=== PATIENT | male | born 1945 | race Caucasian/White ===

== ENCOUNTER 2019-01-24 12:55 | Emergency (ER) | payer MEDICARE, SELFPAY ==
--- NOTE | ~2019-01-24 | CT_ITS ---
EXAMINATION: CT abdomen pelvis w con DATE: 01/24/2019 14:47 INDICATION: Right abdominal pain. TECHNIQUE: Computed tomography (CT) of the abdomen and pelvis was performed with 100 mL Omnipaque 350 intravenous contrast. Automated exposure control and iterative reconstruction technique were employe d. The dose-length product was 881.66 mGy-cm. COMPARISON: CT abdomen and pelvis 07/16/2017 FINDINGS: The visualized portions of the lung bases demonstrate emphysema and chronic lung disease. N o pleural effusion. The heart size is normal. No pericardial effusion. The liver, gallbladder, spleen , pancreas, adrenal glands, and kidneys are normal. The prostate is mildly enlarged. There are no dil ated loops of bowel. The appendix is normal. There are no pathologically enlarged lymph nodes. There is no free intraperitoneal fluid. 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 There is mild lumbar spondylosis. IMPRESSION: 1. No specific etiology for the patient's symptoms. Reviewed, dictated and finalized at location B. ORATE RELATIONS DIRECTOR
[2019-01-24 13:05] VITALS: BP 126/78; PULSE 91; RESP 20; TEMP 36.8; O2SAT 93
--- NOTE | 2019-01-24 13:11 | ED.ABDPAIN ---
HPI - Abdominal Pain General Chief Complaint: Abdominal Pain Stated Complaint: lower r side pain Source: patient Mode of arrival: ambulatory Limitations: no limitations History of Present Illness HPI narrative: Mr. Watson is a 73 year old man who presents with a complaint of flank pain. It started early today. There is dull aching in the RUQ and right flank. He denies n/v/d. No fevers. No sick contacts. He does recall a concern with Potassium in the past. He wonders if this is causing liver damage and presents for evaluation. He recalls that he was seen here 2 days after dizziness. After his discharge, he had no further dizziness and was well until this AM when he started to have RUQ pain. Related Data Home Medications Medication Instructions Recorded Confirmed albuterol sulfate 1.25 mg INHALATION Q4H 01/18/19 01/24/19 albuterol sulfate [ProAir HFA] 1 inh INHALATION QID PRN 01/18/19 01/24/19 carvedilol [Coreg] 3.125 mg PO DAILY 01/18/19 01/24/19 fluticasone propion-salmeterol 1 inh INHALATION Q12H 01/18/19 01/24/19 [Advair Diskus] furosemide 40 mg PO BID 01/18/19 01/24/19 spironolactone 25 mg PO DAILY 01/18/19 01/24/19 tamsulosin 0.4 mg PO DAILY 01/18/19 01/24/19 tiotropium bromide [Spiriva 2 puff INHALATION DAILY 01/18/19 01/24/19 Respimat] Allergies Allergy/AdvReac Type Severity Reaction Status Date / Time azithromycin Allergy Mild Dizziness Verified 01/22/19 10:18 Sulfa (Sulfonamide Allergy Mild Rash Verified 01/22/19 10:18 Antibiotics) Review of Systems Constitutional: Constitutional: Denies fatigue, Denies fever(s) and Denies weakness Eyes: Eyes: Denies blurry vision, Denies itchy eyes and Denies other visual disturbances ENT: Denies dizziness, Denies hearing loss, Denies nasal discharge and Denies sore throat Cardiovascular: Cardiovascular: Denies chest pain and Denies dyspnea Respiratory: Respiratory: Denies cough, Denies dyspnea and Denies wheezing Gastrointestinal: Gastrointestinal: Denies diarrhea, Denies nausea and Denies vomiting Genitourinary: Genitourinary: Denies dysuria, Denies urinary frequency and Denies urinary urgency Musculoskeletal: Musculoskeletal: Denies arthralgias and Denies muscle weakness Integumentary/Breasts: Skin/Breast: Denies rash and Denies wounds Neurologic: Denies dizziness and Denies weakness Psychiatric: Psychiatric: Denies anxiety, Denies depression and Denies suicidal ideation Endocrine: Endocrine: Denies cold intolerance, Denies fatigue and Denies heat intolerance Allergic/Immunologic: Allergic/Immunologic: Denies itchy eyes, Denies seasonal rhinorrhea and Denies wheezing [facility] Social History Social History Smoking status: Former smoker Second hand tobacco smoke exposure: Yes Smoking end date: 02/14/85 Alcohol intake: current Exam Const: General: cooperative, healthy appearing, no acute distress, well developed and alert; No poor hygiene Nutritional Appearance: average body habitus Orientation/consciousness: oriented to person, oriented to place and oriented to time Limitations: No physical limitations HENMT: Head: normal to inspection Ears: hearing grossly normal bilaterally and external ears normal General nose exam: external nose normal Face and sinus: face symmetric and no abrasions Mouth: Yes oral mucosae normal, Yes lip normal, Yes tongue normal, Yes moist mucous membranes and No drooling Teeth and gingiva: dentition normal and gingiva normal Throat: posterior oropharynx normal and uvula midline Eyes: General: appearance normal, both eyes and all related structures Periorbital: periorbital findings normal Eyelids: eyelids normal Conjunctivae: conjunctivae normal Pupils: PERRL EOM: EOM intact bilaterally Neck: Neck: normal visual inspection Resp: Effort & Inspection: able to speak in complete sentences and no respiratory distress Auscultation: clear to auscultation bilater
--- NOTE | 2019-01-24 13:12 | ECG_ITS ---
Measurements Intervals [place] Rate: 85 P: 70 MN: 218 QRS: 55 QRSD: 84 T: 53 QT: 343 QTc: 409 Interpretive Statements SINUS RHYTHM WITH FIRST DEGREE AV BLOCK BASELINE ARTIFACT- I, II, III, AVR, AVF ABNORMAL ECG Electronically Signed On 01-24-2019 13:39:31 PEST CONTROL OPERATOR by Marito Hernandez D.O.
[2019-01-24] MEDS: METOCLOPRAMIDE HCL INJ 10 MG/2 ML VIAL IV PUSH (13:32)
[2019-01-24 13:39] LABS: Hemoglobin 13.1 g/dL (12.4-15.3); Mean Corpuscular HGB Conc 33.6 g/dL (32.0-36.0); Mean Corpuscular Volume 101.3 fL (78.0-102.0); Mean Platelet Volume 9.2 fl (8.7-11.0); Platelet Count Result 176 K/mm3 (150-420); Red Blood Count 3.85 M/mm3 (4.70-6.10); Red Cell Distribution Width 14.9 % (11.6-14.4); White Blood Count 9.4 K/mm3 (4.8-10.8)
[2019-01-24 13:40] LABS: Appearance Urine Clear (Clear); Bilirubin Urine Negative (Negative); Blood Urine Negative (Negative); Color Urine Yellow (Yellow); Glucose Urine UA Negative (Negative); Ketones Urine Negative (Negative); Leukocyte Esterase Ur Negative (Negative); Nitrate Urine Negative (Negative); Protein Urine Negative (Negative); Specific Grav Ur 1.025 (1.010-1.020); Urobilinogen Urine 0.2 mg/dL (0.2-1.0); pH Urine 5.5 (5.0-8.0)
--- NOTE | 2019-01-24 13:49 | PC.NURSE ---
Report to ODILON Melendez.
[2019-01-24 14:02] LABS: Alanine Aminotransferase 32 U/L (16-63); Albumin Level 2.7 g/dL (3.4-5.0); Alkaline Phosphatase 96 U/L (46-116); Amylase 73 U/L (25-115); Aspartate Amino Transferase 21 U/L (15-37); Bilirubin,Total 1.2 mg/dL (0.00-1.00); Blood Urea Nitrogen 15 mg/dL (7-18); Calcium 8.4 mg/dL (8.5-10.1); Carbon Dioxide 29 mmol/L (21-32); Chloride 97 mmol/L (98-108); Estimated CRCL calculation 70 ml/min; Estimated Glomerular Filt Rate > 60; Glucose 98 mg/dL (70-99); Lipase 149 U/L (73-393); Osmolality Calculated 280 mOsm/kg (285-295); Sodium 135 mmol/L (136-145); Thyroid Stimulating Hormone 1.94 uIU/mL (0.36-3.74); Total Protein 5.9 g/dL (6.4-8.2)
--- NOTE | 2019-01-24 14:03 | PC.NURSE ---
RESTING ON STREACHER. APPEARS IN NO DISTRESS. FAMILY AT BEDSIDE.
[2019-01-24 14:04] LABS: Troponin I < 0.02 ng/mL (0.00-0.056)
[2019-01-24 14:10] LABS: Add Urine Microscopic? NO
--- NOTE | 2019-01-24 14:55 | PC.NURSE ---
DOZING EYES COLSED. RESP EASY AND REG. .
[2019-01-24 15:12] VITALS: BP 143/72; PULSE 73; RESP 18; O2SAT 97
== END 2019-01-24 15:14 | disposition home or self-care (01) ==
PROVIDERS: Emergency Provider Family Medicine; PCP Internal Medicine
DX: R10.9 Unspecified abdominal pain (principal); Z87.891 Personal history of nicotine dependence; Z79.899 Other long term (current) drug therapy
CPT/HCPCS: 36415; 74177; 80053; 81003; 82150; 83690; 84443; 84484; 85027; 87040; 93005; 96374; 99283; 99284; J2765; Q9965

== ENCOUNTER 2019-02-16 12:44 | Inpatient (IN) | payer MEDICARE, SELFPAY ==
[2019-02-16 13:00] VITALS: BP 126/81; PULSE 98; RESP 18; TEMP 37.2; O2SAT 98; BMI 26.3
--- NOTE | 2019-02-16 13:20 | PC.NURSE ---
Admitted to skilled swing bed from [facility] for weakness, recent admit for pnx, resp failure, hyoxia, oriented to room and hospital procedures
--- NOTE | 2019-02-16 13:49 | PC.NURSE ---
Lunch tray to patient
[2019-02-16 14:00] VITALS: RESP 20; O2SAT 98
--- NOTE | 2019-02-16 14:35 | PC.NURSE ---
Resting with HOB elevated, working cross word puzzle, call light in reach of patient
[2019-02-16 14:36] VITALS: RESP 20
--- NOTE | 2019-02-16 14:58 | PM.IMHP ---
H&P: HPI History of Present Illness Chief complaint: rehab Narrative: Jose Watson is a 73 year old male WHO WAS ADMITTED to [facility] ON 02/06/2019 FOR SEPSIS, CAP and acute respiratory failure with hypoxemia. Patient presented to hospital with productive cough with yellow sputum, dizziness and increased weakness over the past 2 weeks. He has a past medical history of COPD coronary artery disease, GERD and gout. while hospitalized patient was intubated on 02/07/2019 self extubated himself on 02/13/2019. He was treated with vancomycin and ceftriaxon with growth H. Influenza in his blood culture. He also has a history of alpha 1 anti trypsin deficiency he takes Prolastin infusions for every Tuesday. 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 Clifford Laura was contacted informed us that he will be holding treatment until patient is discharge. Patient has been admitted to a swing bed due to decreased balance, decreased mobility, severely limited functional endurance or motility mobility. PT/ OT has been ordered for this patient. Review of Systems Constitutional: Constitutional: Denies fever(s), Denies headache(s), Reports poor appetite and Reports weakness Cardiovascular: Cardiovascular: Denies chest pain at rest, Denies chest pain with activity, Denies syncope and Denies leg edema Respiratory: Respiratory: Reports chest congestion and Reports cough Gastrointestinal: Gastrointestinal: Denies heartburn, Denies diarrhea, Reports loose stools, Denies nausea and Denies vomiting Musculoskeletal: Musculoskeletal: Reports muscle weakness, Denies numbness, Denies stiffness and Denies tingling PMFSH Past Medical History Medical History (Updated 02/16/19 @ 15:35 by MORENITA Serna) [id number] deficiency COPD (chronic obstructive pulmonary disease) History of coronary artery disease History of gastroesophageal reflux (GERD) History of gout Surgical History Surgical History History of cardiac catheterization History of tonsillectomy Social History Social History Smoking status: Former smoker Tobacco type: cigarettes Second hand tobacco smoke exposure: Yes Smoking end date: 02/14/79 Alcohol intake: current Drinks per week: 8 Substance use: never Gender identity (if verbalized by the patient): Male Spiritual care concerns: No Agree to blood products: Yes Meds Home Medications and Allergies Home Medications Medication Instructions Recorded Confirmed Type tamsulosin 0.4 mg PO QPM 01/18/19 02/16/19 History allopurinol 300 mg PO DAILY 02/10/19 02/16/19 History albuterol sulfate 2.5 mg INHALATION Q4HRT PRN 30 02/16/19 02/16/19 Rx Days each dextromethorphan-guaifenesin 5 ml PO Q4H PRN 02/16/19 02/16/19 History ipratropium bromide 0.5 mg INHALATION Q6HRT PRN 30 02/16/19 02/16/19 Rx Days ml levalbuterol HCl 1.25 mg INHALATION Q6HRT 30 Days 02/16/19 02/16/19 Rx #60 each polyethylene glycol 3350 [Miralax] 17 g PO QAM 30 Days each 02/16/19 02/16/19 Rx potassium chloride 40 meq PO BID 30 Days each 02/16/19 02/16/19 Rx Allergies Allergy/AdvReac Type Severity Reaction Status Date / Time azithromycin Allergy Mild Dizziness Verified 02/06/19 10:20 Sulfa (Sulfonamide Allergy Mild Rash Verified 02/06/19 10:20 Antibiotics) Vital Signs Vital Signs - 24 hr 02/16/19 13:00 02/16/19 14:00 02/16/19 14:36 Temperature 37.2 C Pulse Rate 98 Respiratory Rate 18 20 20 Blood Pressure 126/81 Pulse Oximetry 98 98 Exam Const: General: cooperative, comfortable and no acute distress Resp: Effort & Inspection: able to speak in complete sentences and cough Auscultation: diminished lung sounds Cardio: Jugular venous distension: no JVD Rate: regular rate GI: Inspection: normal to inspection Assessment and Plan Assessment and plan (1) [id number]
[2019-02-16 15:38] VITALS: BP 128/69; PULSE 104; RESP 20; TEMP 36.9; O2SAT 99
[2019-02-16] MEDS: POTASSIUM CHLORIDE 20 MEQ TABLET 40 MEQ PO (17:16)
[2019-02-16] MEDS: TAMSULOSIN HCL 0.4 MG CAPSULE PO (17:16)
[2019-02-16] MEDS: BENZONATATE 100 MG CAPSULE 200 MG PO (17:17)
[2019-02-16] MEDS: IPRATROPIUM 0.5 MG/ALBUTEROL SULFATE 2.5 MG AMPUL.NEB 3 ML INHALATION (18:34)
[2019-02-16] MEDS: SALMET XINAFT/FLUTIC PROPIN 100 MCG/50 MCG INH CAP 1 PUFF INHALATION (18:35)
[2019-02-16 18:40] VITALS: PULSE 88; RESP 18
[2019-02-16] MEDS: PANTOPRAZOLE 40 MG TABLET PO (22:03)
[2019-02-17] VITALS (11 sets, daily range): BP systolic 93–118; BP diastolic 52–74; PULSE 82–107; RESP 16–20; TEMP 36.4–36.6; O2SAT 95–99
[2019-02-17] MEDS: IPRATROPIUM 0.5 MG/ALBUTEROL SULFATE 2.5 MG AMPUL.NEB 3 ML INHALATION ×5 (00:25→23:47)
--- NOTE | 2019-02-17 03:24 | PC.NURSE ---
PT SLEEPING, APPEARS COMFORTABLE. RESPIRATIONS EVEN AND UNLABORED. CALL HYATT IN REACH.
[2019-02-17 05:17] LABS: Hematocrit 30.8 % (37.0-46.0); Mean Corpuscular HGB Conc 32.5 g/dL (32.0-36.0); Mean Corpuscular Hemoglobin 34.7 pg (27.0-31.0); Mean Corpuscular Volume 106.9 fL (78.0-102.0); Mean Platelet Volume 9.7 fl (8.7-11.0); Platelet Count Result 225 K/mm3 (150-420); Red Blood Count 2.88 M/mm3 (4.70-6.10); Red Cell Distribution Width 13.9 % (11.6-14.4); White Blood Count 6.6 K/mm3 (4.8-10.8)
--- NOTE | 2019-02-17 05:25 | PC.NURSE ---
PT SITTING UP AT SIDE OF BED. A&OX3. O2 ON PER NC. COFFEE GIVEN PER PT REQUEST. HAS NO COMPLAINTS. CALL HYATT IN REACH. REMINDED TO CALL WITH NEEDS.
[2019-02-17 05:39] LABS: Alanine Aminotransferase 32 U/L (16-63); Albumin Level 1.9 g/dL (3.4-5.0); Alkaline Phosphatase 91 U/L (46-116); Aspartate Amino Transferase 27 U/L (15-37); Bilirubin,Total 0.6 mg/dL (0.00-1.00); Blood Urea Nitrogen 13 mg/dL (7-18); Calcium 7.7 mg/dL (8.5-10.1); Carbon Dioxide 27 mmol/L (21-32); Chloride 109 mmol/L (98-108); Estimated CRCL calculation 89 ml/min; Estimated Glomerular Filt Rate > 60; Glucose 90 mg/dL (70-99); Osmolality Calculated 294 mOsm/kg (285-295); Sodium 142 mmol/L (136-145); Total Protein 4.9 g/dL (6.4-8.2)
--- NOTE | 2019-02-17 05:54 | PC.NURSE ---
PT UP IN CHAIR, GETTING BREATHING TREATMENT. HAS NO COMPLAINTS. REMINDED TO CALL WITH NEEDS.
--- NOTE | 2019-02-17 07:41 | PC.NURSE ---
Reminded to not get up unassisted, gait is steady, doesn't choose to use walker for stability, patient got self from chair to bed, oxygen is off and on as patient desires, room air sat noted to be 98%, with cough does drop to 80% but rises up to 98% when cough is done, personal items in reach of patient
[2019-02-17] MEDS: SALMET XINAFT/FLUTIC PROPIN 100 MCG/50 MCG INH CAP 1 PUFF INHALATION ×2 (08:38→18:00)
[2019-02-17] MEDS: allopurinoL 300 MG TABLET PO (08:39)
[2019-02-17] MEDS: CALCIUM CARBONATE (TUMS) 500 MG (200 MG ELEMENTAL) PO (08:40)
[2019-02-17] MEDS: POTASSIUM CHLORIDE 20 MEQ TABLET 40 MEQ PO ×2 (08:40→17:06)
[2019-02-17] MEDS: BENZONATATE 100 MG CAPSULE 200 MG PO ×3 (08:41→17:05)
[2019-02-17] MEDS: PANTOPRAZOLE 40 MG TABLET PO ×2 (08:41→21:20)
--- NOTE | 2019-02-17 10:30 | PC.NURSE ---
Up in scherer with walker and gait belt, ambulating well, at side
--- NOTE | 2019-02-17 12:20 | PC.NURSE ---
Up in chair eating lunch, denies needs, takes oxygen off when doesn't feel he needs it, call light in reach of patient
--- NOTE | 2019-02-17 13:11 | PC.NURSE ---
Up in scherer walking with walker with family
--- NOTE | 2019-02-17 13:29 | PC.NURSE ---
Assistance needed with hygiene after having BM/voiding in bathroom. Up off toilet with minimal assistance. Ambulated back to chair using walker with stand by assist. Endurance fair.
--- NOTE | 2019-02-17 14:25 | PC.NURSE ---
laying in bed at this time, [employer] wore him out today
[2019-02-17] MEDS: TAMSULOSIN HCL 0.4 MG CAPSULE PO (17:06)
[2019-02-18] VITALS (11 sets, daily range): BP systolic 100–116; BP diastolic 58–64; PULSE 78–110; RESP 16–20; TEMP 36.6–36.8; O2SAT 93–97
[2019-02-18] MEDS: SALMET XINAFT/FLUTIC PROPIN 100 MCG/50 MCG INH CAP 1 PUFF INHALATION ×2 (05:40→17:56)
[2019-02-18] MEDS: IPRATROPIUM 0.5 MG/ALBUTEROL SULFATE 2.5 MG AMPUL.NEB 3 ML INHALATION ×4 (05:46→23:47)
--- NOTE | 2019-02-18 08:15 | PC.NURSE ---
Up in chair eating breakfast
[2019-02-18] MEDS: POTASSIUM CHLORIDE 20 MEQ TABLET 40 MEQ PO ×2 (08:47→16:45)
[2019-02-18] MEDS: CALCIUM CARBONATE (TUMS) 500 MG (200 MG ELEMENTAL) PO (08:48)
[2019-02-18] MEDS: BENZONATATE 100 MG CAPSULE 200 MG PO ×3 (08:48→16:49)
[2019-02-18] MEDS: PANTOPRAZOLE 40 MG TABLET PO ×2 (08:49→20:27)
[2019-02-18] MEDS: allopurinoL 300 MG TABLET PO (08:49)
--- NOTE | 2019-02-18 10:38 | PC.NURSE ---
feels that patient ankles are more swollen than they have been, was on lasix in the past, no currently a medication on APR, will update hospitalist
--- NOTE | 2019-02-18 11:24 | PC.NURSE ---
Up in scherer with physical therapy
[2019-02-18] MEDS: FUROSEMIDE 40 MG TABLET PO (11:52)
--- NOTE | 2019-02-18 13:18 | PM.IMPN ---
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 Mesa she resumed treatment he is discharged. - continue nebulizers and inhalers - will administer oxygen as needed (2) Generalized weakness: Code(s): R53.1 - Weakness Status: Acute Assessment and Plan: - patient will continue physical therapy/occupation therapy while here. - patient will use appropriate equipment to ambulate to prevent falls. - patient will be given supplement nutrition (3) Community acquired pneumonia: Qualifiers: Laterality: right Lung location: lower lobe of lung Qualified Code(s): J18.9 - Pneumonia, unspecified organism Code(s): J18.9 - Pneumonia, unspecified organism Status: Acute Assessment and Plan: resolved - patient intubated while at [facility] in ICU and given antibiotics. - continue use of IS - continue physical therapy occupational therapy (4) Edema, lower extremity: Code(s): R60.0 - Localized edema Status: Acute Assessment and Plan: -continue home dose of Lasix - elevate legs at night Subjective Date/time seen: 02/18/19 13:18 Was informed by that patient has bilateral LE swelling . Before he was hospitalized at [place] he to the 40 mg of Lasix daily. I will resume his Lasix. he does not have any shortness of breath, chest pain or palpitation at this time and pulses are present bilaterally. 1+ pitting edema bilaterally noted. Review of Systems Constitutional: Constitutional: Denies fever(s), Denies headache(s), Reports poor appetite and Reports weakness ENT: Denies headache(s) Cardiovascular: Cardiovascular: Denies chest pain at rest, Denies chest pain with activity, Denies syncope, Reports edema and Denies leg edema Respiratory: Respiratory: Reports chest congestion and Reports cough Gastrointestinal: Gastrointestinal: Denies heartburn, Denies diarrhea, Reports loose stools, Denies nausea and Denies vomiting Musculoskeletal: Musculoskeletal: Reports muscle weakness, Denies numbness, Denies stiffness and Denies tingling Neurologic: Denies syncope, Denies headache(s), Denies numbness, Denies tingling and Reports weakness Exam Const: General: cooperative, comfortable and no acute distress Resp: Effort & Inspection: able to speak in complete sentences and cough Auscultation: diminished lung sounds Cardio: Jugular venous distension: no JVD Rate: regular rate Peripheral pulses: pulses 2+ throughout GI: Inspection: normal to inspection Extrem: General: edema ( bilateral lower extremities) bilateral Objective Data Vital Signs Vital Signs: Vital Signs - 24 hr 02/17/19 15:08 02/17/19 18:00 02/17/19 18:15 Temperature 36.6 C Pulse Rate 105 H 90 94 Respiratory Rate 20 20 20 Blood Pressure 118/74 Pulse Oximetry 95 02/17/19 20:00 02/18/19 00:00 02/18/19 05:47 Temperature 36.8 C Pulse Rate 94 98 95 Respiratory Rate 20 20 16 Blood Pressure 106/64 Pulse Oximetry 95 94 02/18/19 05:54 02/18/19 07:46 02/18/19 11:52 Temperature 36.8 C Pulse Rate 96 98 89 Respiratory Rate 16 20 16 Blood Pressure 116/64 Pulse Oximetry 93 02/18/19 12:03 Temperature Pulse Rate 89 Respiratory Rate 16 Blood Pressure Pulse Oximetry Intake/Output Intake/Output: Intake & Output 02/15/19 02/16/19 02/17/19 02/18/19 23:59 23:59 23:59 23:59 Intake Total 557 1180 1050 Output Total 25 1 1 Balance 532 1179 1049 Meds/Results Medications: Active Medications Generic Name Dose Route Start Last Admin Trade Name Freq PRN Reason Stop Do
--- NOTE | 2019-02-18 15:49 | PC.NURSE ---
Up in scherer with walker, gait steady, feels like he is ready to go home advised that Physical therapy would re evaluate him in the am and determine length of stay
[2019-02-18] MEDS: TAMSULOSIN HCL 0.4 MG CAPSULE PO (16:49)
[2019-02-19] VITALS: BP 108/63; PULSE 98; RESP 20; TEMP 36.8; O2SAT 96
[2019-02-19 00:05] VITALS: PULSE 96; RESP 20
[2019-02-19] MEDS: IPRATROPIUM 0.5 MG/ALBUTEROL SULFATE 2.5 MG AMPUL.NEB 3 ML INHALATION (05:41)
[2019-02-19 05:42] VITALS: PULSE 90; RESP 16
[2019-02-19] MEDS: SALMET XINAFT/FLUTIC PROPIN 100 MCG/50 MCG INH CAP 1 PUFF INHALATION (05:48)
[2019-02-19 05:51] VITALS: PULSE 88; RESP 16
[2019-02-19 07:15] VITALS: BP 104/52; PULSE 110; PULSE 111; RESP 20; TEMP 36.4; O2SAT 94
[2019-02-19] MEDS: CALCIUM CARBONATE (TUMS) 500 MG (200 MG ELEMENTAL) PO (08:45)
[2019-02-19] MEDS: BENZONATATE 100 MG CAPSULE 200 MG PO (08:45)
[2019-02-19] MEDS: allopurinoL 300 MG TABLET PO (08:45)
[2019-02-19] MEDS: POTASSIUM CHLORIDE 20 MEQ TABLET 40 MEQ PO (08:45)
[2019-02-19] MEDS: FUROSEMIDE 40 MG TABLET PO (08:46)
[2019-02-19] MEDS: PANTOPRAZOLE 40 MG TABLET PO (08:47)
--- NOTE | 2019-02-19 10:25 | PC.NURSE ---
Assisted patient to sent with volunteer to therapy
--- NOTE | 2019-02-19 11:05 | PC.NURSE ---
Returned from therapy
--- NOTE | 2019-02-19 11:22 | PC.NURSE ---
Sitting in chair, no distress, on room air at this time
--- NOTE | 2019-02-19 11:45 | PM.DS ---
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 Mesa she resumed treatment. - continue nebulizers and inhalers (2) Generalized weakness: Code(s): R53.1 - Weakness Status: Acute Assessment and Plan: - patient will continue physical therapy As outpatient for 3 weeks - patient will use appropriate equipment to ambulate to prevent falls. (3) Community acquired pneumonia: Qualifiers: Laterality: right Lung location: lower lobe of lung Qualified Code(s): J18.9 - Pneumonia, unspecified organism Code(s): J18.9 - Pneumonia, unspecified organism Status: Acute Assessment and Plan: resolved - patient intubated while at [facility] in ICU and given antibiotics. (4) Edema, lower extremity: Code(s): R60.0 - Localized edema Status: Acute Assessment and Plan: -continue home dose of Lasix - elevate legs at night DS: Summary Hospital Course Hospital Course: patient admitted to rehab swing bed after being discharged from [facility] for CAP. patient condition has since improved and he has strength since participating in PT /OT. Patient will discharge home with outpatient physical therapy in follow-up with his kitchen and counter worker for his infusion treatment. Patient able to tolerate all meals , slept well and ambulate at baseline. Patient denies SOB, CP, palpitation, extremity numbness, lightheadness, dizziness, constipation, diarrhea, or chills or fever. Patient agree that they are ready for discharge and discharge plan. Time Spent with Patient Time attestation: Total time spent providing and/or coordinating discharge services: Exam Const: General: cooperative, comfortable and no acute distress Resp: Effort & Inspection: able to speak in complete sentences and cough Auscultation: diminished lung sounds Cardio: Jugular venous distension: no JVD Rate: regular rate Peripheral pulses: pulses 2+ throughout GI: Inspection: normal to inspection Extrem: General: edema ( bilateral lower extremities) bilateral Discharge Plan Discharge Attending physician on discharge: Cuco Brown Discharging Clinician: Song Devi Anticipated Discharge Date/Time: 02/19/19 00:00 Patient Disposition: Home, Self-Care Activity: may drive after 2 weeks and as tolerated Diet: low sodium Discharge Instructions: Follow up with primary provider in 1-2 weeks Take medication as prescribed When do I need to call the doctor? ?Signs of infection. These include a fever of 100.4?F (38?C) or higher, chills, very bad sore throat, ear or sinus pain, cough, more sputum or change in color of sputum ?Pass out or feel like you are going to pass out ?Problems thinking clearly ?Trouble breathing or feeling short of breath when at rest ?Cough does not get better with your drugs ?Coughing up blood ?You are not feeling better in 2 to 3 days or you are feeling worse Patient Instructions: Antibiotic Form Stand Alone Forms: General Discharge Information Follow-up/Referrals: Song Devi, SENIOR QA AUTOMATION ENGINEER-C [Advanced Practice Nurse] - Discharge Medications: New guaifenesin [Mucus Relief ER] 600 mg Tablet Extended Release 12hr 1,200 mg PO Q12HR Qty: 30 RF: 0 fluticasone propion-salmeterol [Advair Diskus] 100-50 mcg/dose Blister With Device 1 puff inhalation Q12HRT Qty: 1 RF: 0 calcium carbonate 500 mg calcium (1,250 mg) Tablet,Chewable 200 mg PO DAILY@0800 Qty: 30 RF: 0 pantoprazole 40 mg Ta
--- NOTE | 2019-02-19 12:20 | PC.NURSE ---
Discharge information reviewed with family and patient, no questions voiced, no distress on discharge, personal items returned to patient, home medication returned
--- NOTE | 2019-02-20 08:27 | PCOTNOTE ---
Patient is discharged from skilled OT services as he has been discharged from this facility and returned home with his available for assistance. See POC for goal obtainment. MS
--- NOTE | 2019-03-02 10:04 | PC.NURSE ---
Discharge Call back unable to reach patient.
== END 2019-02-19 12:25 | disposition home or self-care (01) | DRG 947 ==
PROVIDERS: Nurse Practitioner; Admitting Provider Family Medicine; PCP Internal Medicine Pulmonary Disease; Visit Provider Family Medicine
DX: R53.1 Weakness (principal); J18.9 Pneumonia, unspecified organism; E88.01 Alpha-1-antitrypsin deficiency; K21.9 Gastro-esophageal reflux disease without esophagitis; I25.10 Atherosclerotic heart disease of native coronary artery without angina pectoris; J44.9 Chronic obstructive pulmonary disease, unspecified
CPT/HCPCS: 36415; 80053; 85027; 94640; 97110; 97161; 97165; 97530; 97535; A9270

== ENCOUNTER 2019-02-21 14:48 | Outpatient (RCR) | payer MEDICARE, BC, SELFPAY ==
--- NOTE | 2019-02-21 16:24 | PTOPEVAL ---
Thank you for referring this patient to [facility]. Please review, sign, date and return this plan of care SINDY. I agree with and certify that the following plan of care is medically necessary. Referring Physician Date Admitting Provider: Attending Provider: MORENITA Serna Referring Provider: *PT Outpatient Evaluation Start: 02/21/19 14:57 Freq: Status: Active Protocol: Document 02/21/19 14:57 FEROZ (Rec: 02/21/19 15:27 FEROZ [id number]) Therapy Assessment Status Assessment Status Assessment Status Evaluation Outpatient Past Medical History Neurological History Hx Neurological Disorders No Significant History Cardiovascular History Hx Angina Yes Hx Cardiac Arrhythmia Yes Hx Chest Pain Yes Hx Congestive Heart Failure Yes Hx Coronary Artery Disease Yes Hx Hypertension Yes Respiratory History Hx Chronic Obstructive Pulmonary Disease Yes: ALPHA 1 HEREDITARY LUNG (COPD) DISEASE Hx Pneumonia Yes: Gastrointestinal History Hx Other Gastrointestinal Disorders Yes: constipation at times Genitourinary History Hx Genitourinary Disorders No Significant History Musculoskeletal History Hx Musculoskeletal Disorders No Significant History Hematological History Hx Hematological Disorders No Significant History Endocrine History Hx Endocrine Disorders No Significant History HEENT History Hx Tonsillectomy Yes Integumentary History Hx Skin Disorders No Significant History Reproductive History Hx Reproductive Disorders No Significant History Psychosocial History Hx Psychiatric Disorders No Significant History Pain History History of Any Previous or Ongoing No Significant History Instance of Pain Anesthesia History Hx Anesthesia Reactions No Significant History Evaluation Information Problem Diagnosis weakness Onset 02/06/19 Subjective Information Pt. reports that on [place] Query Text:As Reported By Patient/ Estephanie he was feeling ill and Family took him to the ER. He had developed pnuemonia and then developed spesis. He reports that he was in the hospital and taken to the ICU. He spent 1 week in the ICU. Pt. was transferred to acute and then transfered to a rehab bed. He spent 3-4 day in rehab and returned home on 02/19. He reports that he contin
== END 2019-04-06 16:11 | disposition home or self-care (01) ==
LOC: CHSPT 14:48
PROVIDERS: Visit Provider Nurse Practitioner
DX: R53.1 Weakness (principal)
CPT/HCPCS: 97110; 97161; 97530

== ENCOUNTER 2019-04-20 13:07 | Outpatient (CLI) | payer MEDICARE, SELFPAY ==
[2019-04-20 13:24] LABS: Basophils Absolute Auto 0.03 K/mm3 (0.00-0.10); Basophils Percent Auto 0.4 % (0.0-1.0); Eosinophils Absolute Auto 0.03 K/mm3 (0.02-0.50); Eosinophils Percent Auto 0.4 % (1.0-6.0); Hematocrit 45.8 % (37.0-46.0); Hemoglobin 15.1 g/dL (12.4-15.3); Immature Granulocyte Absolute 0.02 K/mm3 (0.00-0.00); Immature Granulocyte Percent A 0.3 % (0.0-0.0); Lymphocytes Absolute Auto 1.45 K/mm3 (1.10-4.50); Lymphocytes Percent Auto 21.6 % (18.0-42.0); Mean Corpuscular Hemoglobin 33.3 pg (27.0-31.0); Mean Corpuscular Volume 100.9 fL (78.0-102.0); Mean Platelet Volume 9.7 fl (8.7-11.0); Monocytes Absolute Auto 0.68 K/mm3 (0.10-0.90); Monocytes Percent Auto 10.1 % (2.0-11.0); Neutrophils Absolute Auto 4.5 K/mm3 (1.7-7.2); Neutrophils Percent Auto 67.2 % (50.0-70.0); Platelet Count Result 177 K/mm3 (150-420); Red Blood Count 4.54 M/mm3 (4.70-6.10); Red Cell Distribution Width 13.3 % (11.6-14.4); White Blood Count 6.7 K/mm3 (4.8-10.8)
[2019-04-20 13:55] LABS: Alanine Aminotransferase 26 U/L (16-63); Albumin Level 3.2 g/dL (3.4-5.0); Alkaline Phosphatase 80 U/L (46-116); Anion Gap 10.4 mmol/L (7-16); Aspartate Amino Transferase 26 U/L (15-37); Bilirubin,Total 0.5 mg/dL (0.00-1.00); Blood Urea Nitrogen 14 mg/dL (7-18); Calcium 8.8 mg/dL (8.5-10.1); Carbon Dioxide 30 mmol/L (21-32); Chloride 105 mmol/L (98-108); Estimated Glomerular Filt Rate 59; Glucose 108 mg/dL (70-99); Osmolality Calculated 293 mOsm/kg (285-295); Potassium 4.4 mmol/L (3.5-5.1); Sodium 141 mmol/L (136-145); Total Protein 5.9 g/dL (6.4-8.2)
== END 2019-04-20 13:08 | disposition home or self-care (01) ==
LOC: CHSLAB 13:10
PROVIDERS: PCP Internal Medicine; Visit Provider Internal Medicine
DX: R53.83 Other fatigue (principal)
CPT/HCPCS: 36415; 80053; 85025

== ENCOUNTER 2019-05-22 10:31 | Outpatient (CLI) | payer MEDICARE, SELFPAY ==
[2019-05-22 11:21] LABS: Anion Gap 12.2 mmol/L (7-16); Blood Urea Nitrogen 16 mg/dL (7-18); Calcium 8.7 mg/dL (8.5-10.1); Carbon Dioxide 30 mmol/L (21-32); Chloride 105 mmol/L (98-108); Estimated Glomerular Filt Rate > 60; Glucose 97 mg/dL (70-99); Osmolality Calculated 297 mOsm/kg (285-295); Potassium 4.2 mmol/L (3.5-5.1); Sodium 143 mmol/L (136-145)
== END 2019-05-22 10:32 | disposition home or self-care (01) ==
LOC: CHSLAB 10:33
PROVIDERS: PCP Internal Medicine; Visit Provider Internal Medicine
DX: E87.6 Hypokalemia (principal)
CPT/HCPCS: 36415; 80048

== ENCOUNTER 2019-09-01 13:12 | Outpatient (CLI) | payer MEDICARE, SELFPAY ==
[2019-09-01 14:16] LABS: Alanine Aminotransferase 30 U/L (16-63); Albumin Level 3.2 g/dL (3.4-5.0); Alkaline Phosphatase 84 U/L (46-116); Anion Gap 9.4 mmol/L (7-16); Aspartate Amino Transferase 36 U/L (15-37); Bilirubin,Total 0.6 mg/dL (0.00-1.00); Blood Urea Nitrogen 13 mg/dL (7-18); Calcium 8.3 mg/dL (8.5-10.1); Carbon Dioxide 30 mmol/L (21-32); Chloride 105 mmol/L (98-108); Estimated Glomerular Filt Rate 57; Glucose 108 mg/dL (70-99); Osmolality Calculated 291 mOsm/kg (285-295); Potassium 4.4 mmol/L (3.5-5.1); Sodium 140 mmol/L (136-145); Total Protein 5.7 g/dL (6.4-8.2)
== END 2019-09-01 13:13 | disposition home or self-care (01) ==
LOC: CHSLAB 13:17
PROVIDERS: PCP Internal Medicine; Visit Provider Internal Medicine Pulmonary Disease
DX: R60.9 Edema, unspecified (principal); R53.83 Other fatigue; E83.42 Hypomagnesemia
CPT/HCPCS: 36415; 80053; 83735

== ENCOUNTER 2019-10-10 07:39 | Outpatient (CLI) | payer MEDICARE, BC, SELFPAY ==
--- NOTE | ~2019-10-10 | CT_ITS ---
EXAMINATION: CTA chest PE protocol DATE: 10/10/2019 08:36 INDICATION: Chest pain and shortness of breath. Prior pulmonary embolism. TECHNIQUE: Computed tomography (CT) pulmonary angiogram of the chest was performed with 100 mL Omnipa que-350 intravenous contrast. Additional 3D reconstructions utilizing coronal maximum intensity proje ction (MIP) were performed. Automated exposure control and iterative reconstruction technique were em ployed. The dose-length product was 608.87 mGy-cm. COMPARISON: None FINDINGS: Excellent contrast opacification of the pulmonary arteries. There is mild streak artifact from dense contrast in the superior vena cava and right atrium. Minimal scattered respiratory motion artifact do es not significantly limit evaluation. 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 Prior pulmonary embolism in the apicoposterior segment of the left upper lobe has resolved. No new p ulmonary emboli. Severe emphysema with lower lung predominance could be consistent with given history of alpha-1 antitrypsin deficiency. Additional unchanged band of atelectasis/scarring in the left low er lobe. Additional mild dependent atelectasis in the bilateral lower lobes. No pneumonia, pulmonary edema or pneumothorax. Tiny bilateral pleural effusions and minimal dependent atelectasis in the bila teral upper and lower lobes. Heart size is normal. No pericardial effusion. Small amount of atheroscl erotic coronary artery calcification along the left anterior descending coronary artery. Thoracic aor ta is normal in caliber with no dissection. Calcified mediastinal lymph nodes there are a few scatter ed splenic calcifications consistent with old granulomatous disease. Chronic mild T2 compression frac ture with a few additional Schmorl's nodes in the thoracic spine. There are bridging osteophytes at m ultiple levels in the spine, consistent with diffuse idiopathic skeletal hyperostosis (DISH). IMPRESSION: 1. 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 No new pulmonary emboli identified . 2. Severe emphysema with basilar predominance consistent with alpha-1 antitrypsin deficiency. 3. Tiny bilateral pleural effusions and unchanged band of atelectasis/scarring in the left lower lobe . Reviewed, dictated and finalized at location A. IMPRESSION: 1. 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 No new pulmonary emboli identified. 2. Severe emphysema with basilar predominance consistent with alpha-1 antitryps in deficiency. 3. Tiny bilateral pleural effusions and unchanged band of atelectasis/scarring in the left lower lobe.
[2019-10-10 08:09] LABS: Estimated Glomerular Filt Rate > 60
== END 2019-10-10 07:40 | disposition home or self-care (01) ==
LOC: CHSIMG 07:41
PROVIDERS: PCP Internal Medicine; Visit Provider Internal Medicine Pulmonary Disease
DX: R05 Cough (principal); R06.00 Dyspnea, unspecified; R07.9 Chest pain, unspecified; I26.99 Other pulmonary embolism without acute cor pulmonale; Z01.84 Encounter for antibody response examination
CPT/HCPCS: 71275; 86769; Q9965

== ENCOUNTER 2019-12-07 07:44 | Outpatient (CLI) | payer MEDICARE, SELFPAY ==
[2019-12-07 07:57] LABS: Basophils Absolute Auto 0.03 K/mm3 (0.00-0.10); Basophils Percent Auto 0.5 % (0.0-1.0); Eosinophils Absolute Auto 0.11 K/mm3 (0.02-0.50); Hemoglobin 14.8 g/dL (12.4-15.3); Immature Granulocyte Absolute 0.02 K/mm3 (0.00-0.00); Immature Granulocyte Percent A 0.4 % (0.0-0.0); Lymphocytes Absolute Auto 1.81 K/mm3 (1.10-4.50); Mean Corpuscular HGB Conc 32.9 g/dL (32.0-36.0); Mean Corpuscular Hemoglobin 34.3 pg (27.0-31.0); Mean Corpuscular Volume 104.2 fL (78.0-102.0); Mean Platelet Volume 9.7 fl (8.7-11.0); Monocytes Absolute Auto 0.55 K/mm3 (0.10-0.90); Neutrophils Percent Auto 54.1 % (50.0-70.0); Platelet Count Result 167 K/mm3 (150-420); Red Blood Count 4.32 M/mm3 (4.70-6.10); Red Cell Distribution Width 14.9 % (11.6-14.4); White Blood Count 5.5 K/mm3 (4.8-10.8)
[2019-12-07 09:11] LABS: Alanine Aminotransferase 30 U/L (16-63); Albumin Level 3.3 g/dL (3.4-5.0); Alkaline Phosphatase 89 U/L (46-116); Anion Gap 5 mmol/L (8-16); Aspartate Amino Transferase 29 U/L (15-37); Bilirubin,Total 0.8 mg/dL (0.00-1.00); Blood Urea Nitrogen 14 mg/dL (7-18); Calcium 8.7 mg/dL (8.5-10.1); Carbon Dioxide 30 mmol/L (21-32); Chloride 105 mmol/L (98-108); Cholesterol 201 mg/dL (0-200); Estimated Glomerular Filt Rate > 60; Folic Acid 5.7 ng/mL (8.6->20); Glucose 89 mg/dL (70-99); HDL Direct 61 mg/dL (40-60); LDL Cholesterol Calculated 130 mg/dL (<130); Osmolality Calculated 289 mOsm/kg (285-295); Potassium 4.4 mmol/L (3.5-5.1); Prostate Specific Antigen 1.2 ng/mL (< OR = 4.0); Sodium 140 mmol/L (136-145); Thyroid Stimulating Hormone 2.31 uIU/mL (0.36-3.74); Total Protein 5.7 g/dL (6.4-8.2); Triglycerides 52 mg/dL (0-150); Vitamin B12 395 pg/mL (193-986)
== END 2019-12-07 07:45 | disposition home or self-care (01) ==
LOC: CHSLAB 07:46
PROVIDERS: PCP Internal Medicine; Visit Provider Internal Medicine
DX: R53.83 Other fatigue (principal); E78.5 Hyperlipidemia, unspecified; Z12.5 Encounter for screening for malignant neoplasm of prostate; R25.2 Cramp and spasm
CPT/HCPCS: 36415; 80053; 80061; 82607; 82746; 83735; 84153; 84443; 85025; G0103

== ENCOUNTER 2020-05-29 07:26 | Outpatient (CLI) | payer MEDICARE, SELFPAY ==
[2020-05-29 07:36] LABS: Basophils Absolute Auto 0.03 K/mm3 (0.00-0.10); Basophils Percent Auto 0.4 % (0.0-1.0); Eosinophils Absolute Auto 0.04 K/mm3 (0.02-0.50); Eosinophils Percent Auto 0.6 % (1.0-6.0); Hematocrit 46.8 % (37.0-46.0); Hemoglobin 15.2 g/dL (12.4-15.3); Immature Granulocyte Absolute 0.04 K/mm3 (0.00-0.00); Immature Granulocyte Percent A 0.6 % (0.0-0.0); Lymphocytes Absolute Auto 1.79 K/mm3 (1.10-4.50); Mean Corpuscular HGB Conc 32.5 g/dL (32.0-36.0); Mean Corpuscular Hemoglobin 33.5 pg (27.0-31.0); Mean Corpuscular Volume 103.1 fL (78.0-102.0); Mean Platelet Volume 9.2 fl (8.7-11.0); Monocytes Percent Auto 12.6 % (2.0-11.0); Neutrophils Absolute Auto 4.4 K/mm3 (1.7-7.2); Neutrophils Percent Auto 60.8 % (50.0-70.0); Platelet Count Result 169 K/mm3 (150-420); Red Blood Count 4.54 M/mm3 (4.70-6.10); Red Cell Distribution Width 13.7 % (11.6-14.4); White Blood Count 7.2 K/mm3 (4.8-10.8)
[2020-05-29 08:32] LABS: Alanine Aminotransferase 38 U/L (16-63); Albumin Level 3.3 g/dL (3.4-5.0); Alkaline Phosphatase 79 U/L (46-116); Anion Gap 7 mmol/L (8-16); Aspartate Amino Transferase 33 U/L (15-37); Bilirubin,Total 0.7 mg/dL (0.00-1.00); Blood Urea Nitrogen 16 mg/dL (7-18); Calcium 8.7 mg/dL (8.5-10.1); Carbon Dioxide 31 mmol/L (21-32); Chloride 104 mmol/L (98-108); Cholesterol 208 mg/dL (0-200); Estimated Glomerular Filt Rate > 60; Folic Acid 6.6 ng/mL (8.6->20); Glucose 94 mg/dL (70-99); HDL Direct 62 mg/dL (40-60); LDL Cholesterol Calculated 134 mg/dL (<130); Osmolality Calculated 295 mOsm/kg (285-295); Potassium 3.9 mmol/L (3.5-5.1); Sodium 142 mmol/L (136-145); Thyroid Stimulating Hormone 2.92 uIU/mL (0.36-3.74); Triglycerides 61 mg/dL (0-150); Vitamin B12 365 pg/mL (193-986)
== END 2020-05-29 07:27 | disposition home or self-care (01) ==
LOC: CHSLAB 07:28
PROVIDERS: PCP Internal Medicine; Visit Provider Internal Medicine
DX: R53.83 Other fatigue (principal); E78.00 Pure hypercholesterolemia, unspecified; M10.9 Gout, unspecified; R25.2 Cramp and spasm
CPT/HCPCS: 36415; 80053; 80061; 82607; 82746; 83735; 84443; 84550; 85025

== ENCOUNTER 2020-11-20 08:41 | Outpatient (CLI) | payer MEDICARE, BC, SELFPAY ==
--- NOTE | ~2020-11-20 | XR_ITS ---
XR chest 2V DATE: 11/20/2020 08:58 INDICATION: Shortness of breath. COPD. TECHNIQUE: PA and lateral views COMPARISON: 10/10/2019 CT pulmonary scan 02/26/2019 2 view chest FINDINGS: There is bilateral hyperinflation and flattening the diaphragm consistent with COPD. No pulmonary infiltrate or consolidation, pleural effusion or pulmonary vascular congestion or pneumo thorax. Normal heart size. No hilar or mediastinal enlargement. Degenerative spurring of the thoracic spine. IMPRESSION: COPD Reviewed, dictated and finalized at location A. IMPRESSION: COPD
== END 2020-11-20 08:42 | disposition home or self-care (01) ==
PROVIDERS: PCP Internal Medicine; Visit Provider Internal Medicine Pulmonary Disease
DX: J44.9 Chronic obstructive pulmonary disease, unspecified (principal)
CPT/HCPCS: 71046

== ENCOUNTER 2020-12-08 18:05 | Observation (INO) | payer MEDICARE, BC, SELFPAY ==
--- NOTE | ~2020-12-08 | XR_ITS ---
XR chest 1V portable 12/08/2020 18:45 Indication: Chest pain and dyspnea Procedure: AP portable chest Comparison: Comparison to multiple prior studies sequentially, with oldest reviewed study dated 01/16. Findings: Heart size normal. There is chronic right basilar atelectasis/scarring. No significant effu davon, edema or pneumothorax. No acute osseous abnormality. Impression: 1: No acute cardiopulmonary disease. Chronic right basilar atelectasis/scarring. Reviewed, dictated and finalized at location A. Impression: 1: No acute cardiopulmonary disease. Chronic right basilar atelectasis/scarring .
--- NOTE | ~2020-12-08 | CT_ITS ---
EXAMINATION: CTA chest abdomen pelvis DATE: 12/08/2020 21:10 CDT INDICATION: Shortness of breath with sudden chest pain. Epigastric pain. TECHNIQUE: Computed tomographic angiography (CTA) of the chest, abdomen, and pelvis was performed wit hout and with 100 mL Omnipaque-350 intravenous contrast. The dose-length product was 1117.13 mGy-cm. Maximum intensity projection 3D-reconstructions of the aorta and other arteries were constructed by estela dc technologist on a separate workstation. Automated exposure control and iterative reconstruction te parisa were employed. COMPARISON: CT dated 10/10/2019. FINDINGS: CHEST CTA: Heart size is normal. No evidence for aortic aneurysm or dissection. No lymphadenopathy. No significa nt pleural or pericardial effusion there is emphysema. There are coarse interstitial infiltrates of dc lower lung zones which may represent chronic fibrosis. There is honeycombing in the left lower lob e medially. Contrast enhancement of the pulmonary arteries limited for evaluation of pulmonary emboli sm. ABDOMEN AND PELVIS CTA: The liver, spleen, pancreas, adrenal glands are unremarkable. There is renal atrophy. Gallbladder is present. There is mild atherosclerosis of the aorta without aneurysm or dissection. No lymphadenopath y. Normal appendix. Small hiatal hernia. No free air or free fluid. Mildly prominent prostate gland. Nonobstructive bowel gas pattern. Mild thoracic and lumbar spondylosis. 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 The celiac axis, SMA and GUSTAVO are patent. The renal rekha alicia are patent. There is mild stenosis of the right renal artery. IMPRESSION: 1. No significant vascular abnormality. No evidence for aortic aneurysm or dissection. 2: Emphysema. Coarse interstitial infiltrates of the lower lungs, likely superimposed pulmonary fibro sis. Reviewed, dictated and finalized at location A. IMPRESSION: 1. No significant vascular abnormality. No evidence for aortic aneurysm or diss ection. 2: Emphysema. Coarse interstitial infiltrates of the lower lungs, likely superi mposed pulmonary fibrosis.
--- NOTE | 2020-12-08 18:15 | ECG_ITS ---
Measurements Intervals [place] Rate: 92 P: 84 IA: 212 QRS: 67 QRSD: 89 T: 77 QT: 317 QTc: 392 Interpretive Statements SINUS RHYTHM WITH FIRST DEGREE AV BLOCK BASELINE ARTIFACT- II, III, AVR, AVL, AVF, V1-V6 ABNORMAL ECG Electronically Signed On 12-09-2020 15:47:23 CDT by Marito Hernandez D.O.
--- NOTE | 2020-12-08 18:16 | PC.NURSE ---
triage in waiting room. pt pulse ox is 96%, HR 83, with normal respirations, sitting comfortably in no distress.
[2020-12-08 18:30] VITALS: BP 144/76; PULSE 93; RESP 21; TEMP 37; O2SAT 96
[2020-12-08 18:48] VITALS: PULSE 93
[2020-12-08 19:36] LABS: Basophils Absolute Auto 0.03 K/mm3 (0.00-0.10); Basophils Percent Auto 0.2 % (0.0-1.0); Eosinophils Absolute Auto 0.03 K/mm3 (0.02-0.50); Eosinophils Percent Auto 0.2 % (1.0-6.0); Hematocrit 45.7 % (37.0-46.0); Hemoglobin 14.9 g/dL (12.4-15.3); Immature Granulocyte Absolute 0.04 K/mm3 (0.00-0.00); Immature Granulocyte Percent A 0.3 % (0.0-0.0); Lymphocytes Percent Auto 10.4 % (18.0-42.0); Mean Corpuscular HGB Conc 32.6 g/dL (32.0-36.0); Mean Corpuscular Hemoglobin 34.1 pg (27.0-31.0); Mean Corpuscular Volume 104.6 fL (78.0-102.0); Mean Platelet Volume 9.7 fl (8.7-11.0); Monocytes Percent Auto 7.4 % (2.0-11.0); Neutrophils Absolute Auto 10.9 K/mm3 (1.7-7.2); Neutrophils Percent Auto 81.5 % (50.0-70.0); Platelet Count Result 175 K/mm3 (150-420); Red Blood Count 4.37 M/mm3 (4.70-6.10); Red Cell Distribution Width 13.1 % (11.6-14.4); White Blood Count 13.4 K/mm3 (4.8-10.8)
[2020-12-08 19:51] LABS: Alanine Aminotransferase 35 U/L (16-63); Albumin Level 3.2 g/dL (3.4-5.0); Alkaline Phosphatase 90 U/L (46-116); Anion Gap 7 mmol/L (8-16); Aspartate Amino Transferase 30 U/L (15-37); Bilirubin,Total 0.8 mg/dL (0.00-1.00); Blood Urea Nitrogen 13 mg/dL (7-18); Calcium 8.2 mg/dL (8.5-10.1); Carbon Dioxide 30 mmol/L (21-32); Chloride 103 mmol/L (98-108); Estimated CRCL calculation 47 ml/min; Estimated Glomerular Filt Rate 52; Glucose 115 mg/dL (70-99); Osmolality Calculated 291 mOsm/kg (285-295); Potassium 4.3 mmol/L (3.5-5.1); Sodium 140 mmol/L (136-145); Total Protein 5.9 g/dL (6.4-8.2)
[2020-12-08 19:52] LABS: D Dimer 0.42 mg/L (0.19-0.50); Partial Thromboplastin Time 24.1 SEC (23.90-30.70); Prothrombin Time 11.1 Seconds (9.50-12.10)
[2020-12-08 20:06] LABS: Influenza B QL RT-PCR Negative (Negative); SARS-CoV-2 RNA PCR Negative (Negative)
[2020-12-08 20:07] LABS: Influenza A QL RT-PCR Negative (Negative)
[2020-12-08 20:07] LABS: Influenza Control Valid (Valid); SARS-CoV-2 Ag Negative (Negative)
[2020-12-08 20:25] LABS: Lipase 184 U/L (73-393); NT Pro B Type Natriuretic Pept 307 pg/mL (0-450); Troponin I 5.6 ng/L (0.00-60.4)
[2020-12-08 20:30] VITALS: PULSE 100; RESP 20; O2SAT 100
[2020-12-08] MEDS: IPRATROPIUM 0.5 MG/ALBUTEROL SULFATE 2.5 MG AMPUL.NEB 3 ML INHALATION (20:34)
--- NOTE | 2020-12-08 20:54 | ED.CHESTPAIN ---
HPI - Chest Pain General Chief Complaint: Chest Pain Stated Complaint: pain when breathing, trouble breathing, neck pain Time Seen by Provider: 12/08/20 18:15 Source: patient Mode of arrival: ambulatory Limitations: no limitations History of Present Illness HPI narrative: 75-year-old man with a history of alpha-1 antitrypsin deficiency, COPD, GERD and DVT comes in today complaining of shortness of breath and lower chest/ upper abdomen pain when taking a deep breath. Patient states his symptoms started rather suddenly after taking a basket of mushrooms to his neighbor's and he is worse with exertion. He has felt sweaty, nauseous and had coughing. He had some vomiting on arrival to the emergency department. The pain radiates to his neck. he denies any recent sick exposures, fever, syncope, abdominal pain or dysuria. MD complaint: chest pain Pertinent past history: other ( COPD) Onset (ago): hour(s) (1) Timing of current episode: constant and increasing Prior episodes: No Onset: during exertion Pain location: subxiphoid Pain radiation: neck Severity: moderate Quality: tightness and sharp Relieving factors: nothing Exacerbating factors: exertion, inspiration and palpation Associated symptoms: nausea, vomiting, diaphoresis, dyspnea and cough Treatment prior to arrival: none Risk Factors Pulmonary embolism risk factors: history of deep vein thrombosis Related Data Home Medications Medication Instructions Recorded Confirmed clonazepam 0.5 mg tablet 0.5 mg PO .hs tablet 04/17/19 12/08/20 Allergies Allergy/AdvReac Type Severity Reaction Status Date / Time azithromycin Allergy Mild Dizziness Verified 11/18/20 14:56 Sulfa (Sulfonamide Allergy Mild Rash Verified 11/18/20 14:56 Antibiotics) Review of Systems Review of Systems: All systems reviewed & are unremarkable except as noted in HPI and below Constitutional: Constitutional: Denies chills, Denies fever(s) and Denies weakness ENT: Denies nasal congestion and Denies sore throat Cardiovascular: Cardiovascular: Reports chest pain and Reports radiating jaw, neck or arm pain Respiratory: Respiratory: Reports chest congestion, Reports cough and Reports dyspnea Gastrointestinal: Gastrointestinal: Denies abdominal pain, Reports nausea and Reports vomiting Genitourinary: Genitourinary: Denies dysuria and Denies urinary frequency Musculoskeletal: Musculoskeletal: Denies back pain, Denies arthralgias and Denies joint swelling Integumentary/Breasts: Skin/Breast: Denies pruritus, Denies erythema and Denies rash Neurologic: Denies vertigo, Denies dizziness, Denies syncope, Denies focal weakness and Denies numbness Hematologic/Lymphatic: Hematologic/Lymphatic: Denies easy bleeding and Denies easy bruising Allergic/Immunologic: Allergic/Immunologic: Denies lip swelling and Denies throat swelling PMFSH Past Medical History Medical History Acute respiratory failure with hypoxemia Hxajp-1-oajrfvvgcxf deficiency Community acquired pneumonia (~02/24/19) COPD (chronic obstructive pulmonary disease) History of coronary artery disease History of deep venous thrombosis or pulmonary embolus History of gastroesophageal reflux (GERD) History of gout Hypomagnesemia (~02/24/19) Leukocytosis Orthostatic hypotension Sepsis Sepsis with acute respiratory failure and septic shock Severe sepsis Surgical History Surgical History History of cardiac catheterization History of tonsillectomy Family History Family History Other Unknown family medical history Social History Social History Smoking status: Never smoker Tobacco type: cigarettes Second hand tobacco smoke exposure: Yes Smoking end date: 02/14/79 Alcohol intake: never Drinks per week: 8
[2020-12-08] MEDS: MAG HYDROX/ALUMINUM HYD/SIMETH 30 ML, PHENobarb/HYOSCY/ATROPINE/SCOP 32.4 MG, LIDOCAINE... PO (21:30)
[2020-12-08] MEDS: HYDROmorphone HCL INJ (*CRX) 2 MG/ML VIAL 0.5 MG IV PUSH (21:30)
[2020-12-08] MEDS: ONDANSETRON INJ 4 MG/2 ML VIAL IV PUSH (21:30)
[2020-12-08] MEDS: SODIUM CHLORIDE 0.9% IV 1,000 ML 999 ML IV CONT (21:30)
[2020-12-08] MEDS: methylPREDNISolone SOD SUCC 125 MG VIAL IV PUSH (22:18)
--- NOTE | 2020-12-08 22:39 | PC.NURSE ---
MEDIA MARKETING MANAGER PROVIDED TELEPHONE REPORT TO ODILON LANG
[2020-12-08 22:40] VITALS: PULSE 107; RESP 25; O2SAT 94
[2020-12-08 22:44] LABS: Troponin I 8.6 ng/L (0.00-60.4)
[2020-12-08 23:15] VITALS: PULSE 101; RESP 22; O2SAT 97
[2020-12-08] MEDS: SODIUM CHLORIDE 0.9% IV 1,000 ML 100 ML IV CONT (23:24)
[2020-12-08 23:48] VITALS: BMI 27.3
[2020-12-09] VITALS: BP 117/60; PULSE 101; PULSE 99; RESP 22; TEMP 38; O2SAT 97
[2020-12-09] MEDS: guaiFENesin 12 HR 600 MG TABCR 1200 MG PO ×2 (00:01→08:56)
--- NOTE | 2020-12-09 01:15 | PC.NURSE ---
Patient rounding completed. Patient is sleeping comfortably in bed, with no signs of pain or discomfort.
[2020-12-09 01:22] LABS: Troponin I 12.2 ng/L (0.00-60.4)
--- NOTE | 2020-12-09 01:33 | ADMGEN ---
This patient, Jose Watson, was admitted to 2nd Floor Room 205-2. Patient was oriented to hospital policies and general routines including ID bracelet, bed and alarms, pain management, procedures, bathroom and other care routines, personal items, smoking policy, room service/diet, and visiting hours. Information on how to activate the Rapid Response Team has been discussed. Patient is encouraged to report perceived risks to care and to ask questions if they do not understand what they are told or what they should do.
--- NOTE | 2020-12-09 02:00 | PC.NURSE ---
Patient rounding completed. Patient is sleeping comfortably in bed, with no signs of pain or discomfort.
[2020-12-09 04:00] VITALS: BP 99/57; PULSE 87; PULSE 88; RESP 24; TEMP 36.9; O2SAT 94
[2020-12-09 05:05] LABS: Hematocrit 45.2 % (37.0-46.0); Hemoglobin 14.9 g/dL (12.4-15.3); Mean Corpuscular Hemoglobin 34.5 pg (27.0-31.0); Mean Corpuscular Volume 104.6 fL (78.0-102.0); Mean Platelet Volume 9.8 fl (8.7-11.0); Platelet Count Result 159 K/mm3 (150-420); Red Blood Count 4.32 M/mm3 (4.70-6.10); Red Cell Distribution Width 13.1 % (11.6-14.4)
[2020-12-09 05:17] LABS: White Blood Count 22.2 K/mm3 (4.8-10.8)
[2020-12-09 05:23] LABS: Magnesium 1.7 mg/dL (1.8-2.4); Troponin I 9.9 ng/L (0.00-60.4)
[2020-12-09 05:24] LABS: Band Neutrophils Percent 8 % (0-6); Basophils Percent Manual 0 % (0-1); Eosinophils Percent Manual 0 % (1-6); Lymphocytes Absolute Manual 0.88 K/mm3 (1.1-4.5); Lymphocytes Percent Manual 4 % (18-44); Monocytes Absolute Manual 1.11 K/mm3 (0.1-0.90); Monocytes Percent Manual 5 % (3-9); Neutrophils Percent Manual 83 % (46-73); Platelet Estimate Adequate (Adequate); Total Cells Counted 100
[2020-12-09] MEDS: SALMET XINAFT/FLUTIC PROPIN 100 MCG/50 MCG INH CAP 1 PUFF INHALATION (06:09)
[2020-12-09 07:50] VITALS: BP 106/62; PULSE 61; PULSE 85; RESP 20; TEMP 37.2; O2SAT 96
[2020-12-09] MEDS: CALCIUM CARBONATE (TUMS) 500 MG (200 MG ELEMENTAL) PO (08:54)
[2020-12-09] MEDS: MAGNESIUM OXIDE 400 MG TABLET PO (08:55)
[2020-12-09] MEDS: APIXABAN 2.5 MG TABLET 10 MG PO (08:55)
[2020-12-09] MEDS: FUROSEMIDE 40 MG TABLET PO (08:55)
[2020-12-09] MEDS: allopurinoL 300 MG TABLET PO (08:55)
[2020-12-09] MEDS: POTASSIUM CHLORIDE 20 MEQ TABLET 40 MEQ PO (08:55)
[2020-12-09] MEDS: SODIUM CHLORIDE 0.9% IV 1,000 ML 100 ML IV CONT (08:59)
[2020-12-09 10:19] LABS: Add Urine Microscopic? NO; Appearance Urine Clear (Clear); Bilirubin Urine Negative (Negative); Blood Urine Negative (Negative); Color Urine Yellow (Yellow); Glucose Urine UA Negative (Negative); Ketones Urine Negative (Negative); Leukocyte Esterase Ur Negative (Negative); Nitrate Urine Negative (Negative); Protein Urine Negative (Negative); Urobilinogen Urine 0.2 mg/dL (0.2-1.0)
[2020-12-09 10:27] LABS: Anion Gap 7 mmol/L (8-16); Blood Urea Nitrogen 12 mg/dL (7-18); Calcium 8.3 mg/dL (8.5-10.1); Carbon Dioxide 28 mmol/L (21-32); Chloride 104 mmol/L (98-108); Estimated CRCL calculation 56 ml/min; Estimated Glomerular Filt Rate > 60; Glucose 127 mg/dL (70-99); Osmolality Calculated 289 mOsm/kg (285-295); Potassium 4.3 mmol/L (3.5-5.1); Sodium 139 mmol/L (136-145)
--- NOTE | 2020-12-09 10:34 | PM.SD2 ---
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 Pt was admitted under observation for COPD likely related to his alpha-1 antitrypsin deficiency. Pt states he has home oxygen that he uses PRN and Albuterol that he uses BID but can use them up to Q4H. This AM Pt states his abdominal pain has resolved and he is breathing without difficulty this AM on room air. <LION Celaya - Last Filed: 12/09/20 11:51> FORMERLY [facility] Past Medical History Medical History: Medical History (Updated 12/09/20 @ 07:59 by LION Celaya) Acute respiratory failure with hypoxemia Baklo-6-rzkccflilew deficiency Bilateral flank pain Bilateral lower extremity edema Community acquired pneumonia (~02/24/19) COPD (chronic obstructive pulmonary disease) Dietary counseling and surveillance (11/08/16) WINTER (dyspnea on exertion) Encounter for screening for malignant neoplasm of prostate Gastro-esophageal reflux disease without esophagitis Generalized abdominal pain History of coronary artery disease History of deep venous thrombosis or pulmonary embolus History of gastroesophageal reflux (GERD) History of gout Hypomagnesemia (~02/24/19) Leukocytosis Lower abdominal pain Orthostatic hypotension Personal history of colonic polyps Retinal artery branch occlusion, right eye Sepsis Sepsis with acute respiratory failure and septic shock Severe sepsis Wheezing <LION Celaya - Last Filed: 12/09/20 11:51> Surgical History Surgical History: Surgical History History of cardiac catheterization History of tonsillectomy <LION Celaya - Last Filed: 12/09/20 11:51> Family History Family History: Family History Other Unknown family medical history <LION Celaya - Last Filed: 12/09/20 11:51> Social History Social History: Social History Smoking status: Former smoker Tobacco type: cigarettes Second hand tobacco smoke exposure: Yes Smoking end date: 02/14/79 Alcohol intake: never Drinks per week: 8 Substance use: never Gender identity (if verbalized by the patient): Male Spiritual care concerns: No Agree to blood products: Yes <LION Celaya - Last Filed: 12/09/20 11:51> Same Day Admit/Disch: Med Pre-admit Medications Home Medications: Home Medications Medication Instructions Recorded Confirmed Type albuterol sulfate 2.5 mg INHALATION Q4HRT PRN 30 02/16/19 12/08/20 Rx Days each ipratropium bromide 0.5 mg INHALATION Q6HRT PRN 30 02/16/19 12/08/20 Rx Days ml levalbuterol HCl 1.25 mg INHALATION Q6HRT 30 Days 02/16/19 12/08/20 Rx #60 each calcium carbonate 200 mg PO DAILY@0800 #30 tablet 02/19/19 12/08/20 Rx fluticasone propion-salmeterol 1 puff INHALATION Q12HRT #1 ea 02/19/19 12/08/20 Rx [Advair Diskus] furosemide 40 mg PO DAILY #30 tablet 02/19/19 12/08/20 Rx guaifenesin [Mucus Relief ER] 1,200 mg PO Q12HR #30 tablet 02/19/19 12/08/20 Rx potassium chloride [K-Tab] 40 meq PO DAILY@0800 30 Days #120 02/26/19 12/08/20 Rx tablet allopurinol 300 mg tablet 300 mg PO DAILY #90 tablet 09/01/20 12/08/20 Rx tamsulosin 0.4 mg capsule 0.4 mg PO QPM #90 cap 11/18/20 12/08/20 Rx apixaban [Eliquis] 5 mg PO BID #60 tablet 12/09/20 Rx doxycycline monohydrate 100 mg PO BID #20 cap 12/09/20 Rx magnesium oxide 400 mg PO BID 30 Days #60 tablet 12/09/20 Rx prednisone See Rx Instructions .ROUTE 12/09/20 Rx .COMPLEX #21 tablet <LION Celaya - Last Filed: 12/09/20 11:51> Exam Const: General: c
[2020-12-09 11:47] VITALS: BP 132/65; PULSE 85; RESP 18; TEMP 36.9; O2SAT 98
--- NOTE | 2020-12-16 15:21 | PC.NURSE ---
Pt states he received and understood his discharge instructions. Pt has no other comments.
== END 2020-12-09 12:40 | disposition home health service (06) ==
LOC: CHSED 18:07 → CHS2ND 22:40
PROVIDERS: Nurse Practitioner Family; Admitting Provider Emergency Medicine; Emergency Provider Emergency Medicine; PCP Internal Medicine; Visit Provider Emergency Medicine
DX: E88.01 Alpha-1-antitrypsin deficiency (principal); J44.9 Chronic obstructive pulmonary disease, unspecified; I25.10 Atherosclerotic heart disease of native coronary artery without angina pectoris; N17.9 Acute kidney failure, unspecified; K21.9 Gastro-esophageal reflux disease without esophagitis; M10.9 Gout, unspecified; Z86.010 Personal history of colon polyps; Z87.891 Personal history of nicotine dependence; Z86.718 Personal history of other venous thrombosis and embolism; Z79.01 Long term (current) use of anticoagulants; Z20.822 Contact with and (suspected) exposure to COVID-19; Z79.899 Other long term (current) drug therapy
CPT/HCPCS: 36415; 71045; 71275; 74174; 80048; 80053; 81003; 83690; 83735; 83880; 84484; 85025; 85380; 85610; 85730; 87086; 87426; 87502; 87804; 93005; 94640; 96361; 96374; 96375; 99285; A9270; C9803; G0378; J1170; J2405; J2930; J7030; Q9967; U0003; U0005

== ENCOUNTER 2020-12-11 07:13 | Outpatient (CLI) | payer MEDICARE, SELFPAY ==
[2020-12-11 07:24] LABS: Basophils Absolute Auto 0.01 K/mm3 (0.00-0.10); Basophils Percent Auto 0.1 % (0.0-1.0); Hematocrit 43.4 % (37.0-46.0); Hemoglobin 14.3 g/dL (12.4-15.3); Immature Granulocyte Absolute 0.07 K/mm3 (0.00-0.00); Immature Granulocyte Percent A 0.6 % (0.0-0.0); Lymphocytes Absolute Auto 1.31 K/mm3 (1.10-4.50); Lymphocytes Percent Auto 11.9 % (18.0-42.0); Mean Corpuscular HGB Conc 32.9 g/dL (32.0-36.0); Mean Corpuscular Hemoglobin 34.7 pg (27.0-31.0); Mean Corpuscular Volume 105.3 fL (78.0-102.0); Mean Platelet Volume 10.1 fl (8.7-11.0); Monocytes Absolute Auto 0.69 K/mm3 (0.10-0.90); Monocytes Percent Auto 6.3 % (2.0-11.0); Neutrophils Absolute Auto 8.9 K/mm3 (1.7-7.2); Neutrophils Percent Auto 81.1 % (50.0-70.0); Platelet Count Result 157 K/mm3 (150-420); Red Blood Count 4.12 M/mm3 (4.70-6.10); Red Cell Distribution Width 13.1 % (11.6-14.4)
[2020-12-11 08:42] LABS: Alanine Aminotransferase 43 U/L (16-63); Albumin Level 2.7 g/dL (3.4-5.0); Alkaline Phosphatase 97 U/L (46-116); Anion Gap 8 mmol/L (8-16); Aspartate Amino Transferase 35 U/L (15-37); Bilirubin,Total 0.6 mg/dL (0.00-1.00); Blood Urea Nitrogen 19 mg/dL (7-18); Calcium 8.3 mg/dL (8.5-10.1); Carbon Dioxide 30 mmol/L (21-32); Chloride 104 mmol/L (98-108); Cholesterol 173 mg/dL (0-200); Estimated Glomerular Filt Rate > 60; Folic Acid 3.9 ng/mL (8.6->20); Glucose 93 mg/dL (70-99); HDL Direct 75 mg/dL (40-60); LDL Cholesterol Calculated 89 mg/dL (<130); Osmolality Calculated 296 mOsm/kg (285-295); Potassium 4.5 mmol/L (3.5-5.1); Prostate Specific Antigen 1.5 ng/mL (< OR = 4.0); Sodium 142 mmol/L (136-145); Total Protein 5.2 g/dL (6.4-8.2); Triglycerides 46 mg/dL (0-150); Vitamin B12 433 pg/mL (193-986)
== END 2020-12-11 07:14 | disposition home or self-care (01) ==
LOC: CHSLAB 07:15
PROVIDERS: PCP Internal Medicine; Visit Provider Internal Medicine
DX: D64.9 Anemia, unspecified (principal); R53.83 Other fatigue; E78.00 Pure hypercholesterolemia, unspecified; Z12.5 Encounter for screening for malignant neoplasm of prostate; J44.9 Chronic obstructive pulmonary disease, unspecified
CPT/HCPCS: 36415; 80053; 80061; 82607; 82746; 84153; 84443; 85025; G0103

== ENCOUNTER 2020-12-14 13:03 | Emergency (ER) | payer MEDICARE, BC, SELFPAY ==
--- NOTE | ~2020-12-14 | CT_ITS ---
EXAMINATION: CT brain wo con DATE: 12/14/2020 14:14 INDICATION: Status post fall. Syncope. TECHNIQUE: Computed tomography (CT) of the head was performed without intravenous contrast. The dose- length product was 681.00 mGy-cm. Automated exposure control and iterative reconstruction technique w ere employed. COMPARISON: CT dated 01/18/2019 FINDINGS: Generalized atrophy. There are scattered mild periventricular and subcortical white matter changes, most likely related to small vessel ischemic disease (microangiopathy). No ventriculomegaly or midline shift. No acute intracranial hemorrhage, infarction, mass or mass effect. Basilar cisterns are patent. Paranasal sinuses and mastoids are pneumatized. No depressed skull fractures. IMPRESSION: 1. No acute intracranial abnormality. Reviewed, dictated and finalized at location A.
--- NOTE | ~2020-12-14 | CT_ITS ---
EXAMINATION: CT diagnostic chest wo con DATE: 12/14/2020 14:13 INDICATION: Right lower rib pain after fall TECHNIQUE: Computed tomography (CT) of the chest was performed without intravenous contrast. The dose -length product was 360.00 mGy-cm. Automated exposure control and iterative reconstruction technique were employed. COMPARISON: CT dated 12/08/2020 FINDINGS: New small left pleural effusion. Heart size is normal. No thoracic lymphadenopathy. No acut e displaced rib fracture. There is a chronic endplate compression deformity at T2. Mild thoracic spon dylosis. There is emphysema. There are chronic interstitial changes of the lower lobes with bilateral lower lobe atelectasis/scarring. These findings are improved compared with 02/07/2019. No pneumothor ax. No endobronchial lesions. There is chronic granulomatous disease of the mediastinum. There is a 2 mm left lower lobe nodule, likely benign. IMPRESSION: 1. New small left pleural effusion. Otherwise, no acute cardiopulmonary disease. 2: Benign chronic bibasilar interstitial infiltrates with lower lobe atelectasis/scarring. Reviewed, dictated and finalized at location A. IMPRESSION: 1. New small left pleural effusion. Otherwise, no acute cardiopulmonary disease . 2: Benign chronic bibasilar interstitial infiltrates with lower lobe atelectas is/scarring.
[2020-12-14 13:10] VITALS: BP 133/79; PULSE 81; RESP 20; TEMP 36.6; O2SAT 97
--- NOTE | 2020-12-14 13:27 | ECG_ITS ---
Measurements Intervals [place] Rate: 85 P: 83 PA: 192 QRS: 72 QRSD: 84 T: 83 QT: 337 QTc: 402 Interpretive Statements SINUS RHYTHM DELAYED PRECORDIAL R/S TRANSITION BASELINE ARTIFACT- I, II, III, AVR, AVL, AVF BORDERLINE ECG Electronically Signed On 12-15-2020 7:52:03 CDT by Marito Hernandez D.O.
[2020-12-14 13:47] LABS: Hematocrit 46.7 % (37.0-46.0); Hemoglobin 15.5 g/dL (12.4-15.3); Mean Corpuscular HGB Conc 33.2 g/dL (32.0-36.0); Mean Corpuscular Hemoglobin 34.5 pg (27.0-31.0); Mean Platelet Volume 9.6 fl (8.7-11.0); Platelet Count Result 181 K/mm3 (150-420); Red Blood Count 4.49 M/mm3 (4.70-6.10); Red Cell Distribution Width 13.1 % (11.6-14.4); White Blood Count 11.5 K/mm3 (4.8-10.8)
[2020-12-14] MEDS: SODIUM CHLORIDE 0.9% IV 500 ML 999 ML IV CONT (14:00)
[2020-12-14 14:05] LABS: Alanine Aminotransferase 55 U/L (16-63); Alkaline Phosphatase 98 U/L (46-116); Anion Gap 6 mmol/L (8-16); Aspartate Amino Transferase 36 U/L (15-37); Bilirubin,Total 0.8 mg/dL (0.00-1.00); Blood Urea Nitrogen 14 mg/dL (7-18); Calcium 8.5 mg/dL (8.5-10.1); Carbon Dioxide 31 mmol/L (21-32); Chloride 100 mmol/L (98-108); Estimated Glomerular Filt Rate > 60; Glucose 112 mg/dL (70-99); Lactic Acid Reflex 1.6 mmol/L (0.4-2.0); Osmolality Calculated 285 mOsm/kg (285-295); Potassium 4.6 mmol/L (3.5-5.1); Sodium 137 mmol/L (136-145); Total Protein 5.9 g/dL (6.4-8.2); Troponin I 6.9 ng/L (0.00-60.4)
[2020-12-14 14:07] LABS: Band Neutrophils Percent 0 % (0-6); Basophils Percent Manual 0 % (0-1); Eosinophils Percent Manual 0 % (1-6); Lymphocytes Absolute Manual 1.15 K/mm3 (1.1-4.5); Lymphocytes Percent Manual 10 % (18-44); Monocytes Absolute Manual 1.26 K/mm3 (0.1-0.90); Monocytes Percent Manual 11 % (3-9); Neutrophils Absolute Manual 9.08 K/mm3 (1.3-6.7); Neutrophils Percent Manual 79 % (46-73); Platelet Estimate Adequate (Adequate)
[2020-12-14] MEDS: KETOROLAC (*BKC) 60 MG/2 ML VIAL IM (14:11)
--- NOTE | 2020-12-14 15:01 | ED.GENADULT ---
HPI - General Adult General Chief complaint: Syncope Stated complaint: passed out and fell, pain on R side and R arm Time Seen by Provider: 12/14/20 13:05 Source: patient and RN notes reviewed Mode of arrival: ambulatory Limitations: no limitations History of Present Illness complaint: pt stumbled and fell hitting the right forearm. denied chest pain, SOB or Onset (ago): hour(s) (4) Location: upper extremity Severity: mild Severity scale (1-10): 3 Pain Consistency: constant Relieving factors: none Exacerbating factors: none Associated symptoms: denies other symptoms Treatments prior to arrival: none Related Data Allergies Allergy/AdvReac Type Severity Reaction Status Date / Time azithromycin Allergy Mild Dizziness Verified 11/18/20 14:56 Sulfa (Sulfonamide Allergy Mild Rash Verified 11/18/20 14:56 Antibiotics) Review of Systems Review of Systems: All systems reviewed & are unremarkable except as noted in HPI and below Musculoskeletal: Comments: right forearm skin tear 20cm PMFSH Past Medical History Medical History Acute respiratory failure with hypoxemia Usfts-3-mamnricukjj deficiency Bilateral flank pain Bilateral lower extremity edema Community acquired pneumonia (~02/24/19) COPD (chronic obstructive pulmonary disease) Dietary counseling and surveillance (11/08/16) WINTER (dyspnea on exertion) Encounter for screening for malignant neoplasm of prostate Gastro-esophageal reflux disease without esophagitis Generalized abdominal pain History of coronary artery disease History of deep venous thrombosis or pulmonary embolus History of gastroesophageal reflux (GERD) History of gout Hypomagnesemia (~02/24/19) Leukocytosis Lower abdominal pain Orthostatic hypotension Personal history of colonic polyps Retinal artery branch occlusion, right eye Sepsis Sepsis with acute respiratory failure and septic shock Severe sepsis Wheezing Surgical History Surgical History History of cardiac catheterization History of tonsillectomy Family History Family History Other Unknown family medical history Social History Social History Smoking status: Former smoker Tobacco type: cigarettes Second hand tobacco smoke exposure: Yes Smoking end date: 02/14/79 Alcohol intake: never Drinks per week: 8 Substance use: never Gender identity (if verbalized by the patient): Male Spiritual care concerns: No Agree to blood products: Yes Exam Const: General: no acute distress and alert Nutritional Appearance: well nourished Orientation/consciousness: patient oriented x3 Limitations: no limitations HENMT: Head: normal to inspection Ears: external ears normal and TM's normal bilaterally General nose exam: Normal external nose present and Normal nares present Mouth: Yes moist mucous membranes Eyes: Conjunctivae: conjunctivae normal Pupils: Equal, round and reactive pupils present EOM: EOMs intact bilaterally Neck: Neck: normal visual inspection Chest: Chest palpation & inspection: normal inspection of the chest Resp: Effort & Inspection: normal respiratory effort Auscultation: clear to auscultation bilaterally Cardio: Rate: regular rate Rhythm: regular rhythm GI: GI Palp: Yes Soft to palpation and Yes Tenderness to palpation present (GI) Percussion: Yes normal to percussion Auscultation: normal bowel sounds : General: Yes bladder normal to palpation and Yes no CVA tenderness Testes: Testes normal Back/Spine/Pelvis: Back: no CVA tenderness Skin: General skin exam: normal color Neuro: General: patient oriented x3, moves all extremities, no meningeal signs, no focal motor deficits and CN's II-XI intact bilaterally Extrem: General: no pedal edema Other: 20 cm jagged right m
[2020-12-14 15:23] VITALS: BP 124/70; PULSE 66; RESP 18; TEMP 36.9; O2SAT 97
== END 2020-12-14 15:33 | disposition home or self-care (01) ==
PROVIDERS: Emergency Provider Emergency Medicine; PCP Internal Medicine
DX: R55 Syncope and collapse (principal); E86.0 Dehydration; S20.211A Contusion of right front wall of thorax, initial encounter; W19.XXXA Unspecified fall, initial encounter; J44.9 Chronic obstructive pulmonary disease, unspecified; I25.10 Atherosclerotic heart disease of native coronary artery without angina pectoris; K21.9 Gastro-esophageal reflux disease without esophagitis; Z87.891 Personal history of nicotine dependence
CPT/HCPCS: 36415; 70450; 71250; 80053; 83605; 84484; 85025; 93005; 96360; 96372; 99283; 99284; J1885; J7040

== ENCOUNTER 2020-12-24 10:48 | Outpatient (CLI) | payer MEDICARE, BC, SELFPAY ==
--- NOTE | 2020-12-25 22:14 | WPDHOLTEREM ---
Holter/Event Monitor Holter/Event Monitor Date of procedure: 12/25/20 Holter/Event Procedure: 24 Hr Holter Monitor Diagnosis: Syncope/collapse Indications: 75-year-old male with syncope/collapse Image/Tracing Quality: Good Finding: The patient was monitored for 24 hours. The underlying rhythm was sinus with a minimum heart rate of 65 beats per minute, average heart rate of 87 beats per minute and maximum heart rate of 119 beats per minute. There were 1190 PVCs noted, for a 1% burden of PVCs. There were 2 couplets noted as well. Twenty-eight APCs were seen. There is no atrial fibrillation, SVT, heart block or pauses. No symptoms recorded. . Conclusion: 1. Holter monitor is remarkable for infrequent PVCs with a 1% burden. Two ventricular couplets noted. 2. No symptoms recorded.
== END 2020-12-24 10:49 | disposition home or self-care (01) ==
LOC: ANHCARD 10:49
PROVIDERS: PCP Internal Medicine; Visit Provider Physician Assistant
DX: R55 Syncope and collapse (principal)
CPT/HCPCS: 93225; 93226

== ENCOUNTER 2021-01-05 10:22 | Outpatient (CLI) | payer MEDICARE, BC, SELFPAY ==
--- NOTE | ~2021-01-05 | US_ITS ---
EXAMINATION: US carotid duplex BI DATE: 01/05/2021 11:00 INDICATION: Syncope and collapse. TECHNIQUE: Grayscale, color Doppler, and pulsed Doppler images of the cervical carotid arteries were obtained. The degree of vessel stenosis is placed in one of the following categories: normal, <50%, 5 0-69%, >=70% but less than near-occlusion, near-occlusion, or total occlusion. Note that percent sten osis relative to normal distal artery lumen diameter is indirectly measured from velocity measurement s as described by Raymond, et al. Radiology 2003; 229:340-346. COMPARISON: Ultrasound 02/26/2019 FINDINGS: RIGHT: The right common carotid artery (CCA) peak systolic velocity (PSV) is 143 cm/s. The right internal ca rotid artery (ICA) PSV is 88 cm/s. The right ICA end-diastolic velocity (EDV) is 25 cm/s. The right I CA/CCA PSV ratio is 0.6. Grayscale and color Doppler images yield an estimate of <50% diameter reduct ion from plaque in the ICA. There is antegrade flow in the right vertebral artery. LEFT: The left CCA PSV is 123 cm/s. The left ICA PSV is 83 cm/s. The left ICA EDV is 26 cm/s. The left ICA/ CCA PSV ratio is 0.7. Grayscale and color Doppler images yield an estimate of <50% diameter reduction from plaque in the ICA. There is antegrade flow in the left vertebral artery. IMPRESSION: 1. <50% stenosis in the right internal carotid artery. 2. <50% stenosis in the left internal carotid artery. Reviewed, dictated and finalized at location B. 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
== END 2021-01-05 10:23 | disposition home or self-care (01) ==
LOC: ANHIMG 10:23
PROVIDERS: PCP Internal Medicine; Visit Provider Physician Assistant
DX: R55 Syncope and collapse (principal); I65.23 Occlusion and stenosis of bilateral carotid arteries
CPT/HCPCS: 93880

== ENCOUNTER 2021-02-13 12:52 | Outpatient (CLI) | payer MEDICARE, BC, SELFPAY ==
--- NOTE | 2021-02-16 15:50 | WPDSIXMINUTE ---
Six Minute Walk Procedure Procedure Performed Pulmonary Stress Test (6 min walk) Six Minute Walk This is a 6 minute walk test. The test was performed and interpreted in accordance with the 2014 ERS/ATS task force guidelines. Findings: The patient's resting room air oxygen saturation measured by pulse oximetry was 94% and heart rate was 93 bpm. Patient ambulated for 213 meters and oxygen saturation remained 90 to 92%. Heart rate at the end of the study was 115 bpm. The patient did not qualify for supplemental oxygen at rest or with ambulation. There are no prior studies for comparison.
--- NOTE | 2021-02-16 15:52 | WPDPFTINT ---
PFT Procedure Performed PFT Procedure Performed Spirometry with Pre/Post Bronchodilator Plethysmography (Lung Vol) Diffusing Cap (DLCO) Flow Vol Loop PFT Interpretation This is a pulmonary function test with pre and post-bronchodilator spirometry, plethysmography and diffusing capacity. The test was performed and results interpreted in accordance with the 2019 and 2005 ATS/ERS Task Force guidelines respectively using the Global Lung Function Initiative-2012 reference equations. Patient demonstrated good effort and cooperation. Reproducibility criteria were met. The quality of the pre bronchodilator spirometry maneuver was Grade B and post bronchodilator spirometry maneuver was Grade B. Findings: Spirometry: There is decreased maximal expiratory a airflow at all lung volumes with concave expiratory flow tracing. The contour the inspiratory flow tracing is normal. The pre bronchodilator FVC is 3.61 L, 83% predicted. The pre bronchodilator FEV1 is 1.18 L, 36% predicted. The FEV1: FVC ratio is 33%. The post bronchodilator FVC is 3.88 L, representing an 8% increase. The post bronchodilator FEV1 is 1.28 L, representing an 8% increase. The post bronchodilator FEV1: FVC ratio is 33%. Plethysmography: The total lung capacity is 7.83 L, 105% predicted. The functional residual capacity is 5.45 L, 136% predicted. The residual volume is 4.11 L, 154% predicted. Diffusing capacity: The absolute diffusion capacity is 10.8, 42% predicted. The diffusing capacity corrected for alveolar volume is 2.25, 61% predicted. Impression: There is a severe obstructive abnormality without significant improvement after inhaling a single dose of albuterol. The increase in residual volume is consistent with air trapping from an obstructive abnormality. The absolute diffusing capacity is moderately decreased and remains mildly decreased when corrected for alveolar volume. There are no prior studies for comparison
== END 2021-02-13 12:53 | disposition home or self-care (01) ==
LOC: ANHPFT 12:54
PROVIDERS: PCP Internal Medicine; Visit Provider Internal Medicine Pulmonary Disease
DX: J44.9 Chronic obstructive pulmonary disease, unspecified (principal); E88.01 Alpha-1-antitrypsin deficiency; R94.2 Abnormal results of pulmonary function studies
CPT/HCPCS: 94060; 94618; 94726; 94729

== ENCOUNTER 2021-03-23 13:24 | Outpatient (CLI) | payer MEDICARE, BC, SELFPAY ==
--- NOTE | ~2021-03-23 | XR_ITS ---
XR chest 2V DATE: 03/23/2021 14:04 INDICATION: COPD TECHNIQUE: PA and lateral views COMPARISON: 12/08/2020 portable AP chest FINDINGS: There is bilateral hyperinflation. No pulmonary infiltrate or consolidation, pulmonary vas cular congestion or pleural effusion. No hilar or mediastinal enlargement. Diffuse osteopenia. Degenerative spurring of the thoracic spine. IMPRESSION: COPD No active cardiopulmonary disease Reviewed, dictated and finalized at location A. REPAIRMAN
== END 2021-03-23 13:25 | disposition home or self-care (01) ==
LOC: CHSIMG 13:28
PROVIDERS: PCP Internal Medicine Pulmonary Disease; Visit Provider Internal Medicine Pulmonary Disease
DX: J44.9 Chronic obstructive pulmonary disease, unspecified (principal)
CPT/HCPCS: 71046

== ENCOUNTER 2021-08-14 07:08 | Outpatient (CLI) | payer MEDICARE, BC, SELFPAY ==
[2021-08-14 07:22] LABS: Basophils Absolute Auto 0.03 K/mm3 (0.00-0.10); Basophils Percent Auto 0.5 % (0.0-1.0); Eosinophils Absolute Auto 0.11 K/mm3 (0.02-0.50); Eosinophils Percent Auto 1.8 % (1.0-6.0); Hematocrit 45.7 % (37.0-46.0); Immature Granulocyte Absolute 0.03 K/mm3 (0.00-0.00); Immature Granulocyte Percent A 0.5 % (0.0-0.0); Lymphocytes Absolute Auto 2.58 K/mm3 (1.10-4.50); Lymphocytes Percent Auto 41.3 % (18.0-42.0); Mean Corpuscular HGB Conc 32.8 g/dL (32.0-36.0); Mean Corpuscular Hemoglobin 34.3 pg (27.0-31.0); Mean Corpuscular Volume 104.6 fL (78.0-102.0); Mean Platelet Volume 9.7 fl (8.7-11.0); Monocytes Absolute Auto 0.58 K/mm3 (0.10-0.90); Monocytes Percent Auto 9.3 % (2.0-11.0); Neutrophils Absolute Auto 2.9 K/mm3 (1.7-7.2); Neutrophils Percent Auto 46.6 % (50.0-70.0); Platelet Count Result 171 K/mm3 (150-420); Red Blood Count 4.37 M/mm3 (4.70-6.10); Red Cell Distribution Width 12.7 % (11.6-14.4); White Blood Count 6.2 K/mm3 (4.8-10.8)
[2021-08-14 08:04] LABS: Alanine Aminotransferase 28 U/L (16-63); Albumin Level 3.1 g/dL (3.4-5.0); Alkaline Phosphatase 86 U/L (46-116); Anion Gap 5 mmol/L (8-16); Aspartate Amino Transferase 27 U/L (15-37); Bilirubin,Total 0.8 mg/dL (0.00-1.00); Blood Urea Nitrogen 12 mg/dL (7-18); Calcium 8.6 mg/dL (8.5-10.1); Carbon Dioxide 30 mmol/L (21-32); Chloride 104 mmol/L (98-108); Cholesterol 180 mg/dL (0-200); Estimated Glomerular Filt Rate > 60; Folic Acid 7.1 ng/mL (8.6->20); Glucose 93 mg/dL (70-99); HDL Direct 58 mg/dL (40-60); LDL Cholesterol Calculated 105 mg/dL (<130); Osmolality Calculated 287 mOsm/kg (285-295); Potassium 4.1 mmol/L (3.5-5.1); Sodium 139 mmol/L (136-145); Thyroid Stimulating Hormone 2.19 uIU/mL (0.36-3.74); Total Protein 5.9 g/dL (6.4-8.2); Triglycerides 85 mg/dL (0-150); Uric Acid 3.4 mg/dL (3.5-7.2); Vitamin B12 437 pg/mL (193-986)
== END 2021-08-14 07:09 | disposition home or self-care (01) ==
LOC: CHSLAB 07:11
PROVIDERS: PCP Internal Medicine; Visit Provider Internal Medicine
DX: E78.00 Pure hypercholesterolemia, unspecified (principal); R53.83 Other fatigue; Z87.39 Personal history of other diseases of the musculoskeletal system and connective tissue; E80.6 Other disorders of bilirubin metabolism; D64.9 Anemia, unspecified
CPT/HCPCS: 36415; 80053; 80061; 82607; 82746; 84443; 84550; 85025

== ENCOUNTER 2021-09-27 13:13 | Emergency (ER) | payer MEDICARE, BC, SELFPAY ==
--- NOTE | ~2021-09-27 | XR_ITS ---
EXAMINATION: XR chest 1V portable 09/27/2021 14:40 INDICATION: Cough PROCEDURE: AP portable chest COMPARISON: Comparison to multiple prior studies sequentially, with oldest reviewed study dated 02/26. FINDINGS: The lungs are clear. The lungs are hyperinflated which is consistent with, but not diagnost ic of chronic obstructive pulmonary disease. The cardiomediastinal silhouette is within normal limits . There are no pleural effusions. There is no pneumothorax suspected. There is scarring at the rig ht lung base. IMPRESSION: 1: NO ACUTE CARDIOPULMONARY DISEASE. Reviewed, dictated and finalized at location A.
--- NOTE | 2021-09-27 13:42 | ECG_ITS ---
Measurements Intervals [place] Rate: 71 P: 81 [place]: 212 QRS: 62 QRSD: 90 T: 84 QT: 400 QTc: 437 Interpretive Statements SINUS RHYTHM WITH FIRST DEGREE AV BLOCK BASELINE ARTIFACT NONSPECIFIC ST ABNORMALITY BORDERLINE ECG COMPARED TO ECG 12/14/2020 13:17:31 FIRST DEGREE AV BLOCK NOW PRESENT Electronically Signed On 09-27-2021 14:20:14 CDT by Bhargav Díaz M.D.
[2021-09-27 14:26] VITALS: BP 132/67; PULSE 42; RESP 20; TEMP 36.8; O2SAT 95
[2021-09-27 14:57] LABS: Influenza A QL RT-PCR Negative (Negative); Influenza B QL RT-PCR Negative (Negative); SARS-CoV-2 RNA PCR Positive (Negative)
[2021-09-27 15:03] LABS: Strep Group A RT-PCR Negative (Negative)
--- NOTE | 2021-09-27 15:20 | ED.URI ---
HPI - URI/Sore Throat General Chief Complaint: Upper Respiratory Infection Stated Complaint: runny nose, cough, irritated eyes Time Seen by Provider: 09/27/21 13:17 Source: patient and RN notes reviewed Mode of arrival: ambulatory Limitations: no limitations History of Present Illness HPI Narrative: persistent coughing x several days. no documented fever, no wheezing MD elicited complaint: cough Pertinent past history: COPD Onset (ago): day(s) (3) Consistency: constant Pain scale (0-10): 0 Able to tolerate fluids by mouth: Yes Exacerbating factors: nothing Relieving factors: cough suppressant Associated symptoms: nasal congestion, sore throat, cough and shortness of breath (mild) Related Data Home Medications Medication Instructions Recorded Confirmed alpha-1 proteinase inhib.(hum) 1,000 mg IV WEEKLY 12/17/20 09/27/21 1,000 mg (+/-)/20 mL IV solution (Prolastin-C) ascorbic acid (vitamin C) 1,000 mg 1 g PO DAILY 01/15/21 09/27/21 tablet cholecalciferol (vitamin D3) 50 50 mcg PO DAILY 01/15/21 09/27/21 mcg (2,000 unit) capsule albuterol sulfate 90 mcg/actuation 1 puff inhalation Q4H PRN sob 07/30/21 09/27/21 aerosol inhaler apixaban 2.5 mg tablet (Eliquis) 2.5 mg PO BID 07/30/21 09/27/21 Allergies Allergy/AdvReac Type Severity Reaction Status Date / Time azithromycin Allergy Mild Dizziness Verified 09/27/21 14:35 Sulfa (Sulfonamide Allergy Mild Rash Verified 09/27/21 14:35 Antibiotics) Review of Systems Review of Systems: All systems reviewed & are unremarkable except as noted in HPI and below Constitutional: Constitutional: Reports no additional constitutional complaints Eyes: Eyes: Reports no additional eye complaints ENT: Reports system reviewed and no additional complaints, except as documented, Reports nasal congestion and Reports sore throat Cardiovascular: Cardiovascular: Reports no additional cardiovascular complaints Respiratory: Respiratory: Reports no additional respiratory complaints and Reports cough Gastrointestinal: Gastrointestinal: Reports no additional gastrointestinal complaints Musculoskeletal: Musculoskeletal: Reports no additional musculoskeletal complaints Integumentary/Breasts: Skin/Breast: Reports system reviewed and no additional complaints, except as docu Neurologic: Reports system reviewed and no additional complaints, except as documented Psychiatric: Psychiatric: Reports no additional psychiatric complaints Endocrine: Endocrine: Reports no additional endocrine complaints Hematologic/Lymphatic: Hematologic/Lymphatic: Reports no additional hematologic/lymphatic complaints Allergic/Immunologic: Allergic/Immunologic: Reports no additional allergic/immunologic complaints [facility] Past Medical History Medical History Acute respiratory failure with hypoxemia Gizyt-4-goqevckdaeb deficiency Bilateral flank pain Bilateral lower extremity edema Community acquired pneumonia (~02/24/19) COPD (chronic obstructive pulmonary disease) Dietary counseling and surveillance (11/08/16) WINTER (dyspnea on exertion) Encounter for screening for malignant neoplasm of prostate Gastro-esophageal reflux disease without esophagitis Generalized abdominal pain History of coronary artery disease History of deep venous thrombosis or pulmonary embolus History of gastroesophageal reflux (GERD) History of gout Hypomagnesemia (~02/24/19) Leukocytosis Lower abdominal pain Orthostatic hypotension Personal history of colonic polyps Retinal artery branch occlusion, right eye Sepsis Sepsis with acute respiratory failure and septic shock Severe sepsis Wheezing Surgical History Surgical History History of cardiac catheterization History of tonsillectomy Family History Family History Other Unknown family medical history
[2021-09-27] MEDS: guaiFENesin 12 HR 600 MG TABCR (15:39)
[2021-09-27 15:45] VITALS: BP 148/77; PULSE 50; RESP 20; TEMP 36.6; O2SAT 99
== END 2021-09-27 15:47 | disposition home or self-care (01) ==
PROVIDERS: Emergency Provider Emergency Medicine; PCP Internal Medicine
DX: U07.1 COVID-19 (principal); J40 Bronchitis, not specified as acute or chronic; J06.9 Acute upper respiratory infection, unspecified; E88.01 Alpha-1-antitrypsin deficiency; J44.9 Chronic obstructive pulmonary disease, unspecified; K21.9 Gastro-esophageal reflux disease without esophagitis; Z87.891 Personal history of nicotine dependence
CPT/HCPCS: 71045; 87502; 87651; 93005; 99283; A9270; C9803; U0003; U0005

== ENCOUNTER 2021-09-28 14:18 | Inpatient (IN) | payer MEDICARE, BC, SELFPAY ==
[2021-09-28] VITALS (15 sets, daily range): BP systolic 102–140; BP diastolic 42–72; PULSE 55–120; RESP 16–20; TEMP 36.4–37.7; O2SAT 88–98; BMI 26.2
--- NOTE | ~2021-09-28 | XR_ITS ---
XR chest 1V portable 09/28/2021 15:09 Indication: Dyspnea Procedure: AP portable chest Comparison: Comparison to multiple prior studies sequentially, with oldest reviewed study dated 08/2020. Findings: Bibasilar airspace disease. Heart size normal. No significant effusion, edema or pneumothor ax. Impression: 1: Bibasilar airspace disease, compatible with pneumonia. Consider aspiration in the appropriate clin ical setting. Reviewed, dictated and finalized at location B. Impression: 1: Bibasilar airspace disease, compatible with pneumonia. Consider aspiration i n the appropriate clinical setting.
--- NOTE | 2021-09-28 14:32 | ED.GENADULT ---
HPI - General Adult General Chief complaint: Shortness of Breath/Dyspnea Stated complaint: ambulance History of Present Illness HPI narrative: this is a 76-year-old male presenting ED for COVID-19 infection. Patient was seen here in the hospital yesterday and was diagnosed with bronchitis. He was positive for COVID at that time. He went home and continued to do worse. He has had increased confusion, and shortness of breath, and overall is just not doing well. His called EMS because he had several episodes of urinary incontinence. At this time the patient is A&O x1. He is complaining shortness of breath and productive cough. He denies chest pain, abdominal pain, nausea vomiting diarrhea, lower extremity edema. He has been vaccinated. Related Data Home Medications Medication Instructions Recorded Confirmed alpha-1 proteinase inhib.(hum) 1,000 mg IV WEEKLY 12/17/20 09/27/21 1,000 mg (+/-)/20 mL IV solution (Prolastin-C) ascorbic acid (vitamin C) 1,000 mg 1 g PO DAILY 01/15/21 09/27/21 tablet cholecalciferol (vitamin D3) 50 50 mcg PO DAILY 01/15/21 09/27/21 mcg (2,000 unit) capsule albuterol sulfate 90 mcg/actuation 1 puff inhalation Q4H PRN sob 07/30/21 09/27/21 aerosol inhaler apixaban 2.5 mg tablet (Eliquis) 2.5 mg PO BID 07/30/21 09/27/21 Allergies Allergy/AdvReac Type Severity Reaction Status Date / Time azithromycin Allergy Mild Dizziness Verified 09/27/21 14:35 Sulfa (Sulfonamide Allergy Mild Rash Verified 09/27/21 14:35 Antibiotics) Review of Systems Review of Systems: CONSTITUTIONAL: Denies night sweats. EYES: No eye pain ENT: Denies rhinorrhea CARDIOVASCULAR: Denies palpitations RESPIRATORY: Denies hemoptysis GASTROINTESTINAL: Denies hematemesis GENITOURINARY: Denies hematuria. SKIN: Denies rash MUSCULOSKELETAL: Denies myalgia. NEUROLOGIC: Denies weakness. PSYCHIATRIC: Denies delusions PMFSH Past Medical History Medical History Acute respiratory failure with hypoxemia Gwyeg-9-kwxvuwijruo deficiency Bilateral flank pain Bilateral lower extremity edema Community acquired pneumonia (~02/24/19) COPD (chronic obstructive pulmonary disease) Dietary counseling and surveillance (11/08/16) WINTER (dyspnea on exertion) Encounter for screening for malignant neoplasm of prostate Gastro-esophageal reflux disease without esophagitis Generalized abdominal pain History of coronary artery disease History of deep venous thrombosis or pulmonary embolus History of gastroesophageal reflux (GERD) History of gout Hypomagnesemia (~02/24/19) Leukocytosis Lower abdominal pain Orthostatic hypotension Personal history of colonic polyps Retinal artery branch occlusion, right eye Sepsis Sepsis with acute respiratory failure and septic shock Severe sepsis Wheezing Surgical History Surgical History History of cardiac catheterization History of tonsillectomy Family History Family History Other Unknown family medical history Social History Social History Smoking packs per day: 1 Smoking cigarettes per day: 20.0 Years smoked: 20 Smoking pack-years: 20.00 Smoking status: Former smoker Tobacco type: cigarettes Second hand tobacco smoke exposure: Yes Smoking end date: 02/14/79 Alcohol intake: never Alcohol use details: rarely Substance use: never Gender identity (if verbalized by the patient): Male Spiritual care concerns: No Agree to blood products: Yes Exam Narrative: APPEARANCE: No apparent distress. Patient appears uncomfortable. Head atraumatic. EYES: PERRLA/EOMI, NOSE: Normal no drainage NECK: Supple, Trachea midline RESPIRATORY: CTAB, No crackles rhonchi or wheezing. No increased work of breathing. CARDIOVASCULAR: S1S2 appre
[2021-09-28] MEDS: ACETAMINOPHEN 500 MG TABLET 1000 MG PO (14:41)
[2021-09-28 14:50] LABS: Basophils Absolute Auto 0.04 K/mm3 (0.00-0.10); Basophils Percent Auto 0.3 % (0.0-1.0); Hematocrit 48.3 % (37.0-46.0); Hemoglobin 16.2 g/dL (12.4-15.3); Immature Granulocyte Absolute 0.06 K/mm3 (0.00-0.00); Immature Granulocyte Percent A 0.4 % (0.0-0.0); Lymphocytes Absolute Auto 1.02 K/mm3 (1.10-4.50); Lymphocytes Percent Auto 7.2 % (18.0-42.0); Mean Corpuscular HGB Conc 33.5 g/dL (32.0-36.0); Mean Corpuscular Hemoglobin 34.5 pg (27.0-31.0); Mean Corpuscular Volume 102.8 fL (78.0-102.0); Mean Platelet Volume 9.9 fl (8.7-11.0); Monocytes Absolute Auto 0.84 K/mm3 (0.10-0.90); Monocytes Percent Auto 5.9 % (2.0-11.0); Neutrophils Absolute Auto 12.2 K/mm3 (1.7-7.2); Neutrophils Percent Auto 86.2 % (50.0-70.0); Platelet Count Result 150 K/mm3 (150-420); Red Cell Distribution Width 13.7 % (11.6-14.4); White Blood Count 14.2 K/mm3 (4.8-10.8)
--- NOTE | 2021-09-28 14:50 | ECG_ITS ---
Measurements Intervals [place] Rate: 89 P: 83 [place]: 198 QRS: 60 QRSD: 92 T: 79 QT: 355 QTc: 432 Interpretive Statements SINUS RHYTHM NONSPECIFIC ST ABNORMALITY BORDERLINE ECG COMPARED TO ECG 09/27/2021 13:45:18 NO SIGNIFICANT CHANGES Electronically Signed On 09-29-2021 8:41:43 CDT by Ruslan Berger M.D.
[2021-09-28] MEDS: SODIUM CHLORIDE 0.9% IV 1,000 ML 999 ML IV CONT (14:53)
[2021-09-28] MEDS: DEXAMETHASONE SOD PHOS INJ 4 MG/ML VIAL 12 MG IV PUSH (14:54)
[2021-09-28] MEDS: SODIUM CHLORIDE 0.9% IV 1,000 ML 150 ML IV CONT (14:55)
[2021-09-28 14:59] LABS: Anion Gap 9 mmol/L (8-16); Blood Urea Nitrogen 14 mg/dL (7-18); Calcium 8.7 mg/dL (8.5-10.1); Carbon Dioxide 26 mmol/L (21-32); Chloride 99 mmol/L (98-108); Estimated Glomerular Filt Rate 58; Glucose 103 mg/dL (70-99); Osmolality Calculated 278 mOsm/kg (285-295); Potassium 4.1 mmol/L (3.5-5.1); Sodium 134 mmol/L (136-145)
[2021-09-28 15:03] LABS: D Dimer 0.45 mg/L (0.19-0.50)
[2021-09-28 15:08] LABS: Lactic Acid Reflex 1.6 mmol/L (0.4-2.0)
[2021-09-28] MEDS: IPRATROPIUM BR 0.02% INH SOLN 0.5 MG/2.5 ML VIAL INHALATION (15:09)
[2021-09-28] MEDS: ALBUTEROL SULFATE NEB 2.5 MG/3 ML INH 5 MG INHALATION (15:10)
[2021-09-28 15:13] LABS: NT Pro B Type Natriuretic Pept 583 pg/mL (0-450)
[2021-09-28 15:18] LABS: Glucose Point of Care 95 mg/dl (65-105)
[2021-09-28 15:48] LABS: Alanine Aminotransferase 29 U/L (16-63); INR 1.1; Prothrombin Time 11.8 Seconds (9.50-12.10)
[2021-09-28 16:10] LABS: Add Urine Microscopic? NO; Appearance Urine Clear (Clear); Bilirubin Urine Negative (Negative); Blood Urine Negative (Negative); Color Urine Yellow (Yellow); Glucose Urine UA Negative (Negative); Ketones Urine Negative (Negative); Leukocyte Esterase Ur Negative LEU/UL (Negative); Nitrate Urine Negative (Negative); Protein Urine Negative (Negative); Specific Grav Ur 1.025 (1.010-1.020); Urobilinogen Urine 0.2 mg/dL (0.2-1.0); pH Urine 5.5 (5.0-8.0)
--- NOTE | 2021-09-28 17:54 | PC.NURSE ---
Patient arrived to unit from ER via stretcher, accompanied by ER staff. Patient admitted to room 210 and was able to transfer from stretcher to bed via pivot transfer with stand by assist. Patient orientated to room, isolation precautions and use of call light for assist. Patient has no valuables in his possession.
[2021-09-28] MEDS: REMDESIVIR 200 MG/NS 250 ML 200 MG/250 ML BAG 250 MG IVPB (18:00)
[2021-09-28] MEDS: BENZONATATE 100 MG CAPSULE 200 MG PO (18:02)
[2021-09-28] MEDS: TAMSULOSIN HCL 0.4 MG CAPSULE PO (18:02)
--- NOTE | 2021-09-28 18:29 | PC.NURSE ---
Awaiting clarification on administration of methylprednisone due to administration of dexamethasone in ER at 1454.
--- NOTE | 2021-09-28 19:05 | PC.NURSE ---
Addendum entered by Jessica Lewis RN 09/28/21 19:06: continued: due to history of CHF per PHOTOGRAPH TINTER. Original Note: IV fluids discontinued d
[2021-09-28] MEDS: MAGNESIUM OXIDE 400 MG TABLET PO (19:06)
[2021-09-28] MEDS: ACETAMINOPHEN 325 MG TABLET 650 MG PO (19:06)
--- NOTE | 2021-09-28 19:39 | PC.NURSE ---
Spoke with Michael Devi NP regarding neb treatments on a Covid patient. New order received for Brett WEBSTERI daily and to ana/sammy Doe.
[2021-09-28] MEDS: traZODone HCL 50 MG TABLET PO (20:16)
[2021-09-28] MEDS: guaiFENesin 12 HR 600 MG TABCR 1200 MG PO (20:16)
[2021-09-28] MEDS: APIXABAN 2.5 MG TABLET PO (20:17)
[2021-09-28] MEDS: DONEPEZIL HCL 5 MG TABLET 10 MG PO (20:17)
[2021-09-28] MEDS: ALBUTEROL SULFATE (*SP) INHALER 2 PUFF INHALATION (23:01)
[2021-09-28] MEDS: methylPREDNISolone SOD SUCC 40 MG VIAL IV PUSH (23:57)
[2021-09-29] VITALS (9 sets, daily range): BP systolic 88–132; BP diastolic 55–68; PULSE 49–94; RESP 16–20; TEMP 36.2–36.7; O2SAT 92–96
[2021-09-29] MEDS: ALBUTEROL SULFATE (*SP) INHALER 2 PUFF INHALATION ×4 (05:23→21:19)
[2021-09-29 05:25] LABS: Hematocrit 45.6 % (37.0-46.0); Hemoglobin 15.2 g/dL (12.4-15.3); Immature Platelet Fraction Pct 2.6 % (1.0-7.0); Mean Corpuscular HGB Conc 33.3 g/dL (32.0-36.0); Mean Corpuscular Hemoglobin 34.3 pg (27.0-31.0); Mean Corpuscular Volume 102.9 fL (78.0-102.0); Mean Platelet Volume 9.9 fl (8.7-11.0); Platelet Count Result 127 K/mm3 (150-420); Red Blood Count 4.43 M/mm3 (4.70-6.10); Red Cell Distribution Width 13.4 % (11.6-14.4); White Blood Count 15.6 K/mm3 (4.8-10.8)
[2021-09-29] MEDS: methylPREDNISolone SOD SUCC 40 MG VIAL IV PUSH ×3 (05:30→21:05)
[2021-09-29 05:35] LABS: INR 1.1
[2021-09-29 05:40] LABS: Alanine Aminotransferase 23 U/L (16-63); Albumin Level 2.5 g/dL (3.4-5.0); Alkaline Phosphatase 73 U/L (46-116); Anion Gap 7 mmol/L (8-16); Aspartate Amino Transferase 33 U/L (15-37); Bilirubin,Total 0.7 mg/dL (0.00-1.00); Blood Urea Nitrogen 15 mg/dL (7-18); Calcium 8.4 mg/dL (8.5-10.1); Carbon Dioxide 26 mmol/L (21-32); Chloride 104 mmol/L (98-108); Estimated CRCL calculation 64 ml/min; Estimated Glomerular Filt Rate > 60; Glucose 133 mg/dL (70-99); Osmolality Calculated 286 mOsm/kg (285-295); Potassium 4.1 mmol/L (3.5-5.1); Sodium 137 mmol/L (136-145); Total Protein 5.2 g/dL (6.4-8.2)
--- NOTE | 2021-09-29 07:40 | PC.NURSE ---
pt noted to have tremors to bilateral arms, states he believes he may have parkinson's. Denies and c/os at this time, SPO2 at 95% on room air at rest, no distress noted.
[2021-09-29] MEDS: CHOLECALCIFEROL 1,000 UNITS TABLET 2000 UNITS PO (08:11)
[2021-09-29] MEDS: POTASSIUM CHLORIDE 20 MEQ TABLET 40 MEQ PO (08:11)
[2021-09-29] MEDS: CALCIUM CARBONATE (TUMS) 500 MG (200 MG ELEMENTAL) PO (08:11)
[2021-09-29] MEDS: allopurinoL 300 MG TABLET PO (08:12)
[2021-09-29] MEDS: MAGNESIUM OXIDE 400 MG TABLET PO ×2 (08:12→17:01)
[2021-09-29] MEDS: guaiFENesin 12 HR 600 MG TABCR 1200 MG PO ×2 (08:12→21:02)
[2021-09-29] MEDS: BENZONATATE 100 MG CAPSULE 200 MG PO ×3 (08:12→17:01)
[2021-09-29] MEDS: FUROSEMIDE 40 MG TABLET PO (08:12)
[2021-09-29] MEDS: UMECLIDINIUM BROMIDE 62.5 MCG ELLIPTA 1 PUFF INHALATION (08:13)
[2021-09-29] MEDS: ASCORBIC ACID 500 MG TABLET 1000 MG PO (08:13)
[2021-09-29] MEDS: APIXABAN 2.5 MG TABLET PO ×2 (08:13→21:02)
--- NOTE | 2021-09-29 11:20 | PM.IMHP ---
H&P: HPI History of Present Illness Date/Time: 09/29/21 11:20 Chief Complaint: Shortness of breath and dyspnea Narrative: This is a 76-year-old male who presented to emergency department with complaints of shortness of breath and dyspnea. 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 Presented to our emergency department on 09/27/2021 and diagnosed with COVID at that time. Patient was sent home with amoxicillin Mucinex and albuterol. He presented again yesterday to our emergency department for worsening shortness of breath, generalized weakness and lethargicness. According to the patient only thing he remembers is waking up in the morning for exam self-professed. He notes that his called EMS because he urinated on himself and appeared lethargic. Patient's vital signs 122/68, 76, 20, 97.2, 95% on room air, WBCs 14.2, hemoglobin 16.2, hematocrit 48.3, platelets 115, D-dimer 0.45, sodium 134, potassium 4.1, BUN 14, creatinine glucose 103, lactic acid 1.3, total bilirubin 0.7, AST 33, ALT 23, BNP 583, chest x-ray indicates COVID-pneumonia EKG sinus rhythm with a heart rate of 89 patient be admitted for COVID-pneumonia. Patient notes that his breathing has improved he does continue to have a cough with production which is chronic for him. Patient also notes that he has been experiencing tremors for quite some time now and is asking for referral to a neurologist. On discharge we will give him a referral to Dr. Rios a neurologist for follow-up. Patient notes that he has been vaccinated. He has not been exposed to any COVID-positive person. Patient notes that he wears a mask at all times. The patient denies CP, palpitation, extremity numbness, lightheadedness, dizziness, constipation, diarrhea, chills, or fever. Review of Systems Review of Systems: A 14 organ system Review of Systems was performed and pertinent positives included in the HPI, otherwise remaining ROS is negative. [facility] Past Medical History Medical History Acute respiratory failure with hypoxemia Fxhxn-4-aisozfzpdnl deficiency Bilateral flank pain Bilateral lower extremity edema Community acquired pneumonia (~02/24/19) COPD (chronic obstructive pulmonary disease) Dietary counseling and surveillance (11/08/16) WINTER (dyspnea on exertion) Encounter for screening for malignant neoplasm of prostate Gastro-esophageal reflux disease without esophagitis Generalized abdominal pain History of coronary artery disease History of deep venous thrombosis or pulmonary embolus History of gastroesophageal reflux (GERD) History of gout Hypomagnesemia (~02/24/19) Leukocytosis Lower abdominal pain Orthostatic hypotension Personal history of colonic polyps Retinal artery branch occlusion, right eye Sepsis Sepsis with acute respiratory failure and septic shock Severe sepsis Wheezing Surgical History Surgical History History of cardiac catheterization History of tonsillectomy Family History Family History Other Unknown family medical history Social History Social History Smoking packs per day: 1 Smoking cigarettes per day: 20.0 Years smoked: 20 Smoking pack-years: 20.00 Smoking status: Former smoker Tobacco type: cigarettes Second hand tobacco smoke exposure: Yes Smoking end date: 02/14/79 Alcohol intake: never Alcohol use details: rarely Substance use: never Gender identity (if verbalized by the patient): Male Spiritual care concerns: No Agree to blood products: Yes Meds Home Medications and Allergies Home Medications Medication Instructions Recorded
[2021-09-29] MEDS: REMDESIVIR 100 MG/NS 250 ML 100 MG/250 ML BAG 250 MG IVPB (15:16)
[2021-09-29] MEDS: TAMSULOSIN HCL 0.4 MG CAPSULE PO (17:01)
[2021-09-29] MEDS: DONEPEZIL HCL 5 MG TABLET 10 MG PO (21:02)
[2021-09-29] MEDS: guaiFENesin/CODEINE 100/10 MG 5 ML SYRUP 10 ML PO (21:05)
[2021-09-30] VITALS (7 sets, daily range): BP systolic 118–124; BP diastolic 61–73; PULSE 66–110; RESP 16–20; TEMP 36.2–36.4; O2SAT 88–95
[2021-09-30 05:05] LABS: Hemoglobin 14.6 g/dL (12.4-15.3); Mean Corpuscular HGB Conc 33.2 g/dL (32.0-36.0); Mean Corpuscular Hemoglobin 34.3 pg (27.0-31.0); Mean Corpuscular Volume 103.3 fL (78.0-102.0); Mean Platelet Volume 10.6 fl (8.7-11.0); Platelet Count Result 146 K/mm3 (150-420); Red Blood Count 4.26 M/mm3 (4.70-6.10); Red Cell Distribution Width 13.6 % (11.6-14.4); White Blood Count 17.3 K/mm3 (4.8-10.8)
[2021-09-30 05:18] LABS: INR 1.1; Prothrombin Time 12.4 Seconds (9.50-12.10)
[2021-09-30 05:23] LABS: Alanine Aminotransferase 11 U/L (16-63); Albumin Level 2.5 g/dL (3.4-5.0); Alkaline Phosphatase 74 U/L (46-116); Anion Gap 7 mmol/L (8-16); Aspartate Amino Transferase 47 U/L (15-37); Bilirubin,Total 0.4 mg/dL (0.00-1.00); Blood Urea Nitrogen 26 mg/dL (7-18); Calcium 8.6 mg/dL (8.5-10.1); Carbon Dioxide 26 mmol/L (21-32); Chloride 104 mmol/L (98-108); Estimated CRCL calculation 62 ml/min; Estimated Glomerular Filt Rate > 60; Glucose 121 mg/dL (70-99); Osmolality Calculated 289 mOsm/kg (285-295); Potassium 4.4 mmol/L (3.5-5.1); Sodium 137 mmol/L (136-145); Total Protein 5.5 g/dL (6.4-8.2)
--- NOTE | 2021-09-30 06:05 | PC.NURSE ---
Pt given solumedrol 40 mg IVP as ordered.
[2021-09-30] MEDS: methylPREDNISolone SOD SUCC 40 MG VIAL IV PUSH (06:06)
[2021-09-30] MEDS: ALBUTEROL SULFATE (*SP) INHALER 2 PUFF INHALATION (06:06)
[2021-09-30] MEDS: POTASSIUM CHLORIDE 20 MEQ TABLET 40 MEQ PO (08:28)
[2021-09-30] MEDS: CALCIUM CARBONATE (TUMS) 500 MG (200 MG ELEMENTAL) PO (08:28)
[2021-09-30] MEDS: APIXABAN 2.5 MG TABLET PO (08:29)
[2021-09-30] MEDS: BENZONATATE 100 MG CAPSULE 200 MG PO (08:29)
[2021-09-30] MEDS: ASCORBIC ACID 500 MG TABLET 1000 MG PO (08:29)
[2021-09-30] MEDS: allopurinoL 300 MG TABLET PO (08:29)
[2021-09-30] MEDS: MAGNESIUM OXIDE 400 MG TABLET PO (08:30)
[2021-09-30] MEDS: guaiFENesin 12 HR 600 MG TABCR 1200 MG PO (08:30)
[2021-09-30] MEDS: CHOLECALCIFEROL 1,000 UNITS TABLET 2000 UNITS PO (08:30)
[2021-09-30] MEDS: FUROSEMIDE 40 MG TABLET PO (08:30)
[2021-09-30] MEDS: UMECLIDINIUM BROMIDE 62.5 MCG ELLIPTA 1 PUFF INHALATION (08:31)
--- NOTE | 2021-09-30 09:31 | HOMEO2EVAL ---
Evaluation was performed at [facility] Home Oxygen Evaluation RC: Home Oxygen (O2) Evaluation Start: 09/30/21 08:51 Freq: ONCE Status: Active Protocol: RPE Activity Type Activity Date Activity User E-sign Co-sign Detail Recorded Client Recorded Date Recorded By Document 09/30/21 09:15 JANKI [id number] 09/30/21 09:31 SJB Document 09/30/21 09:19 SJB [id number] 09/30/21 09:31 SJB Document 09/30/21 09:22 SJB [id number] 09/30/21 09:31 SJB 09/30/21 09/30/21 09/30/21 09:15 09:19 09:22 Home O2 Evaluation Test Phase Resting Exercise Exercise Oxygen Delivery Room Air Nasal Cannula Pulse Oximetry (90-100 %) 92 88 L 91 Pulse Rate (60-100 beats/min) 100 110 H 110 H Activity Tolerance Good Good Rating of Perceived Dyspnea (PD) +1 Mild, +1 Mild, Noticeable to Noticeable to the Participant the Participant but Not to an but Not to an Observer Observer Rate of Perceived Exertion (PE) 11 Fairly light 12 Ambulation Distance (feet) 154 132 Ambulation Distance (meters) 46.93 40.23 Home Oxygen Evaluation Comments Will begin walk After walking On 1 lpm with patient approx. 154 ft patient walked in room due to on room air, another 132 ft COVID on room patient's Sp02 with Sp02 air. went down to 88 staying at 91%. %. Will start Juan Miguel. well. on 1 lpm. Educated on PLB . Treatment Charges O2 Evaluation - Inpatient
--- NOTE | 2021-09-30 10:22 | PM.DS ---
DS: Admitting Diagnosis Discharge Date 09/30/2021 Admitting Diagnosis COVID, [place], Pnemonia DS: Discharge Diagnosis Discharge Diagnosis (1) Pneumonia due to COVID-19 virus: Code(s): U07.1 - COVID-19; J12.82 - Pneumonia due to coronavirus disease 2018 Status: Acute Assessment and Plan: Positive for COVID G indicated pneumonia Continue albuterol along with Umeclidinium bromide Continue oxygen as needed needs oxygen at home ordered Continue Solu-Medrol will go home on Medrol dose Continue Rocephin will go home on Azithromycin Continue remdesivir discontinue Blood culture pending (2) Respiratory failure: Qualifiers: Respiratory failure complication: hypoxia Code(s): J96.90 - Respiratory failure, unspecified, unspecified whether with hypoxia or hypercapnia Status: Acute Assessment and Plan: Secondary to COVID-pneumonia Underlying cause Needs oxygen at home ordered (3) Generalized weakness: Code(s): R53.1 - Weakness Status: Acute Assessment and Plan: Feeling better wanting to go home he will go home with home health (4) Acute metabolic encephalopathy: Code(s): G93.41 - Metabolic encephalopathy Status: Acute Assessment and Plan: Resolved Secondary to COVID-pneumonia (5) Awrpo-4-ycihoaasyyg deficiency: Code(s): E88.01 - Qlvwq-8-yughfwozrqu deficiency Status: Acute Assessment and Plan: Due to receive prolastin today (6) COPD (chronic obstructive pulmonary disease): Code(s): J44.9 - Chronic obstructive pulmonary disease, unspecified Status: Chronic Assessment and Plan: copd exacerbation Worsened by COVID-pneumonia Continue albuterol along with Umeclidinium bromide Continue oxygen as needed will need oxygen at home ordered Continue Solu-Medrol will go home on medrol dose pack Continue Rocephin will go home on Azithromycin Continue remdesivir discontinued (7) Dementia: Qualifiers: Dementia behavioral disturbance: without behavioral disturbance Dementia type: unspecified type Qualified Code(s): F03.90 - Unspecified dementia without behavioral disturbance Code(s): F03.90 - Unspecified dementia without behavioral disturbance Status: Acute Assessment and Plan: Continue Aricept DS: Summary Hospital Course Reason for hospitalization: Pneumonia, covid Hospital Course: This is a 76 year old male that was admitted into the hospital with covid Pneumonia and treated with antiviral and steroids. Patient was requiring oxgyen and is requiring oxygen at home. Patient very anxious about going home as he is feeling a lot better and states he is able to eat and drink now and he wants to go home today. Patient has a past medical history of COPD and was requiring oxgen and was recently discontinued and sent back . Mr. Watson will go home on antiviral oral with steroid and he has nebulizer at home that he will take . Patient labs currently are potassium 4.4, sodium 137, BUN 26, creatinine 0.98, WBC 17.3 he has remained a febrile. Patient will go home with home health at this time. Time Spent with Patient Time attestation: Total time spent providing and/or coordinating discharge services: Exam Narrative: GENERAL: This is a well-nourished, well-developed patient, in no apparent distress. HEAD: normocephalic, atraumatic. EYES: PERRL. Sclera clear/white. Vision is grossly intact. EARS: External ears normal, auditory canals clear and without drainage, TMs normal without perforation. Hearing grossly intact. NOSE: External nose normal with no obvious nasal discharge, nares without redness, no rhinorrhea. THROAT: Mucous membranes moist, posterior pharynx clear. NECK: Neck supple, non-tender without lymphadenopathy, masses or thyromegaly. CARDIOVASCULAR: Regular rate and rhythm without murmurs, gallops, or rubs. RESPIRATORY: Diminished breath sounds GASTR
--- NOTE | 2021-09-30 11:18 | PC.NURSE ---
Discharge instructions reviewed. Reminder to berry picker new medications, to call and make follow up appointment with Dr. Silva and make appointment with Dr. Marques.
--- NOTE | 2021-09-30 11:39 | PC.NURSE ---
Patient transported by wheelchair to private vehicle, O2 tank sent with patient
--- NOTE | 2021-09-30 11:47 | PC.NURSE ---
Medication faxed and called into [facility] in [facility]
--- NOTE | 2021-10-05 11:05 | PC.NURSE ---
Spouse states they received and understood the discharge instructions. Spouse had no other comments.
== END 2021-09-30 11:30 | disposition home health service (06) | DRG 177 ==
LOC: CHSED 15:09 → CHS2ND 15:47
PROVIDERS: Nurse Practitioner; Admitting Provider Internal Medicine; Emergency Provider Emergency Medicine; PCP Internal Medicine; Visit Provider Internal Medicine
DX: U07.1 COVID-19 (principal); J96.91 Respiratory failure, unspecified with hypoxia; G93.41 Metabolic encephalopathy; J12.82 Pneumonia due to coronavirus disease 2019; J96.90 Respiratory failure, unspecified, unspecified whether with hypoxia or hypercapnia; J44.9 Chronic obstructive pulmonary disease, unspecified; H34.231 Retinal artery branch occlusion, right eye; I25.10 Atherosclerotic heart disease of native coronary artery without angina pectoris; E88.01 Alpha-1-antitrypsin deficiency; K21.9 Gastro-esophageal reflux disease without esophagitis; F03.90 Unspecified dementia, unspecified severity, without behavioral disturbance, psychotic disturbance, mood disturbance, and anxiety; Z86.010 Personal history of colon polyps; Z86.718 Personal history of other venous thrombosis and embolism; Z79.01 Long term (current) use of anticoagulants; Z87.891 Personal history of nicotine dependence
CPT/HCPCS: 36415; 71045; 80048; 80053; 81003; 82948; 83605; 83880; 84460; 85025; 85027; 85055; 85380; 85610; 87040; 93005; 94618; 94640; 96374; 99285; A9270; J0248; J0256; J0696; J1100; J2920; J7030

== ENCOUNTER 2021-10-17 16:47 | Emergency (ER) | payer MEDICARE, BC, SELFPAY ==
--- NOTE | ~2021-10-17 | CT_ITS ---
EXAMINATION: CT diagnostic chest wo con DATE: 10/17/2021 19:14 INDICATION: bilateral chest pain. FALL. POSTERIOR/LOWER RIB PAIN. . TECHNIQUE: Computed tomography (CT) of the chest was performed with 100 mL Omnipaque-350 intravenous contrast. Automated exposure control and iterative reconstruction technique were employed. The dose-l ength product was 617.86 mGy-cm. COMPARISON: None FINDINGS: CHEST: No thoracic aortic injury. No mediastinal hematoma. No pericardial effusion. No acute lung injury. No pleural effusion or pneumothorax. Emphysematous and senescent changes in the lungs bilateral lower lung scarring/atelectasis calcified subcarinal lymph node mild coronary artery calcification. Mild arch ectasia and calcification. MUSCULOSKELETAL: No acute fracture. Multiple old rib fractures. No fracture or traumatic malalignment of the thoracic spine. Chronic superior and inferior endplate d eformity at T2. IMPRESSION: No acute process detected in the chest. Reviewed, dictated and finalized at location K.
--- NOTE | ~2021-10-17 | CT_ITS ---
EXAMINATION: CT brain wo con DATE: 10/17/2021 19:13 INDICATION: FALL. SYNCOPE. . TECHNIQUE: Computed tomography (CT) of the head was performed without intravenous contrast. The mA wa s adjusted according to patient size. Iterative reconstruction technique was employed. The dose-lengt h product was 681.00 mGy-cm. COMPARISON: 12/14/2020 FINDINGS: No acute intracranial hemorrhage or extra-axial fluid collection. No hydrocephalus, mass, or herniation. No acute ischemic infarct. Unremarkable dural venous sinus attenuation. No acute osseous abnormality. The aerated spaces are clear. Moderate atrophy and chronic white matter change. Atherosclerotic intracranial calcification. Bilater al lens replacements. IMPRESSION: No acute intracranial process. Reviewed, dictated and finalized at location K.
--- NOTE | ~2021-10-17 | CT_ITS ---
EXAMINATION: CT cervical spine wo con DATE: 10/17/2021 19:13 INDICATION: FALL. SYNCOPE. NECK PAIN. TECHNIQUE: Computed tomography (CT) of the cervical spine was performed without intravenous contrast. Automated exposure control and iterative reconstruction technique were employed. The dose-length pro duct was 429.91 mGy-cm. COMPARISON: None FINDINGS: Vertebral Body Alignment: Intact. Craniocervical and atlantoaxial alignment: Moderate degenerative change. Alignment intact. Osseous structures/fracture: No evidence of a lytic or blastic process in the visualized spine. No e vidence of acute fracture. Cervical soft tissues: The paraspinal soft tissues planes are maintained. Degenerative changes: Degenerative changes, without severe neural foraminal or central canal narrowin g. IMPRESSION: No acute fracture or traumatic malalignment in the cervical spine. Reviewed, dictated and finalized at location K.
[2021-10-17 17:04] VITALS: BP 117/67; PULSE 79; RESP 20; TEMP 36.4; O2SAT 97
--- NOTE | 2021-10-17 17:11 | ED.SYNCOPE ---
HPI - Syncope General Chief Complaint: Fall Stated Complaint: fell down/passed out/injured back and ribs Time Seen by Provider: 10/17/21 17:10 Related Data Home Medications Medication Instructions Recorded Confirmed alpha-1 proteinase inhib.(hum) 6,000 mg IV WEEKLY 12/17/20 10/07/21 1,000 mg (+/-)/20 mL IV solution (Prolastin-C) ascorbic acid (vitamin C) 1,000 mg 1 g PO DAILY 01/15/21 10/07/21 tablet cholecalciferol (vitamin D3) 50 50 mcg PO DAILY 01/15/21 10/07/21 mcg (2,000 unit) capsule albuterol sulfate 90 mcg/actuation 1 puff inhalation Q4H PRN sob 07/30/21 10/07/21 aerosol inhaler apixaban 2.5 mg tablet (Eliquis) 2.5 mg PO BID 07/30/21 10/07/21 Allergies Allergy/AdvReac Type Severity Reaction Status Date / Time azithromycin Allergy Mild Dizziness Verified 10/07/21 13:16 Sulfa (Sulfonamide Allergy Mild Rash Verified 10/07/21 13:16 Antibiotics) [facility] Past Medical History Medical History Acute respiratory failure with hypoxemia Bvnls-1-ltnahvudgnv deficiency Bilateral flank pain Bilateral lower extremity edema Community acquired pneumonia (~02/24/19) COPD (chronic obstructive pulmonary disease) Dietary counseling and surveillance (11/08/16) WINTER (dyspnea on exertion) Encounter for screening for malignant neoplasm of prostate Gastro-esophageal reflux disease without esophagitis Generalized abdominal pain History of coronary artery disease History of deep venous thrombosis or pulmonary embolus History of gastroesophageal reflux (GERD) History of gout Hypomagnesemia (~02/24/19) Leukocytosis Lower abdominal pain Orthostatic hypotension Personal history of colonic polyps Retinal artery branch occlusion, right eye Sepsis Sepsis with acute respiratory failure and septic shock Severe sepsis Wheezing Surgical History Surgical History History of cardiac catheterization History of tonsillectomy Family History Family History Other Unknown family medical history Social History Social History (Reviewed 10/07/21 @ 13:16 by BARBER Maza Smoking packs per day: 1 Smoking cigarettes per day: 20.0 Years smoked: 20 Smoking pack-years: 20.00 Smoking status: Former smoker Tobacco type: cigarettes Second hand tobacco smoke exposure: Yes Smoking end date: 02/14/79 Alcohol intake: never Alcohol use details: rarely Substance use: never Gender identity (if verbalized by the patient): Male Spiritual care concerns: No Agree to blood products: Yes Discharge Plan Discharge Prescriptions: No Action Mucinex DM 30-600 mg tablet extended release 12 hr 1 tablet PO Q12H Qty: 20 0RF albuterol sulfate 90 mcg/actuation HFA aerosol inhaler 2 puff inhalation QID Qty: 8.5 0RF calcium carbonate 500 mg calcium (1,250 mg) Tablet,Chewable 200 mg PO DAILY@0800 Qty: 30 0RF Prolastin-C 1,000 mg (+/-)/20 mL solution 6,000 mg IV WEEKLY Rx Instructions: Dose may be +/- 10% depending on vial potency. Patient receives on Tuesdays. cholecalciferol (vitamin D3) 50 mcg (2,000 unit) capsule 50 mcg PO DAILY ascorbic acid (vitamin C) 1,000 mg tablet 1 g PO DAILY benzonatate 100 mg capsule 200 mg PO TID Qty: 20 0RF fluticasone propionate 50 mcg/actuation spray,suspension 2 spray intranasal DAILY PRN (Reason: nasal congestion) Qty: 15.8 4RF Rx Instructions: administer into each nostril donepezil 10 mg tablet 10 mg PO QHS Qty: 90 1RF Eliquis 2.5 mg tablet 2.5 mg PO BID albuterol sulfate 90 mcg/actuation HFA aerosol inhaler 1 puff inhalation Q4H PRN (Reason: sob) potassium chloride [K-Tab] 10 mEq tablet extended release 40 meq PO DAILY@0800 Qty: 120 5RF tamsulosin 0.4 mg capsule 0.4 mg PO QPM Qty: 90 1RF (DME) inhalational spacing device
--- NOTE | 2021-10-17 17:13 | ED.FALL ---
HPI - Fall General Chief Complaint: Fall Stated Complaint: fell down/passed out/injured back and ribs Time Seen by Provider: 10/17/21 17:10 Source: patient Mode of arrival: ambulatory History of Present Illness HPI Narrative: 76-year-old male with a history of dementia, COPD/ L4-1 antitrypsin deficiency, dyslipidemia, cardiomyopathy, syncope, essential tremor, diagnosed with COVID last month presents to the ER with -- loss of consciousness after a fall or he lost consciousness and subsequently fell. Patient fell after he he stood up from a lying position. -- Bilateral lower chest wall pain made worse by deep breathing. -- no focal neuro deficits. MD complaint: fall Onset (ago): hour(s) ( Happened 2-1/2 hours ago) Fall from: standing Fall witnessed: no Place fall occurred: home Loss of consciousness: yes Prolonged down time: unclear Symptoms prior to fall: none Location of injury: chest Quality: aching Associated symptoms (after fall): denies Related Data Home Medications Medication Instructions Recorded Confirmed alpha-1 proteinase inhib.(hum) 6,000 mg IV WEEKLY 12/17/20 10/17/21 1,000 mg (+/-)/20 mL IV solution (Prolastin-C) ascorbic acid (vitamin C) 1,000 mg 1 g PO DAILY 01/15/21 10/17/21 tablet cholecalciferol (vitamin D3) 50 50 mcg PO DAILY 01/15/21 10/17/21 mcg (2,000 unit) capsule albuterol sulfate 90 mcg/actuation 1 puff inhalation Q4H PRN sob 07/30/21 10/17/21 aerosol inhaler apixaban 2.5 mg tablet (Eliquis) 2.5 mg PO BID 07/30/21 10/17/21 Allergies Allergy/AdvReac Type Severity Reaction Status Date / Time azithromycin Allergy Mild Dizziness Verified 10/17/21 17:13 Sulfa (Sulfonamide Allergy Mild Rash Verified 10/17/21 17:13 Antibiotics) Review of Systems Review of Systems: All systems reviewed & are unremarkable except as noted in HPI and below Constitutional: Constitutional: Reports as per HPI and Reports no additional constitutional complaints Eyes: Eyes: Reports as per HPI and Reports no additional eye complaints ENT: Reports system reviewed and no additional complaints, except as documented and Reports as per HPI Cardiovascular: Cardiovascular: Reports as per HPI and Reports no additional cardiovascular complaints Respiratory: Respiratory: Reports as per HPI and Reports no additional respiratory complaints Comments: Has bilateral lower chest wall pain Gastrointestinal: Gastrointestinal: Reports as per HPI and Reports no additional gastrointestinal complaints Genitourinary: Genitourinary: Reports no additional male genitourinary complaints and Reports as per HPI Musculoskeletal: Musculoskeletal: Reports no additional musculoskeletal complaints and Reports as per HPI Integumentary/Breasts: Skin/Breast: Reports system reviewed and no additional complaints, except as docu and Reports as per HPI Comments: healed laceration over the left forearm multiple bruises Neurologic: Reports system reviewed and no additional complaints, except as documented and Reports as per HPI Psychiatric: Psychiatric: Reports no additional psychiatric complaints and Reports as per HPI Endocrine: Endocrine: Reports no additional endocrine complaints Hematologic/Lymphatic: Hematologic/Lymphatic: Reports no additional hematologic/lymphatic complaints Allergic/Immunologic: Allergic/Immunologic: Reports no additional allergic/immunologic complaints [facility] Past Medical History Medical History Acute respiratory failure with hypoxemia Tozni-7-vgjrjruormo deficiency Bilateral flank pain Bilateral lower extremity edema Community acquired pneumonia (~02/24/19) COPD (chronic obstructive pulmonary disease) Dietary counseling and surveillance (11/08/16) WINTER (dyspnea on exertion) Encounter for screening for malignant neoplasm of prostate Gastro-esophageal reflux disease without esophagitis Generalized abdominal pain History of coronary artery
--- NOTE | 2021-10-17 17:39 | ECG_ITS ---
Measurements Intervals [place] Rate: 73 P: 83 NV: 207 QRS: 57 QRSD: 89 T: 78 QT: 386 QTc: 427 Interpretive Statements SINUS RHYTHM WITH FIRST DEGREE AV BLOCK BORDERLINE ECG COMPARED TO ECG 09/28/2021 14:50:36 NO SIGNIFICANT CHANGES Electronically Signed On 10-17-2021 18:48:41 CDT by Marito Hernandez D.O.
[2021-10-17 18:06] LABS: Basophils Absolute Auto 0.04 K/mm3 (0.00-0.10); Basophils Percent Auto 0.4 % (0.0-1.0); Eosinophils Absolute Auto 0.03 K/mm3 (0.02-0.50); Eosinophils Percent Auto 0.3 % (1.0-6.0); Hemoglobin 14.2 g/dL (12.4-15.3); Immature Granulocyte Absolute 0.04 K/mm3 (0.00-0.00); Immature Granulocyte Percent A 0.4 % (0.0-0.0); Lymphocytes Absolute Auto 1.91 K/mm3 (1.10-4.50); Lymphocytes Percent Auto 20.2 % (18.0-42.0); Mean Corpuscular HGB Conc 32.3 g/dL (32.0-36.0); Mean Corpuscular Hemoglobin 33.4 pg (27.0-31.0); Mean Corpuscular Volume 103.5 fL (78.0-102.0); Mean Platelet Volume 9.7 fl (8.7-11.0); Monocytes Absolute Auto 0.81 K/mm3 (0.10-0.90); Monocytes Percent Auto 8.6 % (2.0-11.0); Neutrophils Absolute Auto 6.6 K/mm3 (1.7-7.2); Neutrophils Percent Auto 70.1 % (50.0-70.0); Platelet Count Result 179 K/mm3 (150-420); Red Blood Count 4.25 M/mm3 (4.70-6.10); Red Cell Distribution Width 14.4 % (11.6-14.4); White Blood Count 9.4 K/mm3 (4.8-10.8)
[2021-10-17 19:00] VITALS: BP 123/68; PULSE 65; RESP 19; O2SAT 95
[2021-10-17] MEDS: HYDROcodone/acetaminophen (*CRX) 5-325 MG TABLET 1 TAB PO (19:27)
[2021-10-17 19:57] LABS: NT Pro B Type Natriuretic Pept 268 pg/mL (5-100); Troponin I < 0.012 ng/mL (0.000-0.034)
[2021-10-17 19:59] LABS: Alanine Aminotransferase 37 U/L (6-50); Albumin Level 3.4 g/dL (3.5-5.1); Alkaline Phosphatase 90 U/L (38-126); Anion Gap 4 mmol/L (8-16); Aspartate Amino Transferase 53 U/L (17-59); Bilirubin,Total 0.9 mg/dL (0.2-1.3); Blood Urea Nitrogen 15 mg/dL (9-20); Calcium 8.7 mg/dL (8.4-10.2); Carbon Dioxide 30 mmol/L (22-30); Chloride 101 mmol/L (98-107); Estimated Glomerular Filt Rate > 60; Glucose 97 mg/dL (65-110); Lipase 190 U/L (23-300); Osmolality Calculated 280 mOsm/kg (285-295); Potassium 4.3 mmol/L (3.4-5.0); Sodium 135 mmol/L (137-145); Uric Acid 3.4 mg/dL (3.5-8.5)
[2021-10-17 20:37] LABS: Lactic Acid 1.1 mmol/L (0.4-2.0)
[2021-10-17 20:57] VITALS: BP 124/82; PULSE 70; RESP 17; TEMP 36.3; O2SAT 96
== END 2021-10-17 21:28 | disposition home or self-care (01) ==
PROVIDERS: Emergency Provider Internal Medicine Critical Care Medicine; PCP Internal Medicine
DX: R55 Syncope and collapse (principal); S09.90XA Unspecified injury of head, initial encounter; R07.89 Other chest pain; W19.XXXA Unspecified fall, initial encounter; J44.9 Chronic obstructive pulmonary disease, unspecified; K21.9 Gastro-esophageal reflux disease without esophagitis; I25.10 Atherosclerotic heart disease of native coronary artery without angina pectoris; E88.01 Alpha-1-antitrypsin deficiency; Z87.891 Personal history of nicotine dependence; R06.89 Other abnormalities of breathing
CPT/HCPCS: 36415; 70450; 71250; 72125; 80053; 83605; 83690; 83880; 84484; 84550; 85025; 93005; 99284; A9270

== ENCOUNTER 2021-11-13 02:02 | Day surgery (SDC) | payer MEDICARE, BC, SELFPAY ==
[2021-11-13 07:41] VITALS: BP 128/69; PULSE 76; RESP 15; TEMP 36.4; O2SAT 96
[2021-11-13] MEDS: LIDOCAINE HCL 1% LOCAL INJ 20 ML VIAL (09:07)
--- NOTE | 2021-11-13 09:09 | SUR.OPER ---
loop implanted by Md without difficulty. pressure being held to site for approximately 10min. pt tolerated well.
--- NOTE | 2021-11-13 09:11 | P.PCNCC_ITS ---
Cardiac Cath Procedure Note Date of procedure:: 11/13/21 Performing physician:: Lalo Cornelius MD Indication:: Intermittent syncope Brief clinical history:: This is a 76-year-old man with a previous history of mild nonischemic cardiomyopathy doing well with medical therapy. For 1-2 years he has been having brief episodes of intermittent unexplained syncope. For evaluation of his episodes implantation of a loop recorder has been recommended and scheduled for this morning Procedure Procedure performed:: Implantation of Biotronik bio monitor loop recorder Sedation/Medication given:: No sedation Access site:: Left anterior chest wall Estimated blood loss:: Minimal Procedure note:: Patient was brought to the cardiac laboratory geneticist holding area where the left anterior chest wall was examined a gloria was made in the 4th intercostal space in the midclavicular line. The was then prepped and draped in the normal sterile fashion. Anesthesia with 1% lidocaine was infiltrated locally. Using the supplied insertion kit a puncture was made site of the 4th intercostal space gloria. The insertion tool was then made to deliver the bio monitor loop recorder inferior to the incision. The insertion was easy an uneventful. Manual pressure was held to control cutaneous oozing drop of bile glue was placed on the insertion site and then a Band-Aid over the area. The patient will be discharged a short time for outpatient follow-up. Outpatient monitoring of his rhythm transmissions will be set up through the office. Findings:: Patient received a Biotronik bio monitor 3 loop recorder model number [id number]. Serial number [id number]. Conclusion:: Uneventful and uncomplicated implantation of Biotronik loop recorder for evaluation of intermittent unexplained syncope Lalo Cornelius MD [facility]
== END 2021-11-13 10:30 | disposition home or self-care (01) ==
PROVIDERS: PCP Internal Medicine; Visit Provider Specialist
PROC: (CPT 33285; principal; 2021-11-13 08:30)
DX: R55 Syncope and collapse (principal); I42.8 Other cardiomyopathies; Z87.891 Personal history of nicotine dependence; Z86.16 Personal history of COVID-19; R60.9 Edema, unspecified
CPT/HCPCS: 33285; C1764

== ENCOUNTER 2021-12-16 07:38 | Outpatient (CLI) | payer MEDICARE, SELFPAY ==
[2021-12-16 07:57] LABS: Basophils Absolute Auto 0.04 K/mm3 (0.00-0.10); Basophils Percent Auto 0.7 % (0.0-1.0); Eosinophils Percent Auto 1.9 % (1.0-6.0); Hematocrit 45.3 % (37.0-46.0); Hemoglobin 14.9 g/dL (12.4-15.3); Immature Granulocyte Absolute 0.01 K/mm3 (0.00-0.00); Immature Granulocyte Percent A 0.2 % (0.0-0.0); Lymphocytes Absolute Auto 2.31 K/mm3 (1.10-4.50); Lymphocytes Percent Auto 43.1 % (18.0-42.0); Mean Corpuscular HGB Conc 32.9 g/dL (32.0-36.0); Mean Corpuscular Hemoglobin 34.4 pg (27.0-31.0); Mean Corpuscular Volume 104.6 fL (78.0-102.0); Monocytes Absolute Auto 0.53 K/mm3 (0.10-0.90); Monocytes Percent Auto 9.9 % (2.0-11.0); Neutrophils Absolute Auto 2.4 K/mm3 (1.7-7.2); Neutrophils Percent Auto 44.2 % (50.0-70.0); Platelet Count Result 176 K/mm3 (150-420); Red Blood Count 4.33 M/mm3 (4.70-6.10); Red Cell Distribution Width 13.5 % (11.6-14.4); White Blood Count 5.4 K/mm3 (4.8-10.8)
[2021-12-16 08:55] LABS: Alanine Aminotransferase 22 U/L (16-63); Albumin Level 3.2 g/dL (3.4-5.0); Alkaline Phosphatase 89 U/L (46-116); Anion Gap 4 mmol/L (8-16); Aspartate Amino Transferase 30 U/L (15-37); Bilirubin,Total 0.8 mg/dL (0.00-1.00); Blood Urea Nitrogen 13 mg/dL (7-18); Calcium 8.5 mg/dL (8.5-10.1); Carbon Dioxide 32 mmol/L (21-32); Chloride 106 mmol/L (98-108); Cholesterol 205 mg/dL (0-200); Estimated Glomerular Filt Rate > 60; Folic Acid 8.8 ng/mL (8.6->20); Glucose 87 mg/dL (70-99); HDL Direct 59 mg/dL (40-60); LDL Cholesterol Calculated 131 mg/dL (<130); Osmolality Calculated 293 mOsm/kg (285-295); Potassium 4.3 mmol/L (3.5-5.1); Prostate Specific Antigen 1.4 ng/mL (< OR = 4.0); Sodium 142 mmol/L (136-145); Thyroid Stimulating Hormone 2.11 uIU/mL (0.36-3.74); Total Protein 5.7 g/dL (6.4-8.2); Triglycerides 74 mg/dL (0-150); Vitamin B12 606 pg/mL (193-986)
== END 2021-12-16 07:39 | disposition home or self-care (01) ==
LOC: CHSLAB 07:40
PROVIDERS: PCP Internal Medicine; Visit Provider Internal Medicine
DX: R53.83 Other fatigue (principal); E78.00 Pure hypercholesterolemia, unspecified; Z12.5 Encounter for screening for malignant neoplasm of prostate; F03.90 Unspecified dementia, unspecified severity, without behavioral disturbance, psychotic disturbance, mood disturbance, and anxiety
CPT/HCPCS: 36415; 80053; 80061; 82607; 82746; 84153; 84443; 85025; G0103

== ENCOUNTER 2021-12-19 08:44 | Outpatient (CLI) | payer MEDICARE, BC, SELFPAY ==
--- NOTE | ~2021-12-19 | MR_ITS ---
EXAMINATION: MR brain/brain stem wo con DATE: 12/19/2021 09:37 INDICATION: Asymmetric tremor. Dizziness. TECHNIQUE: Magnetic resonance imaging (MRI) of the brain and brainstem was performed without intraven ous contrast. COMPARISON: Head CT 10/17/2021 FINDINGS: There are scattered areas of nonspecific increased T2-weighted signal intensity in the cere bral white matter and ricarda. There is no intracranial hemorrhage, acute infarction, or abnormal intrac ranial mass lesion. The ventricles are normal in size. There is mild mucosal thickening in the parana william sinuses. There are likely changes of ocular lens replacement surgeries. The mastoid air cells are normal. IMPRESSION: 1. Mild nonspecific cerebral white matter disease and pontine disease, which likely represents chroni c small vessel ischemic disease. Reviewed, dictated and finalized at location A. ND CLERK IMPRESSION: 1. Mild nonspecific cerebral white matter disease and pontine disease, which scotty zhao represents chronic small vessel ischemic disease.
== END 2021-12-19 08:45 | disposition home or self-care (01) ==
LOC: CHSIMG 08:45
PROVIDERS: PCP Internal Medicine; Visit Provider Student in an Organized Health Care Education/Training Program
DX: R25.1 Tremor, unspecified (principal)
CPT/HCPCS: 70551

== ENCOUNTER 2022-12-06 08:45 | Outpatient (CLI) | payer MEDICARE, BC, SELFPAY ==
--- NOTE | ~2022-12-06 | XR_ITS ---
XR chest 2V 12/06/2022 09:04 Indication: Alpha I antitrypsin deficiency. Chronic cough. Shortness of breath. Procedure: 2 view chest Comparison: Comparison to multiple prior studies sequentially, with oldest reviewed study dated 11/15. Findings: Heart size normal. No focal air space disease, pulmonary edema, pleural effusion or suspect ed pneumothorax. There is bibasilar atelectasis/scarring. The lungs are hyperinflated which is consis tent with, but not diagnostic of chronic obstructive pulmonary disease. Impression: 1: No acute cardiopulmonary disease. Reviewed, dictated and finalized at location B. Impression: 1: No acute cardiopulmonary disease.
== END 2022-12-06 08:46 | disposition home or self-care (01) ==
LOC: CHSLAB 08:49
PROVIDERS: PCP Internal Medicine; Visit Provider Nurse Practitioner Family
DX: J44.9 Chronic obstructive pulmonary disease, unspecified (principal); E88.01 Alpha-1-antitrypsin deficiency
CPT/HCPCS: 71046

== ENCOUNTER 2022-12-27 09:58 | Outpatient (CLI) | payer MEDICARE, BC, SELFPAY ==
--- NOTE | 2022-12-28 17:10 | WPDPFTINT ---
PFT Procedure Performed PFT Procedure Performed Spirometry with Pre/Post Bronchodilator Plethysmography (Lung Vol) Diffusing Cap (DLCO) Flow Vol Loop PFT Interpretation DOS: 12/27/2022 REQUESTING: Agusto Mcneal APRN REASON FOR TESTING: COPD PULMONARY FUNCTION TESTS Results are reliable and reproducible. Spirometry: Pre-bronchodilator FEV1 is 1.17 L, 38% predicted, severely decreased. Pre-bronchodilator FVC is 3.70 L, 92%, normal. FEV1 / FVC ratio was 32%. After bronchodilator administration there is a 4% increase in the FEV1 and no change in the FVC. The FEV1/FVC ratio is 33%, no change. Lung volumes: Total lung capacity is 8.15 L, 123%, mild hyperinflation. Residual volume is 4.45 L, 163% predicted, severely increased consistent with air trapping. Airway resistance 235%. Diffusion: DLCO is 11.4, 53%, moderately decreased. DLCO / VA is 2.45, 71% almost normal. Flow volume loop: There is severe coving of the expiratory limb. IMPRESSION: This study shows a severe obstructive ventilatory impairment without response to bronchodilator, mild hyperinflation, severe air trapping, moderate diffusion impairment with partial correction for alveolar volume. Lack of response to bronchodilator should not preclude use of clinically indicated. Compared to a prior study 11/16/2018, values are similar. FEV1 was 1.09 L, 35% and the FVC was 2.65 L, 67%. After bronchodilator the FVC increased by 10%. The FVC currently is 3.7 L so the FVC appears improved. The total lung capacity was 7.49 L, 116%, similar to current value. Residual volume was increased 4.21 L, 162%, same. DLCO was 51% and improved to 85%. Similar values. These values are consistent with severe emphysema. Sabina Allen MD
--- NOTE | 2022-12-28 17:19 | WPDSIXMINUTE ---
Six Minute Walk Procedure Procedure Performed Pulmonary Stress Test (6 min walk) Six Minute Walk Six Minute Walk: DATE OF SERVICE: 12/27/2022 REQUESTING: Agusto Mcneal APRN REASON FOR TESTING: COPD SIX MINUTE WALK This test was conducted per ATS guidelines. The initial saturation was 96%, and initial heart rate was 96 beats per minute. The patient walked without stopping, completing 850 feet/259 meters. The saturation at the end of testing was 91%, and the heart rate was 111. The patient did not have any reportable dyspnea or fatigue. IMPRESSION: This is a normal study. The patient did not require supplemental oxygen with exertion. Sabina Allen MD
== END 2022-12-27 09:59 | disposition home or self-care (01) ==
LOC: CHSCARD 09:59
PROVIDERS: PCP Internal Medicine; Visit Provider Nurse Practitioner Family
DX: R06.09 Other forms of dyspnea (principal); J44.9 Chronic obstructive pulmonary disease, unspecified; E88.01 Alpha-1-antitrypsin deficiency; R94.2 Abnormal results of pulmonary function studies
CPT/HCPCS: 94060; 94618; 94726; 94729

== ENCOUNTER 2023-01-05 07:00 | Outpatient (CLI) | payer MEDICARE, SELFPAY ==
[2023-01-05 07:12] LABS: Basophils Absolute Auto 0.03 K/mm3 (0.00-0.10); Basophils Percent Auto 0.5 % (0.0-1.0); Eosinophils Absolute Auto 0.06 K/mm3 (0.02-0.50); Hematocrit 45.6 % (37.0-46.0); Hemoglobin 15.1 g/dL (12.4-15.3); Immature Granulocyte Absolute 0.01 K/mm3 (0.00-0.00); Immature Granulocyte Percent A 0.2 % (0.0-0.0); Lymphocytes Absolute Auto 2.29 K/mm3 (1.10-4.50); Lymphocytes Percent Auto 36.9 % (18.0-42.0); Mean Corpuscular HGB Conc 33.1 g/dL (32.0-36.0); Mean Corpuscular Hemoglobin 34.6 pg (27.0-31.0); Mean Corpuscular Volume 104.3 fL (78.0-102.0); Mean Platelet Volume 9.2 fl (8.7-11.0); Monocytes Absolute Auto 0.61 K/mm3 (0.10-0.90); Monocytes Percent Auto 9.8 % (2.0-11.0); Neutrophils Absolute Auto 3.2 K/mm3 (1.7-7.2); Neutrophils Percent Auto 51.6 % (50.0-70.0); Platelet Count Result 187 K/mm3 (150-420); Red Blood Count 4.37 M/mm3 (4.70-6.10); Red Cell Distribution Width 14.1 % (11.6-14.4); White Blood Count 6.2 K/mm3 (4.8-10.8)
[2023-01-05 08:03] LABS: Alanine Aminotransferase 31 U/L (16-63); Alkaline Phosphatase 101 U/L (46-116); Anion Gap 3 mmol/L (8-16); Aspartate Amino Transferase 33 U/L (15-37); Bilirubin,Total 0.7 mg/dL (0.00-1.00); Blood Urea Nitrogen 16 mg/dL (7-18); Calcium 8.8 mg/dL (8.5-10.1); Carbon Dioxide 36 mmol/L (21-32); Chloride 104 mmol/L (98-108); Cholesterol 186 mg/dL (0-200); Estimated Glomerular Filt Rate > 60; Glucose 86 mg/dL (70-99); HDL Direct 79 mg/dL (40-60); LDL Cholesterol Calculated 98 mg/dL (<130); Osmolality Calculated 296 mOsm/kg (285-295); Potassium 4.6 mmol/L (3.5-5.1); Prostate Specific Antigen 1.4 ng/mL (< OR = 4.0); Sodium 143 mmol/L (136-145); Thyroid Stimulating Hormone 1.63 uIU/mL (0.36-3.74); Total Protein 5.8 g/dL (6.4-8.2); Triglycerides 45 mg/dL (0-150); Uric Acid 3.5 mg/dL (3.5-7.2)
== END 2023-01-05 07:01 | disposition home or self-care (01) ==
LOC: CHSLAB 07:01
PROVIDERS: PCP Internal Medicine; Visit Provider Internal Medicine
DX: E80.6 Other disorders of bilirubin metabolism (principal); D64.9 Anemia, unspecified; Z87.39 Personal history of other diseases of the musculoskeletal system and connective tissue; Z12.5 Encounter for screening for malignant neoplasm of prostate; R53.83 Other fatigue; E78.00 Pure hypercholesterolemia, unspecified
CPT/HCPCS: 36415; 80053; 80061; 84153; 84443; 84550; 85025; G0103

== ENCOUNTER 2023-04-02 10:39 | Emergency (ER) | payer MEDICARE, BC, SELFPAY ==
[2023-04-02 10:40] VITALS: BP 124/77; PULSE 86; RESP 19; TEMP 36.6; O2SAT 97
--- NOTE | 2023-04-02 10:41 | ED.SKABFB ---
HPI - Skin/Abscess/Foreign Bdy General Chief complaint: Skin/Abscess/Foreign Body Stated complaint: L arm skin tear Time Seen by Provider: 04/02/23 10:40 Source: patient Mode of arrival: ambulatory Limitations: no limitations History of Present Illness HPI narrative: is a 77-year-old male with a history of dimension currently on Eliquis history of COPD presents with a skin tear to the anterior surface of his left forearm that occurred earlier today after he got into a spasm with his . Currently not bleeding will update him with his tetanus vaccine. Has good range of motion no numbness or tingling. complaint: lesion Related Data Home Medications Medication Instructions Recorded Confirmed albuterol sulfate 90 mcg/actuation 2 puff inhalation QID PRN 11/13/21 03/24/23 aerosol inhaler Shortness Of Breath Allergies Allergy/AdvReac Type Severity Reaction Status Date / Time azithromycin Allergy Mild Dizziness Verified 03/23/23 08:20 Sulfa (Sulfonamide Allergy Mild Rash Verified 03/23/23 08:20 Antibiotics) Review of Systems Review of Systems: All systems reviewed & are unremarkable except as noted in HPI and below PMFSH Past Medical History Medical History Acute respiratory failure with hypoxemia Ekrlr-4-xcvxvhseubs deficiency Bilateral flank pain Bilateral lower extremity edema Community acquired pneumonia (~02/24/19) COPD (chronic obstructive pulmonary disease) Dietary counseling and surveillance (11/08/16) WINTER (dyspnea on exertion) Encounter for screening for malignant neoplasm of prostate Gastro-esophageal reflux disease without esophagitis Generalized abdominal pain History of coronary artery disease History of deep venous thrombosis or pulmonary embolus History of gastroesophageal reflux (GERD) History of gout Hypomagnesemia (~02/24/19) Leukocytosis Lower abdominal pain Orthostatic hypotension Personal history of colonic polyps Retinal artery branch occlusion, right eye Sepsis Sepsis with acute respiratory failure and septic shock Severe sepsis Wheezing Surgical History Surgical History History of cardiac catheterization History of tonsillectomy Family History Family History Other Unknown family medical history Social History Social History Smoking packs per day: 1 Smoking cigarettes per day: 20.0 Years smoked: 30 Smoking pack-years: 30.00 Smoking status: Former smoker Tobacco type: cigarettes Second hand tobacco smoke exposure: Yes Smoking end date: 02/15/88 Alcohol intake: current Drinks per week: 14 Alcohol use details: 2 drinks a day Substance use: never Substance use type: does not use Do You Feel Safe in your Home?: Yes Lack of Transportation: No Lack of Food: Never True Current Housing: I Have Housing Concerned About Future Housing: No Difficulty Paying Gas/Electric Bills: No Difficulty Paying for Meds: No Currently Unemployed: No Education: Trade/Vocational Certificate Difficulty w/ Childcare or Family Care: No Living arrangements: with family Gender identity (if verbalized by the patient): Male Spiritual care concerns: No Agree to blood products: Yes Exam Const: General: healthy appearing and no acute distress Nutritional Appearance: well nourished Limitations: no limitations Chest: Chest palpation & inspection: normal inspection of the chest Resp: Effort & Inspection: normal respiratory effort Auscultation: clear to auscultation bilaterally Cardio: Rate: regular rate Rhythm: regular rhythm GI: GI Palp: Yes Soft to palpation Auscultation: normal bowel sounds Skin: Wounds: wounds noted Other: Skin tear to anterior left forearm Neuro: General: moves all extremities Extrem
[2023-04-02] MEDS: TETANUS,DIPHTHERIA,AC PERTUSSIS ADULT 0.5 ML (ADACEL) IM (10:49)
== END 2023-04-02 11:02 | disposition home or self-care (01) ==
PROVIDERS: Emergency Provider Emergency Medicine; PCP Internal Medicine
DX: S51.812A Laceration without foreign body of left forearm, initial encounter (principal); J44.9 Chronic obstructive pulmonary disease, unspecified; I25.10 Atherosclerotic heart disease of native coronary artery without angina pectoris; Z87.891 Personal history of nicotine dependence; Z23 Encounter for immunization; Z79.01 Long term (current) use of anticoagulants; W45.8XXA Other foreign body or object entering through skin, initial encounter
CPT/HCPCS: 90471; 90715; 99282

== ENCOUNTER 2023-07-04 12:10 | Emergency (ER) | payer MEDICARE, BC, SELFPAY ==
[2023-07-04] VITALS (35 sets, daily range): BP systolic 88–154; BP diastolic 48–88; PULSE 59–101; RESP 10–20; TEMP 36.9; O2SAT 91–100
--- NOTE | ~2023-07-04 | XR_ITS ---
EXAMINATION: XR chest 1V portable DATE: 07/04/2023 12:29 INDICATION: Cough. Shortness of breath. TECHNIQUE: A single frontal view of the chest was obtained. COMPARISON: Chest 2 views 12/06/2022 FINDINGS: There is mild atelectasis in the lower lung zones. No pleural effusion or pneumothorax. The heart size is normal. IMPRESSION: 1. Mild atelectasis in the lower lung zones. Reviewed, dictated and finalized at location A.
--- NOTE | 2023-07-04 12:14 | ECG_ITS ---
SEE SCANNED COPY FOR CONFIRMED REPORT MTDD
--- NOTE | 2023-07-04 12:15 | PC.NURSE ---
Patient placed on 2L NC patient's o2 drops after exertion but recovers well after rest.
--- NOTE | 2023-07-04 12:15 | ED.GENADULT ---
HPI - General Adult General Chief complaint: Shortness of Breath/Dyspnea Stated complaint: Sob, Cough Time Seen by Provider: 07/04/23 12:13 History of Present Illness HPI narrative: Jose is a 77M with a PMH of alpha-1 antitrypsin, COPD, CHF, and Parkinson's that presented to the ED after not feeling well for a few days. He mowed his lawn a few days ago and had some back pain but shortly after this he had some chest congestion and dyspnea and coughing with sputum production. He has also felt very fatigued lately. No fevers, chills, nausea, vomiting or syncope. Related Data Allergies Allergy/AdvReac Type Severity Reaction Status Date / Time azithromycin Allergy Mild Dizziness Verified 07/04/23 12:11 Sulfa (Sulfonamide Allergy Mild Rash Verified 07/04/23 12:11 Antibiotics) Review of Systems Review of Systems: All systems reviewed & are unremarkable except as noted in HPI and below PMFSH Past Medical History Medical History Acute respiratory failure with hypoxemia Zgflg-[id number] deficiency Bilateral flank pain Bilateral lower extremity edema Community acquired pneumonia (~02/24/19) COPD (chronic obstructive pulmonary disease) Dietary counseling and surveillance (11/08/16) WINTER (dyspnea on exertion) Encounter for screening for malignant neoplasm of prostate Gastro-esophageal reflux disease without esophagitis Generalized abdominal pain History of coronary artery disease History of deep venous thrombosis or pulmonary embolus History of gastroesophageal reflux (GERD) History of gout Hypomagnesemia (~02/24/19) Leukocytosis Lower abdominal pain Orthostatic hypotension Personal history of colonic polyps Retinal artery branch occlusion, right eye Sepsis Sepsis with acute respiratory failure and septic shock Severe sepsis Wheezing Surgical History Surgical History History of cardiac catheterization History of tonsillectomy Family History Family History Other Unknown family medical history Social History Social History Smoking packs per day: 1 Smoking cigarettes per day: 20.0 Years smoked: 30 Smoking pack-years: 30.00 Smoking status: Former smoker Tobacco type: cigarettes Second hand tobacco smoke exposure: Yes Smoking end date: 02/15/88 Alcohol intake: current Drinks per week: 14 Alcohol use details: 2 drinks a day Substance use: never Substance use type: does not use Do You Feel Safe in your Home?: Yes Lack of Transportation: No Lack of Food: Never True Current Housing: I Have Housing Concerned About Future Housing: No Difficulty Paying Gas/Electric Bills: No Difficulty Paying for Meds: No Currently Unemployed: No Education: Trade/Vocational Certificate Difficulty w/ Childcare or Family Care: No Living arrangements: with family Gender identity (if verbalized by the patient): Male Spiritual care concerns: No Agree to blood products: Yes Exam Const: General: cooperative, healthy appearing, comfortable, no acute distress, well developed, alert, awake and Physically active Orientation/consciousness: oriented to person, oriented to place and oriented to time HENMT: Head: normal to inspection, normocephalic and atraumatic Ears: hearing grossly normal bilaterally and external ears normal Face/Nose/Sinus: Normal external nose present Eyes: General: appearance normal, both eyes and all related structures Periorbital: periorbital findings normal Sclera: sclerae normal Pupils: Equal, round and reactive pupils present Neck: Neck: normal visual inspection Chest: Chest palpation & inspection: normal inspection of the chest Resp: Effort & Inspection: normal respiratory effort, able to speak in complete sentences and no respiratory distr
[2023-07-04] MEDS: IPRATROPIUM 0.5 MG/ALBUTEROL SULFATE 2.5 MG AMPUL.NEB 3 ML INHALATION (12:46)
[2023-07-04 13:00] LABS: Hematocrit 48.5 % (37.0-46.0); Hemoglobin 15.6 g/dL (12.4-15.3); Immature Platelet Fraction Pct 2.3 % (1.0-7.0); Mean Corpuscular HGB Conc 32.2 g/dL (32-36); Mean Corpuscular Hemoglobin 33.5 pg (27.0-31.0); Mean Corpuscular Volume 104.1 fL (78.0-102.0); Mean Platelet Volume 10.1 fl (8.7-11.0); Platelet Count Result 100 K/mm3 (150-420); Red Blood Count 4.66 M/mm3 (4.70-6.10); Red Cell Distribution Width 14.4 % (11.6-14.4)
--- NOTE | 2023-07-04 13:00 | PC.NURSE ---
Patient taking o2 off and monitoring system. states patient gets more confused when he isn't feeling well.
[2023-07-04 13:04] LABS: HCO3 VBG 26.1 mEq/l (24.0-30.0); PCO2 VBG 48.2 mmHg (42.0-48.0); pH VBG 7.35 (7.33-7.43)
[2023-07-04 13:05] LABS: Device NASAL CANNULA; PO2 VBG 22.6 mmHg (35.0-45.0)
[2023-07-04] MEDS: DOXYCYCLINE HYCLATE 50 MG CAPSULE PO (13:07)
[2023-07-04] MEDS: predniSONE 40 MG, predniSONE 10 MG 50 MG PO (13:07)
[2023-07-04] MEDS: METOPROLOL TARTRATE INJ 5 MG/5 ML VIAL IV PUSH (13:10)
[2023-07-04 13:34] LABS: SARS-CoV-2 RNA PCR Negative (Negative)
[2023-07-04 13:40] LABS: Influenza A QL RT-PCR Negative (Negative); Influenza B QL RT-PCR Negative (Negative); RSV RNA, RT-PCR Negative (Negative)
[2023-07-04 13:46] LABS: Appearance Urine Clear (Clear); Bilirubin Urine Negative (Negative); Blood Urine Negative (Negative); Color Urine Yellow (Yellow); Glucose Urine UA Negative (Negative); Ketones Urine Negative (Negative); Leukocyte Esterase Ur Negative (Negative); Nitrate Urine Negative (Negative); Protein Urine Negative (Negative); Specific Grav Ur 1.015 (1.010-1.020); Urobilinogen Urine 0.2 mg/dL (0.2-1.0); pH Urine 5.5 (5.0-8.0)
[2023-07-04 13:49] LABS: Add Urine Microscopic? NO
[2023-07-04 14:07] LABS: Alanine Aminotransferase 21 U/L (6-50); Albumin Level 3.4 g/dL (3.5-5.1); Alkaline Phosphatase 109 U/L (38-126); Anion Gap 3 mmol/L (4-12); Aspartate Amino Transferase 118 U/L (17-59); Bilirubin,Total 0.5 mg/dL (0.2-1.3); Blood Urea Nitrogen 26 mg/dL (9-20); Calcium 8.4 mg/dL (8.4-10.2); Carbon Dioxide 29 mmol/L (22-30); Chloride 104 mmol/L (98-107); Estimated Glomerular Filt Rate > 60; Glucose 96 mg/dL (65-110); Magnesium 1.9 mg/dL (1.6-2.3); Osmolality Calculated 286 mOsm/kg (285-295); Potassium 4.9 mmol/L (3.4-5.0); Sodium 136 mmol/L (137-145)
--- NOTE | 2023-07-04 14:07 | PC.NURSE ---
Patient educated on keeping monitoring system on.
[2023-07-04 14:14] LABS: Band Neutrophils Percent 0 % (0-6); Basophils Percent Manual 0 % (0-1); Eosinophils Percent Manual 0 % (1-6); Lymphocytes Absolute Manual 1.14 K/mm3 (1.1-4.5); Lymphocytes Percent Manual 38 % (18-44); Monocytes Absolute Manual 0.24 K/mm3 (0.1-0.90); Monocytes Percent Manual 8 % (3-9); Neutrophils Absolute Manual 1.62 K/mm3 (1.3-6.7); Neutrophils Percent Manual 54 % (46-73); Total Cells Counted 100; Troponin I < 0.012 ng/mL (0.000-0.034)
[2023-07-04 14:15] LABS: Platelet Estimate Decreased (Adequate)
[2023-07-04 14:22] LABS: NT Pro B Type Natriuretic Pept 261 pg/mL (19.9-100)
[2023-07-04] MEDS: MORPHINE SULFATE (*CRX) 4 MG/ML INJ IV PUSH (14:40)
[2023-07-04] MEDS: SODIUM CHLORIDE 0.9% IV 500 ML 999 ML IV CONT (15:05)
[2023-07-06 10:39] LABS: Ionized Calcium 4.7 mg/dL (4.7-5.5)
== END 2023-07-04 16:46 | disposition home or self-care (01) ==
PROVIDERS: Emergency Provider Family Medicine; PCP Internal Medicine
DX: R00.8 Other abnormalities of heart beat (principal); I47.20 Ventricular tachycardia, unspecified; J44.1 Chronic obstructive pulmonary disease with (acute) exacerbation; I50.9 Heart failure, unspecified; G20.A1 Parkinson's disease without dyskinesia, without mention of fluctuations; E88.01 Alpha-1-antitrypsin deficiency; Z87.891 Personal history of nicotine dependence; Z20.822 Contact with and (suspected) exposure to COVID-19
CPT/HCPCS: 36415; 71045; 80053; 81003; 82330; 82803; 83735; 83880; 84484; 85025; 85055; 87637; 93005; 94640; 96361; 96374; 96375; 99284; A9270; J2270; J7040; J7512

== ENCOUNTER 2023-07-05 13:39 | Emergency (ER) | payer MEDICARE, BC, SELFPAY ==
[2023-07-05] VITALS (9 sets, daily range): BP systolic 80–117; BP diastolic 37–70; PULSE 52–61; RESP 13–20; TEMP 36.2; O2SAT 92–98
--- NOTE | ~2023-07-05 | CT_ITS ---
EXAMINATION: CT chest abdomen pelvis w con DATE: 07/05/2023 17:01 INDICATION: Right lower quadrant abdominal pain, productive cough and hypotension TECHNIQUE: Computed tomography (CT) of the chest, abdomen, and pelvis was performed with 100 mL Omnip aque-350 intravenous contrast. Automated exposure control and iterative reconstruction technique were employed. The dose-length product was 447.85 mGy-cm. COMPARISON: None FINDINGS: CHEST CT: Mild emphysema. Linear bands of discoid atelectasis at the basilar segments of the bilateral lower lo bes. No significant change in a more nodular appearing region of round atelectasis at the lateral bas ilar right lower lobe with associated architectural distortion with volume loss. Small calcified nodu le at the right lower lobe along with calcified right hilar and mediastinal lymph nodes consistent wi th old granulomatous disease. Unchanged 2-3 mm noncalcified granuloma in the left lower lobe. No pneu monia, pulmonary edema, pleural effusion or pneumothorax. Heart size is normal. Atherosclerotic coron paris artery calcification. No pericardial effusion. Thoracic aorta is normal in caliber with no dissec tion. There are few calcified right hilar and mediastinal lymph nodes consistent with old granulomato us disease. No pathologically enlarged thoracic lymphadenopathy. Chronic mild T2 to compression fract ure with 20% anterior vertebral body height loss. Mild to moderate thoracic spondylosis with bridging osteophytes at multiple levels consistent with diffuse idiopathic skeletal hyperostosis (DISH). ABDOMEN/PELVIS CT: 5 mm cyst in the left hepatic lobe. Multiple calcified gallstones the dependent aspect of the otherwi se normal gallbladder with no gallbladder wall thickening or pericholecystic infiltrate stranding to suggest acute cholecystitis. Tiny splenic calcification consistent with old granulomatous disease. Pa ncreas, bilateral adrenal glands and kidneys are normal. Bowels including the appendix are normal. Bl adder is normal. Prostatomegaly measuring 4.3 x 3.7 cm. No free intraperitoneal gas or fluid. No path ologically enlarged abdominal or pelvic lymphadenopathy. Mild lumbar spondylosis. Chronic osteonecros is at the bilateral femoral heads. IMPRESSION: 1. Mild emphysema with stable appearance of small region of round atelectasis in the right lower lobe . No acute cardiopulmonary disease. 2. Cholelithiasis. 3. Prostatomegaly. 4. 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 Reviewed, dictated and finalized at location A. IMPRESSION: 1. Mild emphysema with stable appearance of small region of round atelectasis i n the right lower lobe. No acute cardiopulmonary disease. 2. Cholelithiasis. 3. Prostatomegaly. 4. 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
--- NOTE | ~2023-07-05 | XR_ITS ---
XR chest 2V DATE: 07/05/2023 14:36 INDICATION: Weakness TECHNIQUE: PA and lateral views COMPARISON: 07/04/2023 portable AP chest at 1231 hours FINDINGS: Normal heart size. Monitor device is noted in the left breast. Thoracic aortic arch calcifi cation. No hilar or mediastinal enlargement. Mild bilateral hyperinflation. Possible minimal atelectasis at the lung bases. No pulmonary consolida tion is evident. Slight blunting of the costophrenic angles may indicate minimal pleural effusions. Osteopenia. IMPRESSION: Minimal bilateral pleural effusions are suggested Possible minimal atelectasis at the lung bases. Reviewed, dictated and finalized at location B.
--- NOTE | 2023-07-05 14:00 | ECG_ITS ---
SEE SCANNED COPY FOR CONFIRMED REPORT MTDD
[2023-07-05 14:41] LABS: Hematocrit 51.3 % (42.0-52.0); Hemoglobin 16.8 g/dL (14.0-18.0); Immature Granulocyte Absolute 0.01 K/mm3 (0.00-0.031); Immature Granulocyte Percent A 0.4 % (0-0.5); Immature Platelet Fraction Pct 3.6 % (0.9-11.2); Lymphocytes Absolute Auto 0.67 K/mm3 (0.9-3.2); Lymphocytes Percent Auto 26.2 % (18.3-44.2); Mean Corpuscular HGB Conc 32.7 g/dl (32-36); Mean Corpuscular Hemoglobin 34.3 pg (26-34); Mean Corpuscular Volume 104.7 fl (80-100); Mean Platelet Volume 10.6 fl (7.4-10.4); Monocytes Absolute Auto 0.1 K/mm3 (0.1-0.6); Monocytes Percent Auto 5.1 % (2.6-8.5); Neutrophils Absolute Auto 1.8 K/mm3 (1.3-6.7); Neutrophils Percent Auto 68.3 % (45.5-73.1); Platelet Count Result 95 k/mm3 (150-375); Red Cell Distribution Width 14.6 % (11.5-14.5); White Blood Count 2.6 K/mm3 (4.5-10.0)
[2023-07-05 14:48] LABS: Lactic Acid Reflex 1.6 mmol/L (0.7-2.0)
[2023-07-05 14:49] LABS: Alanine Aminotransferase 11 U/L (6-50); Albumin Level 3.7 g/dL (3.5-5.1); Alkaline Phosphatase 108 U/L (38-126); Anion Gap 3 mmol/L (4-12); Aspartate Amino Transferase 121 U/L (17-59); Bilirubin,Total 0.6 mg/dL (0.2-1.3); Blood Urea Nitrogen 31 mg/dL (9-20); Calcium 8.5 mg/dL (8.4-10.2); Carbon Dioxide 29 mmol/L (22-30); Chloride 103 mmol/L (98-107); Estimated CRCL calculation 48 ml/min; Estimated Glomerular Filt Rate > 60; Glucose 124 mg/dL (65-110); Potassium 5.2 mmol/L (3.4-5.0); Sodium 135 mmol/L (137-145)
[2023-07-05 15:28] LABS: Appearance Urine Clear (Clear); Bilirubin Urine Negative (Negative); Blood Urine Negative (Negative); Color Urine Dark Yellow (Yellow); Glucose Urine UA Negative (Negative); Ketones Urine Trace mg/dL (Negative); Leukocyte Esterase Ur Negative LEU/UL (Negative); Nitrate Urine Negative (Negative); Protein Urine Negative (Negative); Specific Grav Ur 1.018 (1.001-1.035); Urobilinogen Urine 0.2 mg/dL (<2.0); pH Urine 5.5 (5.0-9.0)
[2023-07-05 15:29] LABS: Add Urine Microscopic? YES
--- NOTE | 2023-07-05 16:31 | ED.GENADULT ---
HPI - General Adult General Chief complaint: Weakness Stated complaint: weakness Time Seen by Provider: 07/05/23 14:56 History of Present Illness HPI narrative: this is a 77 year male presenting ED with chief complaint of not feeling well. Patient says he has been well for the last for 5 days. Symptoms include cough and congestion. He was seen at an outside hospital yesterday where he was having ventricular bigeminy 1 nonsustained V-tach. He was placed on metoprolol and discharged with no episodes of syncope or chest pain. This time the patient just feels like he has low energy. No fever chills nausea vomiting diarrhea chest pain difficulty breathing or abdominal pain. Related Data Allergies Allergy/AdvReac Type Severity Reaction Status Date / Time azithromycin Allergy Mild Dizziness Verified 07/05/23 17:17 Sulfa (Sulfonamide Allergy Mild Rash Verified 07/05/23 17:17 Antibiotics) [facility] Past Medical History Medical History Acute respiratory failure with hypoxemia [id number] deficiency Bilateral flank pain Bilateral lower extremity edema Community acquired pneumonia (~02/24/19) COPD (chronic obstructive pulmonary disease) Dietary counseling and surveillance (11/08/16) WINTER (dyspnea on exertion) Encounter for screening for malignant neoplasm of prostate Gastro-esophageal reflux disease without esophagitis Generalized abdominal pain History of coronary artery disease History of deep venous thrombosis or pulmonary embolus History of gastroesophageal reflux (GERD) History of gout Hypomagnesemia (~02/24/19) Leukocytosis Lower abdominal pain Orthostatic hypotension Personal history of colonic polyps Retinal artery branch occlusion, right eye Sepsis Sepsis with acute respiratory failure and septic shock Severe sepsis Wheezing Surgical History Surgical History History of cardiac catheterization History of tonsillectomy Family History Family History Other Unknown family medical history Social History Social History Smoking packs per day: 1 Smoking cigarettes per day: 20.0 Years smoked: 30 Smoking pack-years: 30.00 Smoking status: Former smoker Tobacco type: cigarettes Second hand tobacco smoke exposure: Yes Smoking end date: 02/15/88 Alcohol intake: current Drinks per week: 14 Alcohol use details: 2 drinks a day Substance use: never Substance use type: does not use Do You Feel Safe in your Home?: Yes Lack of Transportation: No Lack of Food: Never True Current Housing: I Have Housing Concerned About Future Housing: No Difficulty Paying Gas/Electric Bills: No Difficulty Paying for Meds: No Currently Unemployed: No Education: Trade/Vocational Certificate Difficulty w/ Childcare or Family Care: No Living arrangements: with family Gender identity (if verbalized by the patient): Male Spiritual care concerns: No Agree to blood products: Yes Exam Narrative: APPEARANCE: No apparent distress. Head: atraumatic. EYES: EOMI, NOSE: Atraumatic NECK: Trachea midline RESPIRATORY: No increased rate of breathing, CTAB CARDIOVASCULAR: RRR, no peripheral edema ABDOMINAL: nondistended, tenderness in the right lower quadrant, no guarding or rebound MUSCULOSKELETAl: No obvious deformities NEURO: Alert. Moving 4/4 extremities SKIN:: Warm, dry. Normal color PSYCHIATRIC: Normal affect Course Vital Signs Vital signs: Vital Signs Temperature 97.2 F L 07/05/23 13:47 Pulse Rate 61 07/05/23 13:47 Respiratory Rate 20 07/05/23 13:47 Blood Pressure 80/37 L 07/05/23 13:47 Pulse Oximetry 92 07/05/23 13:47 Temperature 97.2 F L 07/05/23 13:47 Pulse Rate 58 L 07/05/23 18:02 Respiratory Rate 16 07/05/23 18:02 Blood Pr
[2023-07-05] MEDS: SODIUM CHLORIDE 0.9% IV 2,000 ML 999 ML IV CONT (16:42)
[2023-07-05 17:02] LABS: Influenza A QL RT-PCR Negative (Negative); Influenza B QL RT-PCR Negative (Negative); RSV RNA, RT-PCR Negative (Negative); SARS-CoV-2 RNA PCR Negative (Negative)
== END 2023-07-05 18:55 | disposition left against medical advice (07) ==
PROVIDERS: Emergency Provider Emergency Medicine; PCP Internal Medicine
DX: R53.1 Weakness (principal); Z20.822 Contact with and (suspected) exposure to COVID-19; G20.A1 Parkinson's disease without dyskinesia, without mention of fluctuations; F03.90 Unspecified dementia, unspecified severity, without behavioral disturbance, psychotic disturbance, mood disturbance, and anxiety; I25.10 Atherosclerotic heart disease of native coronary artery without angina pectoris; J44.9 Chronic obstructive pulmonary disease, unspecified; E88.01 Alpha-1-antitrypsin deficiency; K21.9 Gastro-esophageal reflux disease without esophagitis; M10.9 Gout, unspecified; Z86.718 Personal history of other venous thrombosis and embolism; Z86.010 Personal history of colon polyps; Z87.01 Personal history of pneumonia (recurrent); Z87.891 Personal history of nicotine dependence; Z79.01 Long term (current) use of anticoagulants; Z79.899 Other long term (current) drug therapy; J43.9 Emphysema, unspecified; K80.20 Calculus of gallbladder without cholecystitis without obstruction; N40.0 Benign prostatic hyperplasia without lower urinary tract symptoms; M87.9 Osteonecrosis, unspecified
CPT/HCPCS: 36415; 71046; 71260; 74177; 80053; 81001; 83605; 85025; 85055; 87040; 87637; 93005; 96360; 99284; J7030; Q9967

== ENCOUNTER 2023-07-08 15:16 | Outpatient (CLI) | payer MEDICARE, SELFPAY ==
[2023-07-08 15:36] LABS: Hematocrit 50.2 % (37.0-46.0); Hemoglobin 16.2 g/dL (12.4-15.3); Immature Platelet Fraction Pct 5.1 % (1.0-7.0); Mean Corpuscular HGB Conc 32.3 g/dL (32-36); Mean Corpuscular Hemoglobin 32.9 pg (27.0-31.0); Mean Platelet Volume 10.4 fl (8.7-11.0); Platelet Count Result 88 K/mm3 (150-420); Red Blood Count 4.92 M/mm3 (4.70-6.10); White Blood Count 5.5 K/mm3 (4.8-10.8)
[2023-07-08 16:06] LABS: Alanine Aminotransferase 21 U/L (16-63); Albumin Level 2.8 g/dL (3.4-5.0); Alkaline Phosphatase 103 U/L (46-116); Anion Gap 6 mmol/L (4-12); Aspartate Amino Transferase 102 U/L (15-37); Bilirubin,Total 0.5 mg/dL (0.00-1.00); Blood Urea Nitrogen 24 mg/dL (7-18); Calcium 8.5 mg/dL (8.5-10.1); Carbon Dioxide 32 mmol/L (21-32); Chloride 101 mmol/L (98-108); Estimated Glomerular Filt Rate 55; Glucose 145 mg/dL (70-99); Osmolality Calculated 295 mOsm/kg (285-295); Potassium 4.6 mmol/L (3.5-5.1); Sodium 139 mmol/L (136-145); Total Protein 5.7 g/dL (6.4-8.2)
[2023-07-08 17:20] LABS: Band Neutrophils Percent 1 % (0-6); Basophils Absolute Manual 0.05 K/mm3 (0-0.1); Basophils Percent Manual 1 % (0-1); Eosinophils Absolute Manual 0.05 K/mm3 (0.02-0.50); Eosinophils Percent Manual 1 % (1-6); Lymphocytes Absolute Manual 3.13 K/mm3 (1.1-4.5); Lymphocytes Percent Manual 57 % (18-44); Monocytes Absolute Manual 0.16 K/mm3 (0.1-0.90); Monocytes Percent Manual 3 % (3-9); Neutrophils Absolute Manual 2.09 K/mm3 (1.3-6.7); Neutrophils Percent Manual 37 % (46-73); Platelet Estimate Decreased (Adequate); Total Cells Counted 100
== END 2023-07-08 15:17 | disposition home or self-care (01) ==
PROVIDERS: PCP Internal Medicine; Visit Provider Internal Medicine
DX: R53.1 Weakness (principal); R79.89 Other specified abnormal findings of blood chemistry; E80.6 Other disorders of bilirubin metabolism
CPT/HCPCS: 36415; 80053; 83516; 85025; 85055; 86038; 86376; 86381

== ENCOUNTER 2023-07-09 10:59 | Emergency (ER) | payer MEDICARE, BC, SELFPAY ==
[2023-07-09] VITALS (21 sets, daily range): BP systolic 92–145; BP diastolic 51–103; PULSE 53–79; RESP 11–20; TEMP 36.2; O2SAT 94–100
--- NOTE | ~2023-07-09 | XR_ITS ---
Clinical Indication: Cough PA and lateral views of the chest: Comparison: 07/05/2023 Findings: There is a focal irregular density at the right lung base. Left lung clear. Probable COPD.. Cardiomediastinal silhouette is stable. Bones and soft tissues are unremarkable. Impression: Developing irregular focal density right lung base. This could reflect focal developing pneumonia. Fo llow up to radiographic resolution is advised. Probable COPD. Reviewed, dictated and finalized at location . Impression: Developing irregular focal density right lung base. This could reflect focal de veloping pneumonia. Follow up to radiographic resolution is advised. Probable COPD.
--- NOTE | 2023-07-09 13:31 | ED.WEAKNESS ---
HPI - Weakness General Chief complaint: Weakness Stated complaint: weakness, not feeling good Time Seen by Provider: 07/09/23 13:04 History of Present Illness HPI Narrative: Patient is a 77-year-old male with history of COPD, GERD, coronary artery disease, DVT on Eliquis, here with generalized weakness. Patient has been seen both at this hospital and his primary care doctor and an outside ER multiple times over the last week since the symptoms began. notes that he started having symptoms about 1 week ago. He has had some nasal congestion, a cough, shortness of breath and generalized fatigue. Symptoms have been persistent. They did note that he was seen in outside emergency department last week and he had fluctuating heart rates, was started on metoprolol as well as an antibiotic, doxycycline for COPD exacerbation. 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 He has had continued worsening symptoms and notes that he just has not been feeling well consistently and is concerned that there is a developing infection that has not been diagnosed. Patient endorses not feeling well, generalized fatigue as well as some cough and shortness of breath. Related Data Allergies Allergy/AdvReac Type Severity Reaction Status Date / Time azithromycin Allergy Mild Dizziness Verified 07/09/23 11:22 Sulfa (Sulfonamide Allergy Mild Rash Verified 07/09/23 11:22 Antibiotics) Review of Systems Review of Systems: All systems reviewed & are unremarkable except as noted in HPI and below PMFSH Past Medical History Medical History Acute respiratory failure with hypoxemia Pwjgw-8-sinfyadhydg deficiency Bilateral flank pain Bilateral lower extremity edema Community acquired pneumonia (~02/24/19) COPD (chronic obstructive pulmonary disease) Dietary counseling and surveillance (11/08/16) WINTER (dyspnea on exertion) Encounter for screening for malignant neoplasm of prostate Gastro-esophageal reflux disease without esophagitis Generalized abdominal pain History of coronary artery disease History of deep venous thrombosis or pulmonary embolus History of gastroesophageal reflux (GERD) History of gout Hypomagnesemia (~02/24/19) Leukocytosis Lower abdominal pain Orthostatic hypotension Personal history of colonic polyps Retinal artery branch occlusion, right eye Sepsis Sepsis with acute respiratory failure and septic shock Severe sepsis Wheezing Surgical History Surgical History History of cardiac catheterization History of tonsillectomy Family History Family History Other Unknown family medical history Social History Social History Smoking packs per day: 1 Smoking cigarettes per day: 20.0 Years smoked: 30 Smoking pack-years: 30.00 Smoking status: Former smoker Tobacco type: cigarettes Second hand tobacco smoke exposure: Yes Smoking end date: 02/15/88 Alcohol intake: current Drinks per week: 14 Alcohol use details: 2 drinks a day Substance use: never Substance use type: does not use Do You Feel Safe in your Home?: Yes Lack of Transportation: No Lack of Food: Never True Current Housing: I Have Housing Concerned About Future Housing: No Difficulty Paying Gas/Electric Bills: No Difficulty Paying for Meds: No Currently Unemployed: No Education: Trade/Vocational Certificate Difficulty w/ Childcare or Family Care: No Living arrangements: with family Gender identity (if verbalized by the patient): Male Spiritual care concerns: No Agree to blood products: Yes Exam Narrative: GENERAL: Well-appearing, well-nourished, and in no acute distress. HEAD: Normocephalic, atraumatic. EYES: PERRLA and EOMI. ENT: Nares clear. Mucous membranes mo
--- NOTE | 2023-07-09 13:36 | ECG_ITS ---
SEE SCANNED COPY FOR CONFIRMED REPORT MTDD
[2023-07-09 14:01] LABS: Hemoglobin 15.9 g/dL (14.0-18.0); Immature Platelet Fraction Pct 5.9 % (0.9-11.2); Mean Corpuscular HGB Conc 33.1 g/dl (32-36); Mean Corpuscular Hemoglobin 33.6 pg (26-34); Mean Corpuscular Volume 101.5 fl (80-100); Mean Platelet Volume 10.4 fl (7.4-10.4); Platelet Count Result 99 k/mm3 (150-375); Red Blood Count 4.73 M/mm3 (4.6-6.20)
[2023-07-09 14:02] LABS: Appearance Urine Clear (Clear); Bilirubin Urine Negative (Negative); Blood Urine Negative (Negative); Color Urine Yellow (Yellow); Glucose Urine UA Negative (Negative); Ketones Urine Negative (Negative); Leukocyte Esterase Ur Negative LEU/UL (Negative); Nitrate Urine Negative (Negative); Protein Urine Negative (Negative); Specific Grav Ur 1.009 (1.001-1.035); Urobilinogen Urine 0.2 mg/dL (<2.0); pH Urine 6.5 (5.0-9.0)
[2023-07-09 14:10] LABS: Lactic Acid Reflex 1.6 mmol/L (0.7-2.0)
[2023-07-09 14:12] LABS: Alanine Aminotransferase 25 U/L (6-50); Albumin Level 3.1 g/dL (3.5-5.1); Alkaline Phosphatase 97 U/L (38-126); Anion Gap 1 mmol/L (4-12); Aspartate Amino Transferase 93 U/L (17-59); Bilirubin,Total 0.7 mg/dL (0.2-1.3); Blood Urea Nitrogen 21 mg/dL (9-20); Calcium 8.6 mg/dL (8.4-10.2); Carbon Dioxide 34 mmol/L (22-30); Chloride 100 mmol/L (98-107); Estimated CRCL calculation 66 ml/min; Estimated Glomerular Filt Rate > 60; Glucose 124 mg/dL (65-110); INR 0.9; Lipase 312 U/L (23-300); Potassium 4.4 mmol/L (3.4-5.0); Prothrombin Time 12.6 Seconds (11.1-14.7); Sodium 135 mmol/L (137-145)
[2023-07-09 14:13] LABS: Partial Thromboplastin Time 39.5 Seconds (22.3-36.8)
[2023-07-09 14:22] LABS: CRP < 0.5 mg/dL (<1.0); Troponin I < 0.012 ng/mL (0.000-0.034)
[2023-07-09 14:27] LABS: Add Urine Microscopic? NO
[2023-07-09 14:33] LABS: Atypical Lymphocytes Present; Band Neutrophils Percent 4 % (0-6); Lymphocytes Absolute Manual 1.44 K/mm3 (1.1-4.5); Monocytes Absolute Manual 0.04 K/mm3 (0.1-0.90); Monocytes Percent Manual 1 % (3-9); Neutrophils Absolute Manual 2.52 K/mm3 (1.3-6.7); Neutrophils Percent Manual 59 % (46-73); Total Cells Counted 100
[2023-07-09 14:34] LABS: Platelet Estimate Decreased (Adequate); Schistocytes None Seen
[2023-07-09 14:45] LABS: Influenza A QL RT-PCR Negative (Negative); Influenza B QL RT-PCR Negative (Negative); RSV RNA, RT-PCR Negative (Negative); SARS-CoV-2 RNA PCR Negative (Negative)
--- NOTE | 2023-07-09 16:25 | PC.NURSE ---
Patient walked up to this RN and states I want to get the fuck out of here . This RN informed MD who went to speak with patient and family.
== END 2023-07-09 16:35 | disposition home or self-care (01) ==
PROVIDERS: Emergency Provider Student in an Organized Health Care Education/Training Program; PCP Internal Medicine
DX: J18.9 Pneumonia, unspecified organism (principal); Z20.822 Contact with and (suspected) exposure to COVID-19; Z87.891 Personal history of nicotine dependence; J44.9 Chronic obstructive pulmonary disease, unspecified; K21.9 Gastro-esophageal reflux disease without esophagitis; R06.02 Shortness of breath
CPT/HCPCS: 36415; 71046; 80053; 81003; 83605; 83690; 84484; 85025; 85055; 85610; 85730; 86140; 87040; 87077; 87637; 93005; 99284

== ENCOUNTER 2023-07-11 13:17 | Inpatient (IN) | payer MEDICARE, BC, SELFPAY ==
[2023-07-11] VITALS (27 sets, daily range): BP systolic 98–137; BP diastolic 52–104; PULSE 63–99; RESP 14–20; TEMP 36.2–36.8; O2SAT 91–100; BMI 21.7
--- NOTE | ~2023-07-11 | XR_ITS ---
EXAMINATION: XR chest 1V portable DATE: 07/11/2023 13:34 INDICATION: Shortness of breath. Weakness. TECHNIQUE: A single frontal view of the chest was obtained. COMPARISON: Chest 2 views 07/09/2023 FINDINGS: There is mild atelectasis versus scarring at the lung bases. No pleural effusion or pneumot horax. The heart size is normal. An electronic implant overlies left chest. IMPRESSION: 1. Mild atelectasis versus scarring at the lung bases. Reviewed, dictated and finalized at location E.
--- NOTE | ~2023-07-11 | CT_ITS ---
EXAMINATION: CTA chest PE protocol DATE: 07/11/2023 14:54 CDT INDICATION: Elevated d-dimer. Weakness and confusion. History of pneumonia. TECHNIQUE: Computed tomographic angiography (CTA) of the chest was performed with 100 mL Omnipaque-35 0 intravenous contrast. The dose-length product was 460.17 mGy-cm. Maximum intensity projection 3D-re constructions of the aorta and other arteries were constructed by the technologist on a separate work station. COMPARISON: CT dated 07/05/2023. FINDINGS: There are no filling defects in right upper and lower lobe segmental and subsegmental pulmo nary arteries, consistent with pulmonary embolism. Heart size normal. No significant pleural or peric ardial effusion. There are gallstones. The there is emphysema. There is dependent atelectasis. There is an irregular shaped 13 mm right lower lobe nodule which is pleural-based. No pneumothorax. No endo bronchial lesions. There is discoid atelectasis of the lung bases. IMPRESSION: 1. New pulmonary embolism involving the right upper and lower lobe segmental and subsegmental pulmona ry arteries. 2: Irregular shaped 13 mm right lower lobe nodule. Recommend correlation with pet/CT or three-month f ollow-up low dose CT chest. 3: Bibasilar atelectasis. 4: Cholelithiasis. Reviewed, dictated and finalized at location A. IMPRESSION: 1. New pulmonary embolism involving the right upper and lower lobe segmental an d subsegmental pulmonary arteries. 2: Irregular shaped 13 mm right lower lobe nodule. Recommend correlation with p et/CT or three-month follow-up low dose CT chest. 3: Bibasilar atelectasis. 4: Cholelithiasis.
--- NOTE | 2023-07-11 13:21 | ECG_ITS ---
SEE SCANNED COPY FOR CONFIRMED REPORT MTDD
[2023-07-11] MEDS: IPRATROPIUM 0.5 MG/ALBUTEROL SULFATE 2.5 MG AMPUL.NEB 3 ML INHALATION ×3 (13:38→23:42)
[2023-07-11 13:48] LABS: Basophils Absolute Auto 0.01 K/mm3 (0.00-0.10); Basophils Percent Auto 0.2 % (0.0-1.0); Eosinophils Absolute Auto 0.01 K/mm3 (0.02-0.50); Eosinophils Percent Auto 0.2 % (1.0-6.0); Hematocrit 49.9 % (37.0-46.0); Hemoglobin 16.3 g/dL (12.4-15.3); Immature Granulocyte Absolute 0.01 K/mm3 (0.00-0.00); Immature Granulocyte Percent A 0.2 % (0.0-0.0); Immature Platelet Fraction Pct 4.5 % (1.0-7.0); Lymphocytes Percent Auto 28.6 % (18.0-42.0); Mean Corpuscular HGB Conc 32.7 g/dL (32-36); Mean Corpuscular Hemoglobin 32.9 pg (27.0-31.0); Mean Corpuscular Volume 100.6 fL (78.0-102.0); Mean Platelet Volume 10.5 fl (8.7-11.0); Monocytes Absolute Auto 0.68 K/mm3 (0.10-0.90); Monocytes Percent Auto 13.9 % (2.0-11.0); Neutrophils Absolute Auto 2.79 K/mm3 (1.70-7.20); Neutrophils Percent Auto 56.9 % (50.0-70.0); Platelet Count Result 131 K/mm3 (150-420); Red Blood Count 4.96 M/mm3 (4.70-6.10); Red Cell Distribution Width 13.7 % (11.6-14.4); White Blood Count 4.9 K/mm3 (4.8-10.8)
[2023-07-11] MEDS: methylPREDNISolone SOD SUCC 125 MG VIAL IV PUSH (13:54)
[2023-07-11] MEDS: SODIUM CHLORIDE 0.9% IV 1,000 ML 999 ML IV CONT (13:55)
[2023-07-11 13:59] LABS: Partial Thromboplastin Time 27.6 Sec (23.9-30.70); Prothrombin Time 10.9 Seconds (9.50-12.1)
[2023-07-11 14:02] LABS: D Dimer 1.09 mg/L (0.19-0.50)
[2023-07-11 14:04] LABS: Lactic Acid Reflex 1.9 mmol/L (0.4-2.0)
--- NOTE | 2023-07-11 14:08 | ED.WEAKNESS ---
HPI - Weakness General Chief complaint: Weakness Stated complaint: weakness Time Seen by Provider: 07/11/23 13:20 Source: patient and family Mode of arrival: wheelchair Limitations: physical limitation History of Present Illness HPI Narrative: This is a 77-year-old male who presents with his with some shortness of breath, has a history of COPD with alpha-1 antitrypsin deficiency was recently seen at [place] [facility] and was diagnosed with pneumonia. Patient otherwise not having any cough does have shortness of breath with congestion with no fever chills no chest pain no nausea vomiting. Patient with history of CHF Parkinson's disease and dementia and currently on Eliquis for history of DVT. Complaint: generalized weakness Onset (ago): day(s) Duration: constant Location: generalized Related Data Allergies Allergy/AdvReac Type Severity Reaction Status Date / Time azithromycin Allergy Mild Dizziness Verified 07/11/23 13:18 Sulfa (Sulfonamide Allergy Mild Rash Verified 07/11/23 13:18 Antibiotics) Review of Systems Review of Systems: All systems reviewed & are unremarkable except as noted in HPI and below PMFSH Past Medical History Medical History Acute respiratory failure with hypoxemia Xtkrp-0-gxqmpcjgfkt deficiency Bilateral flank pain Bilateral lower extremity edema Community acquired pneumonia (~02/24/19) COPD (chronic obstructive pulmonary disease) Dietary counseling and surveillance (11/08/16) WINTER (dyspnea on exertion) Encounter for screening for malignant neoplasm of prostate Gastro-esophageal reflux disease without esophagitis Generalized abdominal pain History of coronary artery disease History of deep venous thrombosis or pulmonary embolus History of gastroesophageal reflux (GERD) History of gout Hypomagnesemia (~02/24/19) Leukocytosis Lower abdominal pain Orthostatic hypotension Personal history of colonic polyps Retinal artery branch occlusion, right eye Sepsis Sepsis with acute respiratory failure and septic shock Severe sepsis Wheezing Surgical History Surgical History History of cardiac catheterization History of tonsillectomy Family History Family History Other Unknown family medical history Social History Social History Smoking packs per day: 1 Smoking cigarettes per day: 20.0 Years smoked: 30 Smoking pack-years: 30.00 Smoking status: Former smoker Tobacco type: cigarettes Second hand tobacco smoke exposure: Yes Smoking end date: 02/15/88 Alcohol intake: current Drinks per week: 14 Alcohol use details: 2 drinks a day Substance use: never Substance use type: does not use Do You Feel Safe in your Home?: Yes Lack of Transportation: No Lack of Food: Never True Current Housing: I Have Housing Concerned About Future Housing: No Difficulty Paying Gas/Electric Bills: No Difficulty Paying for Meds: No Currently Unemployed: No Education: Trade/Vocational Certificate Difficulty w/ Childcare or Family Care: No Living arrangements: with family Gender identity (if verbalized by the patient): Male Spiritual care concerns: No Agree to blood products: Yes Exam Const: General: no acute distress Nutritional Appearance: thin Orientation/consciousness: confusion Limitations: physical limitations HENMT: Head: normal to inspection Eyes: Conjunctivae: conjunctivae normal Pupils: Equal, round and reactive pupils present Neck: Neck: normal visual inspection, no lymphadenopathy and no meningeal signs Chest: Chest palpation & inspection: normal inspection of the chest Resp: Effort & Inspection: normal respiratory effort Auscultation: diminished lung sounds Cardio: Rate: regular rate Rhythm: regular rhythm GI: GI
[2023-07-11 14:10] LABS: Alanine Aminotransferase 24 U/L (16-63); Albumin Level 2.9 g/dL (3.4-5.0); Alkaline Phosphatase 104 U/L (46-116); Anion Gap 6 mmol/L (4-12); Aspartate Amino Transferase 66 U/L (15-37); Bilirubin,Total 1.1 mg/dL (0.00-1.00); Blood Urea Nitrogen 19 mg/dL (7-18); Calcium 8.7 mg/dL (8.5-10.1); Carbon Dioxide 33 mmol/L (21-32); Chloride 100 mmol/L (98-108); Estimated CRCL calculation 45 ml/min; Estimated Glomerular Filt Rate 60; Glucose 101 mg/dL (70-99); Magnesium 2.2 mg/dL (1.8-2.4); NT Pro B Type Natriuretic Pept 246 pg/mL (0-450); Osmolality Calculated 290 mOsm/kg (285-295); Potassium 4.1 mmol/L (3.5-5.1); Sodium 139 mmol/L (136-145); Total Protein 6.2 g/dL (6.4-8.2); Troponin I 20.6 ng/L (0.00-60.4)
[2023-07-11 15:15] LABS: Appearance Urine Clear (Clear); Bilirubin Urine Negative (Negative); Blood Urine Negative (Negative); Color Urine Yellow (Yellow); Glucose Urine UA Negative (Negative); Ketones Urine 1+ (Negative); Leukocyte Esterase Ur Negative LEU/UL (Negative); Nitrate Urine Negative (Negative); Protein Urine Trace (Negative); Urobilinogen Urine 0.2 mg/dL (0.2-1.0); pH Urine 8.5 (5.0-8.0)
[2023-07-11 15:19] LABS: Add Urine Microscopic? YES; RBC Urine None seen /hpf (0-2); WBC Urine None seen /hpf (0-3)
[2023-07-11 15:20] LABS: Bacteria Urine Rare /hpf
--- NOTE | 2023-07-11 16:05 | ADMGEN ---
This patient, Jose Watson, was admitted to 2nd Floor Room 206-1. Patient/family oriented to hospital policies and general routines including ID bracelet, bed and alarms, visiting hours, pain management, procedures, bathroom and other care routines, personal items, smoking policy, room service/diet, and visiting hours. Information on how to activate the Rapid Response Team has been discussed. Patient/Family are encouraged to report perceived risks to care and to ask questions if they do not understand what they are told or what they should do.
[2023-07-11] MEDS: TAMSULOSIN HCL 0.4 MG CAPSULE PO (18:14)
[2023-07-11] MEDS: ENOXAPARIN 100 MG/ML SYRINGE 65 MG SUB-Q (18:15)
[2023-07-11] MEDS: BUDESONIDE RESPULE NEB 0.5 MG/2 ML AMP INHALATION (18:15)
[2023-07-11] MEDS: CARBIDOPA/LEVODOPA 25/100 MG TABLET 1.5 TABLET PO (18:27)
[2023-07-11] MEDS: DOXYCYCLINE 100 MG/NS 100 ML 100 MG/100 ML BAG IVPB (18:43)
[2023-07-11] MEDS: QUEtiapine FUMARATE 12.5 MG TABLET PO (20:17)
[2023-07-11] MEDS: methylPREDNISolone SOD SUCC 40 MG VIAL IV PUSH ×2 (20:17→23:40)
[2023-07-11] MEDS: ONDANSETRON INJ 4 MG/2 ML VIAL IV PUSH (20:17)
[2023-07-11] MEDS: DONEPEZIL HCL 5 MG TABLET 10 MG PO (20:17)
[2023-07-12] VITALS (16 sets, daily range): BP systolic 123–133; BP diastolic 62–88; PULSE 61–90; RESP 16–20; TEMP 36.2–36.6; O2SAT 93–100
[2023-07-12] MEDS: ENOXAPARIN 100 MG/ML SYRINGE 65 MG SUB-Q (05:12)
[2023-07-12] MEDS: methylPREDNISolone SOD SUCC 40 MG VIAL IV PUSH ×4 (05:12→23:24)
[2023-07-12 05:15] LABS: Hematocrit 41.6 % (37.0-46.0); Hemoglobin 13.7 g/dL (12.4-15.3); Immature Platelet Fraction Pct 4.1 % (1.0-7.0); Mean Corpuscular HGB Conc 32.9 g/dL (32-36); Mean Corpuscular Volume 100.2 fL (78.0-102.0); Mean Platelet Volume 10.3 fl (8.7-11.0); Platelet Count Result 120 K/mm3 (150-420); Red Blood Count 4.15 M/mm3 (4.70-6.10); Red Cell Distribution Width 13.6 % (11.6-14.4); White Blood Count 2.7 K/mm3 (4.8-10.8)
[2023-07-12] MEDS: DOXYCYCLINE 100 MG/NS 100 ML 100 MG/100 ML BAG IVPB ×2 (05:17→17:31)
[2023-07-12 05:27] LABS: Partial Thromboplastin Time 30.5 Sec (23.9-30.70); Prothrombin Time 11.4 Seconds (9.50-12.1)
[2023-07-12] MEDS: IPRATROPIUM 0.5 MG/ALBUTEROL SULFATE 2.5 MG AMPUL.NEB 3 ML INHALATION ×3 (05:30→18:48)
[2023-07-12] MEDS: BUDESONIDE RESPULE NEB 0.5 MG/2 ML AMP INHALATION ×2 (05:30→18:48)
[2023-07-12 05:34] LABS: Band Neutrophils Percent 0 % (0-6); Lymphocytes Absolute Manual 0.45 K/mm3 (1.1-4.5); Lymphocytes Percent Manual 17 % (18-44); Monocytes Percent Manual 4 % (3-9); Neutrophils Absolute Manual 2.13 K/mm3 (1.3-6.7); Neutrophils Percent Manual 79 % (46-73); Platelet Estimate Decreased (Adequate); Total Cells Counted 100
[2023-07-12 05:35] LABS: Schistocytes None Seen
[2023-07-12 05:40] LABS: Alanine Aminotransferase 34 U/L (16-63); Albumin Level 2.3 g/dL (3.4-5.0); Alkaline Phosphatase 83 U/L (46-116); Anion Gap 7 mmol/L (4-12); Aspartate Amino Transferase 37 U/L (15-37); Bilirubin,Total 0.6 mg/dL (0.00-1.00); Blood Urea Nitrogen 16 mg/dL (7-18); Calcium 7.8 mg/dL (8.5-10.1); Carbon Dioxide 30 mmol/L (21-32); Chloride 104 mmol/L (98-108); Estimated CRCL calculation 62 ml/min; Estimated Glomerular Filt Rate > 60; Glucose 147 mg/dL (70-99); Magnesium 2.1 mg/dL (1.8-2.4); Osmolality Calculated 296 mOsm/kg (285-295); Potassium 4.4 mmol/L (3.5-5.1); Sodium 141 mmol/L (136-145); Thyroid Stimulating Hormone Reflex 0.99 u/IU/mL (0.36-3.74); Total Protein 5.2 g/dL (6.4-8.2)
--- NOTE | 2023-07-12 07:16 | PM.IMHP ---
H&P: HPI History of Present Illness Date/Time: 07/12/23 07:16 Chief Complaint: Shortness of breath Narrative: Mr. Watson has been admitted to the hospital due to COPD exacerbation and pulmonary embolus. Patient is a very poor historian and not willing to offer much information. Patient is not aware of the year and or why he is hear. Patient does not require any oxygen and is just laying there. 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 There is pulmonary embolism involving the right upper and lower lobe segmental and subsegmental pulmonary arteries. 2: Irregular shaped 13 mm right lower lobe nodule. Recommend correlation with pet/CT or three-month follow-up low dose CT chest. Patient will have a echo completed today and he will need to follow up with possible CT or PET scan outpatient. Patient will be encouraged to take medication today. Patient CoAg were normal unsure if pateint is taking Eliquis at home and we will restart him back on this medication today. IV Steroids, Antibioitcs and breathing treatment to be administered. Review of Systems Review of Systems: Shortness of breath, Pulmonary Embolism All systems reviewed & are unremarkable except as noted in HPI and below PMFSH Past Medical History Medical History Acute respiratory failure with hypoxemia [id number] deficiency Bilateral flank pain Bilateral lower extremity edema Community acquired pneumonia (~02/24/19) COPD (chronic obstructive pulmonary disease) Dietary counseling and surveillance (11/08/16) WINTER (dyspnea on exertion) Encounter for screening for malignant neoplasm of prostate Gastro-esophageal reflux disease without esophagitis Generalized abdominal pain History of coronary artery disease History of deep venous thrombosis or pulmonary embolus History of gastroesophageal reflux (GERD) History of gout Hypomagnesemia (~02/24/19) Leukocytosis Lower abdominal pain Orthostatic hypotension Personal history of colonic polyps Retinal artery branch occlusion, right eye Sepsis Sepsis with acute respiratory failure and septic shock Severe sepsis Wheezing Surgical History Surgical History History of cardiac catheterization History of tonsillectomy Family History Family History Other Unknown family medical history Social History Social History Smoking packs per day: 1.5 Smoking cigarettes per day: 30.0 Years smoked: 35 Smoking pack-years: 52.50 Smoking status: Former smoker Tobacco type: cigarettes Second hand tobacco smoke exposure: Yes Smoking end date: 02/15/88 Alcohol intake: current Drinks per week: 7 Alcohol use details: 2 drinks a day Substance use: never Substance use type: does not use Do You Feel Safe in your Home?: Yes Lack of Transportation: No Lack of Food: Never True Current Housing: I Have Housing Concerned About Future Housing: No Difficulty Paying Gas/Electric Bills: No Difficulty Paying for Meds: No Currently Unemployed: No Education: High School Diploma/GED Difficulty w/ Childcare or Family Care: No Living arrangements: with family Gender identity (if verbalized by the patient): Male Spiritual care concerns: No Agree to blood products: Yes Meds Home Medications and Allergies Home Medications Medication Instructions Recorded Confirmed Type calcium carbonate 200 mg PO DAILY@0800 #30 tabs 02/19/19 07/11/23 Rx budesonide 160 mcg-glycopyr 9 2 inh inhalation QAM AND QPM 90 09/22/22 07/11/23 Rx mcg-formot 4.8 mcg/actuation HFA days #32.1 grams inhaler (Breztri Aerosphere) donepezil 10 mg tablet 10 mg PO QHS #90 tabs 01/24/23 07/11/23 Rx tamsulosin 0.4 mg capsule 0.4 mg PO QPM #90 caps 02/08/23 07/11/23 Rx al
--- NOTE | 2023-07-12 08:38 | PC.NURSE ---
Patient changed to inpatient status.
[2023-07-12] MEDS: FUROSEMIDE 40 MG TABLET PO (09:06)
[2023-07-12] MEDS: POTASSIUM CHLORIDE 20 MEQ ER TABLET 40 MEQ PO (09:06)
[2023-07-12] MEDS: CALCIUM CARBONATE (TUMS) 500 MG (200 MG ELEMENTAL) PO (09:06)
[2023-07-12] MEDS: APIXABAN 2.5 MG TABLET 5 MG PO ×2 (09:06→20:27)
[2023-07-12] MEDS: CARBIDOPA/LEVODOPA 25/100 MG TABLET 1.5 TABLET PO ×3 (09:07→17:31)
[2023-07-12] MEDS: allopurinoL 300 MG TABLET PO (09:07)
--- NOTE | 2023-07-12 12:49 | PC.NURSE ---
Patients Tarah brought in living will, copy made and placed on chart.
[2023-07-12] MEDS: TAMSULOSIN HCL 0.4 MG CAPSULE PO (17:31)
[2023-07-12] MEDS: LORazepam (*CRX) 0.5 MG TABLET PO (19:14)
--- NOTE | 2023-07-12 19:15 | PC.NURSE ---
Upon entering room, pt finishing neb tx given by previous RN. He is upset and angry and wanting to go home and not stay. Pt is a bit irate, able to talk to him to him relax, Ativan given for pts. anxiousness. Assessment completed but pt still wanting to call his to see if he can go home. Explained in detail to pt reason he is admitted and need for meds being given. Pt still not happy about having to stay.
--- NOTE | 2023-07-12 19:33 | PC.NURSE ---
Pt asked another RN when this Rn was in another pt room to help him call his . Pt off phone w/ , wanting to go home. Pt sitting in chair, not wanting to go to bed at this time.
[2023-07-12] MEDS: QUEtiapine FUMARATE 12.5 MG TABLET PO (20:27)
[2023-07-12] MEDS: DONEPEZIL HCL 5 MG TABLET 10 MG PO (20:27)
--- NOTE | 2023-07-12 20:45 | PC.NURSE ---
Pt adament about still trying to call someone to come get him and not wanting to stay and wanting to go home. Call received from pts and states he isn't in his right mind and sometimes gets angry but she will not be coming to get him tonight. Reassured will continue to try to rationalize w/ pt and give him his HS meds to help him sleep and relax.
--- NOTE | 2023-07-12 22:00 | PC.NURSE ---
Pt assisted w/ SBA to BR and back to bed, pt wanting to go to bed at this time and is redirectable. Pt reoriented and call davidson at pt side.
[2023-07-13] MEDS: IPRATROPIUM 0.5 MG/ALBUTEROL SULFATE 2.5 MG AMPUL.NEB 3 ML INHALATION ×2 (00:01→05:34)
[2023-07-13 00:15] VITALS: PULSE 78; RESP 18; O2SAT 97
[2023-07-13 03:56] VITALS: PULSE 76
[2023-07-13 05:33] VITALS: PULSE 69; RESP 16; O2SAT 91
[2023-07-13] MEDS: BUDESONIDE RESPULE NEB 0.5 MG/2 ML AMP INHALATION (05:34)
[2023-07-13 05:41] VITALS: PULSE 70; RESP 16; O2SAT 97
[2023-07-13 05:48] LABS: Basophils Absolute Auto 0.01 K/mm3 (0.00-0.10); Basophils Percent Auto 0.1 % (0.0-1.0); Hematocrit 42.5 % (37.0-46.0); Hemoglobin 14.1 g/dL (12.4-15.3); Immature Granulocyte Absolute 0.05 K/mm3 (0.00-0.00); Immature Granulocyte Percent A 0.6 % (0.0-0.0); Immature Platelet Fraction Pct 4.3 % (1.0-7.0); Lymphocytes Absolute Auto 0.57 K/mm3 (1.10-4.50); Lymphocytes Percent Auto 6.4 % (18.0-42.0); Mean Corpuscular HGB Conc 33.2 g/dL (32-36); Mean Corpuscular Hemoglobin 32.9 pg (27.0-31.0); Mean Corpuscular Volume 99.3 fL (78.0-102.0); Mean Platelet Volume 10.5 fl (8.7-11.0); Monocytes Absolute Auto 0.24 K/mm3 (0.10-0.90); Monocytes Percent Auto 2.7 % (2.0-11.0); Neutrophils Absolute Auto 8.04 K/mm3 (1.70-7.20); Neutrophils Percent Auto 90.2 % (50.0-70.0); Platelet Count Result 143 K/mm3 (150-420); Red Blood Count 4.28 M/mm3 (4.70-6.10); Red Cell Distribution Width 13.7 % (11.6-14.4); White Blood Count 8.9 K/mm3 (4.8-10.8)
[2023-07-13] MEDS: methylPREDNISolone SOD SUCC 40 MG VIAL IV PUSH (05:48)
[2023-07-13] MEDS: DOXYCYCLINE 100 MG/NS 100 ML 100 MG/100 ML BAG IVPB (05:52)
[2023-07-13 05:53] VITALS: PULSE 67; RESP 16; O2SAT 99
[2023-07-13 06:03] LABS: Alanine Aminotransferase 49 U/L (16-63); Albumin Level 2.5 g/dL (3.4-5.0); Alkaline Phosphatase 84 U/L (46-116); Anion Gap 9 mmol/L (4-12); Aspartate Amino Transferase 29 U/L (15-37); Bilirubin,Total 0.5 mg/dL (0.00-1.00); Blood Urea Nitrogen 20 mg/dL (7-18); Calcium 7.9 mg/dL (8.5-10.1); Carbon Dioxide 28 mmol/L (21-32); Chloride 104 mmol/L (98-108); Estimated CRCL calculation 62 ml/min; Estimated Glomerular Filt Rate > 60; Glucose 131 mg/dL (70-99); Magnesium 2.1 mg/dL (1.8-2.4); Osmolality Calculated 296 mOsm/kg (285-295); Potassium 4.3 mmol/L (3.5-5.1); Sodium 141 mmol/L (136-145); Total Protein 5.3 g/dL (6.4-8.2)
[2023-07-13 08:00] VITALS: BP 140/78; PULSE 70; PULSE 84; RESP 14; TEMP 36.8; O2SAT 97
[2023-07-13] MEDS: CALCIUM CARBONATE (TUMS) 500 MG (200 MG ELEMENTAL) PO (08:49)
[2023-07-13] MEDS: CARBIDOPA/LEVODOPA 25/100 MG TABLET 1.5 TABLET PO (08:49)
[2023-07-13] MEDS: FUROSEMIDE 40 MG TABLET PO (08:50)
[2023-07-13] MEDS: allopurinoL 300 MG TABLET PO (08:50)
[2023-07-13] MEDS: APIXABAN 2.5 MG TABLET 5 MG PO (08:50)
[2023-07-13] MEDS: POTASSIUM CHLORIDE 20 MEQ ER TABLET 40 MEQ PO (08:50)
--- NOTE | 2023-07-13 12:34 | PC.NURSE ---
Pt dishcharged to home with spouse. VSS. Pt has an appointment at [facility] 07/13 at 1215 for an ECHO cardiogram. Discharge instructions given to and pt. They will call their PCP for a hospital follow up. All medications reviewed with pt/spouse. Arlettee given information regarding [facility] care programs that she can call about for help at home. Spouse verbalized understanding. Pt taken to family car via WC and assisted into the vehical.
--- NOTE | 2023-07-14 13:00 | ECHO_ITS ---
Patient Info Name: Jose Watson Age: 77 years : 1945 Gender: Male Ht: 73 in Wt: 174 lbs BSA: 2.02 m2 HR: 61 bpm BP: 123 / 78 mmHg Technical Quality: Fair Exam Date: 07/14/2023 12:16 PM Exam Location: Echo Lab Patient Status: Inpatient Admit Date: 07/12/2023 Staff Ordering Physician: Yenifer Mijares APRN Loss Prevention Supervisor: Edwin Mcneil RDCS Attending Provider: Buddy Ricardo MD Referring Physician: Maryana AMBRIZ; Exam Type: CA echo doppler color flow Study Info Indications - copd exacerbation History/Risk Factors Hypertension: No Dyslipidemia: No Congenital Heart Disease (CHD): No Peripheral Arterial Disease (PAD): No Myocardial Infarction ([place]): No Chronic Lung Disease: No Obesity: Yes Renal Disease: No Coronary Artery Disease (CAD) Yes Congestive Heart Failure (CHF): No Cardiomyopathy/LV Systolic Dysfunction: No Diabetes Mellitus: No COPD: On Meds Tobacco Use: Never Cerebrovascular Disease: No DVT Treatment: Apixaban Deep Vein Thrombosis (DVT): None Dialysis: None Frailty Scale (CSHA): 3: Managing Well Cardiac Arrest: No Prior Interventions Pacemaker: No PCI: No CABG: No Valve Surgery: No ICD: No Heart Transplant: No Summary 1. Left ventricular chamber dimension is moderately enlarged. 2. Left ventricular systolic function is normal, estimated at 60-65%. 3. There is mild concentric increased left ventricular wall thickness. 4. The left ventricular diastolic function is grade I diastolic dysfunction. 5. E/e' 7 is not elevated. 6. There is trace mitral valve regurgitation. 7. No pulmonary hypertension, estimated pulmonary arterial systolic pressure is 11 mmHg. Left Ventricle E/e' 7 is not elevated. Left ventricular chamber dimension is moderately enlarged. Left ventricular systolic function is normal, estimated at 60-65%. There is mild concentric increased left ventricular wall thickness. The left ventricular diastolic function is grade I diastolic dysfunction. Right Ventricle Right ventricular systolic function is normal and with normal TAPSE 1.9 cm. Right ventricular chamber dimension is normal. Left Atria Left atrial chamber dimension is normal. Right Atria Right atrial chamber dimension is normal. Aortic Valve The aortic valve is trileaflet. There is no aortic valve stenosis. There is no aortic valve regurgitation. Pulmonic Valve There is no pulmonic regurgitation. Mitral Valve There is no mitral valve stenosis. There is trace mitral valve regurgitation. Tricuspid Valve There is no tricuspid valve regurgitation. No pulmonary hypertension, estimated pulmonary arterial systolic pressure is 11 mmHg. Pericardium/Pleural There is no pericardial effusion. Inferior Vena Cava Normal inferior vena cava with >50% collapse upon inspiration consistent with normal right atrial pressure, 5 mmHg. Aorta The aortic root size at the sinus of Valsalva is normal. Left Ventricular Outflow Tract Name Value Normal LVOT 2D LVOT Diameter 2.0 cm LVOT Doppler LVOT Peak Velocity 97 cm/s LVOT Peak Gradient 4 mmHg
--- NOTE | 2023-07-15 18:02 | PM.DS ---
DS: Admitting Diagnosis Discharge Date 07/13/23 Admitting Diagnosis shortness of breath DS: Discharge Diagnosis Discharge Diagnosis Plan (1) COPD exacerbation: ?Code(s): J44.1 - Chronic obstructive pulmonary disease with (acute) exacerbation ?Status:?Acute ?Assessment and Plan: -Steroids - Albuterol - Oxygen as needed -- (2) Pulmonary embolism: ?Qualifiers: ?Acute cor pulmonale presence:?without acute cor pulmonale??Chronicity:?acute??Pulmonary embolism type:?unspecified? Qualified Code(s):?I26.99 - Other pulmonary embolism without acute cor pulmonale ?Code(s): I26.99 - Other pulmonary embolism without acute cor pulmonale ?Status:?Acute ?Assessment and Plan: -- monitor for shortness of breath -- Moe let make sure patient is taking his medication oxygen as needed (3) Dementia: ?Qualifiers: ?Dementia type:?unspecified type??Dementia behavioral disturbance:?without behavioral disturbance? Qualified Code(s):?F03.90 - Unspecified dementia without behavioral disturbance ?Code(s): F03.90 - Unspecified dementia, unspecified severity, without behavioral disturbance, psychotic disturbance, mood disturbance, and anxiety ?Status:?Acute ?Assessment and Plan: -- more advanced than family is willing to admit to . Plan -Echo to be completed today - Pt to have a repeat CT/PEt Scan? repeated as outpateint due to nodules noted Restart Moe. DS: Summary Hospital Course Reason for hospitalization: pulmonary embolus Hospital Course: Mr. Watson has been admitted to the hospital due to COPD exacerbation and pulmonary embolus. Patient is a very poor historian and not willing to offer much information.? Patient is not aware of the year and or why he is hear. Patient does not require any oxygen and is just laying there. 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 There is?pulmonary embolism involving the right upper and lower lobe segmental and subsegmental pulmonary arteries. 2: Irregular shaped 13 mm right lower lobe nodule. Recommend correlation with pet/CT or three-month follow-up low dose CT chest.? Patient will have a echo completed today and he will need to follow up with possible CT or PET scan outpatient. Patient will? be encouraged to take medication today.? Patient CoAg were normal unsure if pateint is taking Eliquis at home and we will restart him back on this medication today.? IV Steroids, Antibioitcs and breathing treatment to? be administered. Patient re-started on treatment eliquis at 10 mg BID for 1 week and then 5 mg PO BID. Patient will discharge home in care of his in stable condition. Time Spent with Patient Time attestation: Total time spent providing and/or coordinating discharge services: DS: Data Data Completed and Pending Labs on day of discharge: Preliminary micro results at discharge 07/11/23 13:40 Blood Culture - Preliminary Blood 07/11/23 13:21 Blood Culture - Preliminary Blood Discharge Plan Discharge Attending physician on discharge: Buddy Ricardo Consulting providers: Jolanta Walker; Salvador Cline V.; Sarkis Hunter Discharging Clinician: Yenifer Mijares Anticipated Discharge Date/Time: 07/13/23 09:04 Patient Disposition: Home Health Service Activity: june shower Diet: regular Discharge Instructions: You were admitted with concerns for possible COPD exacerbation and new finding of pulmonary embolism. You were previously on eliquis 2.5 mg twice a day. I would like for you to take the following, 1. Eliquis 10 mg twice a day for 7 days. Then start taking Eliquis 5 mg twice a day. This medication is a blood thinner for your clots in your lungs. 2. Doxycycline 100 mg tablet twice a day for 2 days. Augmentin 1 tablet twice a day for 2 days. This is the remaining doses of your antibiotics for probable pneumonia seen on imaging from 07/09/23. You have an ECHO scheduled as an o
--- NOTE | 2023-07-19 09:03 | PC.NURSE ---
Spoke with spouse Latasha, she is concerned due to weakness and feels he may be dying, wanting to speak to someone about hospice, they have residential home health but hasn't seen anyone, I called Taryn at [facility] and she will have Francia call Latasha today regarding what she can set up for them. Called Latasha back to update her solar project coordination specialist from [facility] today.
== END 2023-07-13 11:30 | disposition home health service (06) | DRG 176 ==
LOC: CHSED 15:36 → CHS2ND 15:41
PROVIDERS: Nurse Practitioner Acute Care; Admitting Provider Internal Medicine; Emergency Provider Emergency Medicine; PCP Internal Medicine; Visit Provider Internal Medicine
DX: I26.99 Other pulmonary embolism without acute cor pulmonale (principal); J44.1 Chronic obstructive pulmonary disease with (acute) exacerbation; I25.10 Atherosclerotic heart disease of native coronary artery without angina pectoris; E88.01 Alpha-1-antitrypsin deficiency; K21.9 Gastro-esophageal reflux disease without esophagitis; G20.A1 Parkinson's disease without dyskinesia, without mention of fluctuations; F02.80 Dementia in other diseases classified elsewhere, unspecified severity, without behavioral disturbance, psychotic disturbance, mood disturbance, and anxiety; Z86.718 Personal history of other venous thrombosis and embolism; Z79.01 Long term (current) use of anticoagulants; Z87.891 Personal history of nicotine dependence
CPT/HCPCS: 36415; 71045; 71275; 80053; 81001; 83605; 83735; 83880; 84443; 84484; 85025; 85055; 85380; 85610; 85730; 87040; 93005; 93306; 94640; 96361; 96365; 96372; 96374; 96375; 97161; 97165; 99285; A9270; G0378; J0696; J1650; J2405; J2919; J7030; Q9967

== ENCOUNTER 2023-07-14 12:19 | Outpatient (CLI) | payer MEDICARE, BC, SELFPAY ==
--- NOTE | 2023-07-14 12:16 | ECHO_ITS ---
This report was moved to the correct visit on 08/02/2023. The original report was signed by Marito Hernandez DO on 07/14/23 1500. Patient Info Name: Jose Watson Age: 77 years : 1945 Gender: Male Ht: 73 in Wt: 174 lbs BSA: 2.02 m2 HR: 61 bpm BP: 123 / 78 mmHg Technical Quality: Fair Exam Date: 07/14/2023 12:16 PM Exam Location: Echo Lab Patient Status: Inpatient Admit Date: 07/12/2023 Staff Ordering Physician: Yenifer Mijares APRN Derrick Engineer: Edwin Mcneil RDCS Attending Provider: Buddy Ricardo MD Referring Physician: Maryana AMBRIZ; Exam Type: CA echo doppler color flow Study Info Indications - copd exacerbation History/Risk Factors Hypertension: No Dyslipidemia: No Congenital Heart Disease (CHD): No Peripheral Arterial Disease (PAD): No Myocardial Infarction ([place]): No Chronic Lung Disease: No Obesity: Yes Renal Disease: No Coronary Artery Disease (CAD) Yes Congestive Heart Failure (CHF): No Cardiomyopathy/LV Systolic Dysfunction: No Diabetes Mellitus: No COPD: On Meds Tobacco Use: Never Cerebrovascular Disease: No DVT Treatment: Apixaban Deep Vein Thrombosis (DVT): None Dialysis: None Frailty Scale (CSHA): 3: Managing Well Cardiac Arrest: No Prior Interventions Pacemaker: No PCI: No CABG: No Valve Surgery: No ICD: No Heart Transplant: No Summary 1. Left ventricular chamber dimension is moderately enlarged. 2. Left ventricular systolic function is normal, estimated at 60-65%. 3. There is mild concentric increased left ventricular wall thickness. 4. The left ventricular diastolic function is grade I diastolic dysfunction. 5. E/e' 7 is not elevated. 6. There is trace mitral valve regurgitation. 7. No pulmonary hypertension, estimated pulmonary arterial systolic pressure is 11 mmHg. Left Ventricle E/e' 7 is not elevated. Left ventricular chamber dimension is moderately enlarged. Left ventricular systolic function is normal, estimated at 60-65%. There is mild concentric increased left ventricular wall thickness. The left ventricular diastolic function is grade I diastolic dysfunction. Right Ventricle Right ventricular systolic function is normal and with normal TAPSE 1.9 cm. Right ventricular chamber dimension is normal. Left Atria Left atrial chamber dimension is normal. Right Atria Right atrial chamber dimension is normal. Aortic Valve The aortic valve is trileaflet. There is no aortic valve stenosis. There is no aortic valve regurgitation. Pulmonic Valve There is no pulmonic regurgitation. Mitral Valve There is no mitral valve stenosis. There is trace mitral valve regurgitation. Tricuspid Valve There is no tricuspid valve regurgitation. No pulmonary hypertension, estimated pulmonary arterial systolic pressure is 11 mmHg. Pericardium/Pleural There is no pericardial effusion. Inferior Vena Cava Normal inferior vena cava with >50% collapse upon inspiration consistent with normal right atrial pressure, 5 mmHg. Aorta The aortic root size at the sinus of Valsalva is normal. Left Ventricular Outflow Tract Name Value Normal LVOT 2D
--- NOTE | 2023-07-14 13:00 | ECHO_ITS ---
Patient Info Name: Jose Watson Age: 77 years : 1945 Gender: Male Ht: 73 in Wt: 174 lbs BSA: 2.02 m2 HR: 61 bpm BP: 123 / 78 mmHg Technical Quality: Fair Exam Date: 07/14/2023 12:16 PM Exam Location: Echo Lab Patient Status: Outpatient Admit Date: 07/14/2023 Staff Ordering Physician: Yenifer Mijares APRN Hand Mounter: Edwin Mcneil RDCS Attending Provider: Buddy Ricardo MD Exam Type: CA echo doppler color flow History/Risk Factors Hypertension: No Dyslipidemia: No Congenital Heart Disease (CHD): No Peripheral Arterial Disease (PAD): No Myocardial Infarction ([place]): No Chronic Lung Disease: No Obesity: Yes Renal Disease: No Coronary Artery Disease (CAD) Yes Congestive Heart Failure (CHF): No Cardiomyopathy/LV Systolic Dysfunction: No Diabetes Mellitus: No COPD: On Meds Tobacco Use: Never Cerebrovascular Disease: No DVT Treatment: Apixaban Deep Vein Thrombosis (DVT): None Dialysis: None Frailty Scale (CSHA): 3: Managing Well Cardiac Arrest: No Prior Interventions Pacemaker: No PCI: No CABG: No Valve Surgery: No ICD: No Heart Transplant: No Summary 1. Left ventricular chamber dimension is moderately enlarged. 2. Left ventricular systolic function is normal, estimated at 60-65%. 3. There is mild concentric increased left ventricular wall thickness. 4. The left ventricular diastolic function is grade I diastolic dysfunction. 5. E/e' 7 is not elevated. 6. There is trace mitral valve regurgitation. 7. No pulmonary hypertension, estimated pulmonary arterial systolic pressure is 11 mmHg. Left Ventricle E/e' 7 is not elevated. Left ventricular chamber dimension is moderately enlarged. Left ventricular systolic function is normal, estimated at 60-65%. There is mild concentric increased left ventricular wall thickness. The left ventricular diastolic function is grade I diastolic dysfunction. Right Ventricle Right ventricular systolic function is normal and with normal TAPSE 1.9 cm. Right ventricular chamber dimension is normal. Left Atria Left atrial chamber dimension is normal. Right Atria Right atrial chamber dimension is normal. Aortic Valve The aortic valve is trileaflet. There is no aortic valve stenosis. There is no aortic valve regurgitation. Pulmonic Valve There is no pulmonic regurgitation. Mitral Valve There is no mitral valve stenosis. There is trace mitral valve regurgitation. Tricuspid Valve There is no tricuspid valve regurgitation. No pulmonary hypertension, estimated pulmonary arterial systolic pressure is 11 mmHg. Pericardium/Pleural There is no pericardial effusion. Inferior Vena Cava Normal inferior vena cava with >50% collapse upon inspiration consistent with normal right atrial pressure, 5 mmHg. Aorta The aortic root size at the sinus of Valsalva is normal. Left Ventricular Outflow Tract Name Value Normal LVOT 2D LVOT Diameter 2.0 cm LVOT Doppler LVOT Peak Velocity 97 cm/s LVOT Peak Gradient 4 mmHg LVOT Mean Gradient 2 mmHg LVOT VTI
== END 2023-07-14 12:20 | disposition home or self-care (01) ==
PROVIDERS: PCP Internal Medicine; Visit Provider Internal Medicine
DX: J44.1 Chronic obstructive pulmonary disease with (acute) exacerbation (principal); I51.7 Cardiomegaly
CPT/HCPCS: 93306

== ENCOUNTER 2023-07-17 21:42 | Emergency (ER) | payer MEDICARE, BC, SELFPAY ==
--- NOTE | ~2023-07-17 | XR_ITS ---
Clinical Indication: Chest pain PA and lateral views of the chest: Comparison: 07/11/2023 Findings: The lungs are clear, without evidence of focal consolidation or pleural effusion. Probable COPD. Cardiomediastinal silhouette is stable, with. Bones and soft tissues are unremarkable. Impression: No acute abnormality evident. Probable COPD. Reviewed, dictated and finalized at location . Impression: No acute abnormality evident. Probable COPD.
--- NOTE | 2023-07-17 21:45 | ED.GENADULT ---
HPI - General Adult General Chief complaint: Unspecified Stated complaint: hypotension/confusion Time Seen by Provider: 07/17/23 21:44 Source: patient and family Mode of arrival: ambulatory Limitations: no limitations History of Present Illness HPI narrative: Patient is a 77-year-old male with Parkinson's disease and worsening delirium over his baseline significant dementia. He has sundowning syndrome. He is a full DNR. Family is concerned about his worsening dementia process over the last 3 days. He had some occasional chest pain and shortness of breath. Onset (ago): day(s) (3) Location: chest Radiation: non-radiation Severity: mild Severity scale (1-10): 1 Quality: aching Pain Consistency: intermittent and now resolved Relieving factors: none Exacerbating factors: none Associated symptoms: confusion and shortness of breath Treatments prior to arrival: none Related Data Home Medications Medication Instructions Recorded Confirmed carbidopa 25 mg-levodopa 100 mg 1.5 tablet PO TID 07/11/23 07/17/23 tablet metoprolol succinate 25 mg 25 mg PO DAILY 07/17/23 07/17/23 tablet,extended release 24 hr Allergies Allergy/AdvReac Type Severity Reaction Status Date / Time azithromycin Allergy Mild Dizziness Verified 07/11/23 13:18 Sulfa (Sulfonamide Allergy Mild Rash Verified 07/11/23 13:18 Antibiotics) Review of Systems Review of Systems: All systems reviewed & are unremarkable except as noted in HPI and below Constitutional: Constitutional: Reports no additional constitutional complaints Eyes: Eyes: Reports no additional eye complaints ENT: Reports system reviewed and no additional complaints, except as documented Cardiovascular: Cardiovascular: Reports no additional cardiovascular complaints Respiratory: Respiratory: Reports no additional respiratory complaints Gastrointestinal: Gastrointestinal: Reports no additional gastrointestinal complaints Genitourinary: Genitourinary: Reports no additional male genitourinary complaints Musculoskeletal: Musculoskeletal: Reports no additional musculoskeletal complaints Integumentary/Breasts: Skin/Breast: Reports system reviewed and no additional complaints, except as docu Neurologic: Reports system reviewed and no additional complaints, except as documented Psychiatric: Psychiatric: Reports no additional psychiatric complaints Endocrine: Endocrine: Reports no additional endocrine complaints Hematologic/Lymphatic: Hematologic/Lymphatic: Reports no additional hematologic/lymphatic complaints Allergic/Immunologic: Allergic/Immunologic: Reports no additional allergic/immunologic complaints PMFSH Past Medical History Medical History Acute respiratory failure with hypoxemia [id number] deficiency Bilateral flank pain Bilateral lower extremity edema Community acquired pneumonia (~02/24/19) COPD (chronic obstructive pulmonary disease) Dietary counseling and surveillance (11/08/16) WINTER (dyspnea on exertion) Encounter for screening for malignant neoplasm of prostate Gastro-esophageal reflux disease without esophagitis Generalized abdominal pain History of coronary artery disease History of deep venous thrombosis or pulmonary embolus History of gastroesophageal reflux (GERD) History of gout Hypomagnesemia (~02/24/19) Leukocytosis Lower abdominal pain Orthostatic hypotension Personal history of colonic polyps Retinal artery branch occlusion, right eye Sepsis Sepsis with acute respiratory failure and septic shock Severe sepsis Wheezing Surgical History Surgical History History of cardiac catheterization History of tonsillectomy Family History Family History Other Unknown family medical history Social History Social History Sm
[2023-07-17 21:46] VITALS: BP 111/57; PULSE 71; RESP 19; TEMP 37; O2SAT 99
--- NOTE | 2023-07-17 22:05 | ECG_ITS ---
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 Measurements Intervals [place] Rate: 67 P: 83 [place]: 201 QRS: 69 QRSD: 96 T: 85 QT: 408 QTc: 433 Interpretive Statements SINUS RHYTHM WITH FREQUENT VENTRICULAR PREMATURE COMPLEXES No previous ECG available for comparison Electronically Signed On 07-19-2023 14:11:33 CDT by Janee Thompson M.D.
[2023-07-17 23:20] LABS: Basophils Absolute Auto 0.01 K/mm3 (0.00-0.10); Basophils Percent Auto 0.2 % (0.0-1.0); Eosinophils Absolute Auto 0.04 K/mm3 (0.02-0.50); Eosinophils Percent Auto 0.7 % (1.0-6.0); Hematocrit 43.8 % (37.0-46.0); Hemoglobin 14.2 g/dL (12.4-15.3); Immature Granulocyte Absolute 0.03 K/mm3 (0.00-0.00); Immature Granulocyte Percent A 0.5 % (0.0-0.0); Lymphocytes Absolute Auto 1.37 K/mm3 (1.10-4.50); Mean Corpuscular HGB Conc 32.4 g/dL (32-36); Mean Corpuscular Hemoglobin 32.4 pg (27.0-31.0); Mean Platelet Volume 10.5 fl (8.7-11.0); Monocytes Absolute Auto 0.79 K/mm3 (0.10-0.90); Monocytes Percent Auto 14.4 % (2.0-11.0); Neutrophils Absolute Auto 3.25 K/mm3 (1.70-7.20); Neutrophils Percent Auto 59.2 % (50.0-70.0); Platelet Count Result 162 K/mm3 (150-420); Red Blood Count 4.38 M/mm3 (4.70-6.10); Red Cell Distribution Width 13.6 % (11.6-14.4); White Blood Count 5.5 K/mm3 (4.8-10.8)
[2023-07-17 23:32] VITALS: BP 113/51; PULSE 63; RESP 18; O2SAT 97
[2023-07-17 23:43] LABS: Alanine Aminotransferase 13 U/L (16-63); Albumin Level 2.4 g/dL (3.4-5.0); Alkaline Phosphatase 88 U/L (46-116); Anion Gap 5 mmol/L (4-12); Aspartate Amino Transferase 26 U/L (15-37); Bilirubin,Total 0.9 mg/dL (0.00-1.00); Blood Urea Nitrogen 25 mg/dL (7-18); Carbon Dioxide 32 mmol/L (21-32); Chloride 102 mmol/L (98-108); Estimated CRCL calculation 52 ml/min; Estimated Glomerular Filt Rate 60; Glucose 112 mg/dL (70-99); Magnesium 2.3 mg/dL (1.8-2.4); NT Pro B Type Natriuretic Pept 482 pg/mL (0-450); Osmolality Calculated 293 mOsm/kg (285-295); Potassium 3.8 mmol/L (3.5-5.1); Sodium 139 mmol/L (136-145); Total Protein 5.1 g/dL (6.4-8.2); Troponin I 17.3 ng/L (0.00-60.4)
[2023-07-17 23:47] LABS: Bilirubin Urine Negative (Negative); Blood Urine Negative (Negative); Glucose Urine UA Negative (Negative); Ketones Urine 1+ (Negative); Leukocyte Esterase Ur Negative LEU/UL (Negative); Nitrate Urine Negative (Negative); Protein Urine Negative (Negative); Specific Grav Ur >= 1.030 (1.010-1.020); Urobilinogen Urine 0.2 mg/dL (0.2-1.0); pH Urine 5.5 (5.0-8.0)
[2023-07-17 23:56] LABS: Add Urine Microscopic? YES; Amorphous Sediment Urine Moderate; Appearance Urine Sl Cloudy (Clear); Color Urine Dark Orange (Yellow); Mucus Urine Heavy /lpf; RBC Urine 0-2 /hpf (0-2)
[2023-07-18] VITALS: BP 104/59; PULSE 74; RESP 18; O2SAT 95
--- NOTE | 2023-07-18 00:30 | PC.NURSE ---
Pts given info on need for f/u w/ pts PCP to address increasing agitation at night and increased confusion. Explained that decisions may need to be made on manager terminal care placement for pts increasing and declining sxs. Pts agreeable and will call his PMD in morning to get in for f/u.
[2023-07-18 00:40] VITALS: BP 114/85; PULSE 68; RESP 18; TEMP 36.3; O2SAT 94
== END 2023-07-18 00:40 | disposition home or self-care (01) ==
PROVIDERS: Emergency Provider Emergency Medicine; PCP Internal Medicine
DX: G20.A1 Parkinson's disease without dyskinesia, without mention of fluctuations (principal); F02.80 Dementia in other diseases classified elsewhere, unspecified severity, without behavioral disturbance, psychotic disturbance, mood disturbance, and anxiety; R07.9 Chest pain, unspecified; E88.01 Alpha-1-antitrypsin deficiency; J44.9 Chronic obstructive pulmonary disease, unspecified; K21.9 Gastro-esophageal reflux disease without esophagitis; I25.10 Atherosclerotic heart disease of native coronary artery without angina pectoris; Z86.718 Personal history of other venous thrombosis and embolism; Z87.891 Personal history of nicotine dependence; Z79.01 Long term (current) use of anticoagulants; Z79.51 Long term (current) use of inhaled steroids
CPT/HCPCS: 36415; 71046; 80053; 81001; 83735; 83880; 84484; 85025; 93005; 99284